=== PATIENT | male | born 1940 | race Caucasian/White ===

== ENCOUNTER 2017-05-20 11:33 | Day surgery (SDC) | payer MEDICARE, OTHER ==
[2017-05-20] MEDS ORDERED: PROPOFOL 10 MG/ML VIAL IV ONE (14:00)
[2017-05-20] MEDS ORDERED: FENTANYL PF 100MCG/2ML VIAL IV ONE (14:00)
[2017-05-20] MEDS ORDERED: LIDOCAINE 2% MDV (20MG/ML) 20ML VIAL IV ONE (14:00)
--- NOTE | 2017-05-21 13:00 | Operative Note ---
DATE OF SURGERY: 05/20/2017 OPERATION: 1. ESOPHAGOGASTRODUODENOSCOPY. 2. COLONOSCOPY. PREOPERATIVE DIAGNOSIS: Weight loss of unclear origin. POSTOPERATIVE DIAGNOSIS: Normal upper and lower endoscopies. PROCEDURE: After informed consent was obtained from the patient, he was placed in the left lateral decubitus position in the endoscopy suite, sedated and monitored by the department of anesthesia. Once sedated, a well-lubricated [id number] gastroscope was placed in the posterior oropharynx and under direct visualization passed to the proximal esophagus. The endoscope was advanced through the proximal, mid, and distal esophagus. The GE junction, esophagus, gastric body, antrum, pylorus, duodenal bulb, and sweep were unremarkable. J-turn views of the proximal stomach were unremarkable. The endoscope was then straightened and retracted from the patient with no new findings noted. Digital rectal exam was unremarkable. A well-lubricated [id number] colonoscope was inserted into the rectum and advanced to the cecum. Preparation quality was good. The cecum, ascending colon, transverse colon, descending colon, sigmoid colon, and rectum were unremarkable. No polyps, mass lesions, or inflammation seen. Forward and J-turn views of the rectum and anorectum were unremarkable. The endoscope was straightened, the rectal ampulla deflated, and the endoscope was removed. RECOMMENDATIONS: Given this patient's weight loss of unclear etiology, I have suggested he undergo a CT of the abdomen and pelvis, particularly if this has not been recently performed. As always, thank you for allowing me to participate in the healthcare of your patients. CC: Mark REED
== END 2017-05-20 13:45 | disposition home or self-care (01) ==
LOC: HOP 11:33
PROVIDERS: ATTEND Internal Medicine Gastroenterology
DX: R63.4 Abnormal weight loss (principal); D64.9 Anemia, unspecified; G11.9 Hereditary ataxia, unspecified; E78.00 Pure hypercholesterolemia, unspecified; E11.9 Type 2 diabetes mellitus without complications
CPT/HCPCS: 00810; 43235; G0121

== ENCOUNTER 2017-07-21 11:25 | Inpatient (IN) | payer MEDICARE, OTHER ==
[2017-07-21] MEDS ORDERED: 0.9 % SODIUM CHLORIDE 1,000 ML BAG IV ONE (11:32)
[2017-07-21 11:51] LABS: BASO % 0.3 % (0-6); EOS % 0.7 % (0-6); GRAN % 72.9 % (47-80); HEMATOCRIT 23.5 % (42.0-52.0); HEMOGLOBIN 7.4 gm/dl (14.0-18.0); LYMPH % 15.4 % (16-45); MEAN CELL VOLUME 115.8 fl (81-97); MEAN CORPUSCULAR HGB CONC 31.5 g/dl (32-36); MONO % 10.7 % (0-9); PLATELET COUNT 256 K/uL (130-400); RED BLOOD COUNT 2.03 M/uL (4.40-5.70); RED CELL DISTRIBUTION WIDTH 15.1 % (11.5-14.5); WHITE BLOOD COUNT W/O DIFF 7.4 K/uL (4.2-12.2)
[2017-07-21 11:53] LABS: MEAN CORPUSCULAR HEMOGLOBIN 36.4 pg (27-33)
--- NOTE | 2017-07-21 11:54 | Emergency Department Record ---
History of Present Illness - General Chief complaint: Weakness Stated complaint: WEAK Time Seen by Provider: 07/21/17 11:52 Mode of Arrival: EMS - History of Present Illness Onset/Timin -: Month(s) Location: Generalized Severity: Moderate Consistency: Constant Improves with: None Worsens with: Exertion Context: History of similar Associated Symptoms: Loss of appetite, Other - [place] Coma Scale Eye Response: (4) Open spontaneously Motor Response: (6) Obeys commands Verbal Response: (5) Oriented [place] Total: 15 - Related Data Allergies Allergy/AdvReac Type Severity Reaction Status Date / Time No Known Drug Intolerances Allergy Unknown PT UNSURE Unverified 07/21/17 11:30 OF REACTION Allergies: Allergy Unknown PT UNSURE Uncoded 07/21/17 11:30 OF REACTION Travel Screening - Travel/Exposure Within Last 30 Days Have you traveled within the last 30 days?: No - Travel/Exposure Within Last Year Have you traveled outside the [place] in the last year?: No - Additonal Travel Details Have you been exposed to anyone with a communicable illness?: No - Travel Symptoms Symptom Screening: None Review of Systems Reviewed: No additional complaints except as noted below Constitutional: Reports: As per HPI. Denies: Chills, Fever, Malaise, Night sweats, Weakness, Weight change Eyes: Reports: As per HPI. Denies: Eye discharge, Eye pain, Photophobia, Vision change ENT: Reports: As per HPI, Congestion. Denies: Dental pain, Ear pain, Epistaxis , Hearing loss, Throat pain Respiratory: Reports: As per HPI, Cough. Denies: Dyspnea, Hemoptysis, Stridor, Wheezes Cardiovascular: Reports: As per HPI, Other (left sided chest pain). Denies: Arrhythmia, Chest pain, Dyspnea on exertion, Edema, Murmurs, Orthopnea, Palpitations, Paroxysmal nocturnal dyspnea, Rheumatic Fever, Syncope Endocrine: Reports: As per HPI. Denies: Fatigue, Heat or cold intolerance, Polydipsia, Polyuria Gastrointestinal: Reports: As per HPI. Denies: Abdominal pain, Constipation, Diarrhea, Hematemesis, Hematochezia, Melena, Nausea, Vomiting Genitourinary: Reports: As per HPI. Denies: Dysuria, Frequency, Hematuria, Incontinence, Retention, Testicular pain, Testicular mass, Urgency Musculoskeletal: Reports: As per HPI. Denies: Arthralgia, Back pain, Gout, Joint swelling, Myalgia, Neck pain Skin: Reports: As per HPI. Denies: Bruising, Change in color, Change in hair/ nails, Lesions, Pruritus, Rash Neurological: Reports: As per HPI. Denies: Abnormal gait, Confusion, Headache, Numbness, Paresthesias, Seizure, Tingling, Tremors, Vertigo, Weakness Psychiatric: Reports: As per HPI. Denies: Anxiety, Auditory hallucinations, Depression, Homicidal thoughts, Suicidal thoughts, Visual hallucinations Hematological/Lymphatic: Reports: As per HPI. Denies: Anemia, Blood Clots, Easy bleeding, Easy bruising, Swollen glands Past Medical History - SOCIAL HISTORY Smoking Status: Former smoker Alcohol Use: None Drug Use: None - RESPIRATORY Hx Respiratory Disorders: No - CARDIOVASCULAR Hx Cardio Disorders: Yes Comment:: high cholesterol - NEURO Hx Neuro Disorders: Yes Hx Neuropathy: Yes Hx Weakness: Yes Comment:: ataxia - GI Hx GI Disorders: Yes Hx Reflux: Yes Hx Wt Loss/Wt Gain: Yes (weight loss of 30lbs in last year) Hx of Polyps: Yes - Hx Genitourinary Disorders: Yes Hx Prostate Problems: Yes - ENDOCRINE Hx Endocrine Disorders: Yes Hx Diabetes: Yes - MUSCULOSKELETAL Hx Musculoskeletal Disorders: No - PSYCH Hx Psych Problems: No - HEMATOLOGY/ONCOLOGY Hx Hematology/Oncology Disorders: Yes Hx Anemia: Yes Family Medical History Any Significant Family History?: Yes Hx Cancer: Brother/Sister Hx Dementia: Mother Hx Diabetes: Brother/Sister Hx Heart Disease: Brother/Sister Physical Exam - General General Appearance: Alert, Oriented x3, Cooperative, No acute distress - Head Head exam: Normal inspection - Eye Eye exam: Normal appearance, PERRL Pupils: Normal accommodation - ENT ENT exam: Normal exam, Mucous membranes moist, Normal external ear exam, Normal orophraynx, TM's normal bilaterally Ear exam: Normal external inspection. negative: External canal tenderness Nasal Exam: Normal inspection. negative: Discharge, Sinus tenderness Mouth exam: Normal external inspection, Tongue normal Teeth exam: Normal inspection. negative: Dental caries Throat exam: Normal inspection. negative: Tonsillar erythema, Tonsillar exudate - Neck Neck exam: Normal inspection, Full ROM. negative: Tenderness - Respiratory Respiratory exam: Decreased breath sounds (on the left side). negative: Respiratory distress - Cardiovascular Cardiovascular Exam: Regular rate, Normal rhythm, Normal heart sounds - GI/Abdominal GI/Abdominal exam: Soft, Normal bowel sounds. negative: Tenderness - Rectal Rectal exam: Deferred - exam: Deferred - Extremities Extremities exam: Normal inspection, Full ROM, Normal capillary refill. negative: Tenderness - Back Back exam: Reports: Normal inspection, Full ROM. Denies: Muscle spasm, Rash noted, Tenderness - Neurological Neurological exam: Alert, Normal gait, Oriented X3, Reflexes normal - Psychiatric Psychiatric exam: Normal affect, Normal mood - Skin Skin exam: Dry, Intact, Normal color, Warm Course Vital Signs 07/21/17 11:37 Temperature 98.3 F Pulse Rate 79 Respiratory 16 Rate Blood Pressure 143/73 Pulse Ox 96 patient looking better after IV fluids - Reevaluation(s) Reevaluation #1: Discussed case with Dr. Byrd and he was going for an iron infusion through [facility] in [place] on Jul 28. He was set up with his first iron infusion jul 28. He had a EGD only showed hiatal hernia and colonoscopy which was negative about one month ago. 07/21/17 12:44 07/21/17 12:49 Reevaluation #2: discussed case with Dr. Rios and will admit 07/21/17 13:24 Medical Decision Making - Data Complexity MDM Data: Labs Ordered and/or Reviewed, X-Ray Ordered and/or Reviewed (chest xray round left infiltrate which favors a pneumonia), EKG Ordered and/or Reviewed (No acute changes) - Lab Data Result diagrams: 07/21/17 11:36 07/21/17 11:36 Disposition Clinical Impression: Cerebral ataxia Anemia Qualifiers: Anemia type: unspecified type Qualified Code(s): D64.9 - Anemia, unspecified Pneumonia Qualifiers: Pneumonia type: due to unspecified organism Laterality: left Lung location: upper lobe of lung Qualified Code(s): J18.1 - Lobar pneumonia, unspecified organism Decision to Admit: Admit from ER Condition: (2) Stable Forms: Patient Portal Access Time of Disposition: 13:25 Quality - Quality Measures Quality Measures: N/A - Blood Pressure Screening Does Patient Have Any of the Following: No Blood Pressure Classification: Hypertensive Reading Systolic Measurement: 143 Diastolic Measurement: 73 Screening for High Blood Pressure: < Pre-Hypertensive BP, F/U Documented > [ [id number]] Pre-Hypertensive Follow-up Interventions: Referral to alternative/primary care provider.
[2017-07-21 12:08] LABS: BLOOD UREA NITROGEN 17 mg/dL (8-23); CREATININE 0.6 mg/dL (0.7-1.2); EST GLOMERULAR FILTRATION RATE > 60 mL/min
[2017-07-21 12:11] LABS: GLUCOSE,RANDOM 156 mg/dL (74-109)
[2017-07-21] MEDS ORDERED: CEFTRIAXONE SODIUM 1 GM in 0.9 % SODIUM CHLORIDE 100ML 100 ML IVPB ONE (12:33)
[2017-07-21] MEDS ORDERED: AZITHROMYCIN 500 MG TABLET PO ONE (12:33)
[2017-07-21 13:31] LABS: % SATURATION 26 % (20-50)
[2017-07-21] MEDS ORDERED: PRAVASTATIN SODIUM 40 MG PO SCH (14:15)
[2017-07-21] MEDS ORDERED: ASPIRIN 81 MG CHEWABLE TABLET PO SCH (16:00)
[2017-07-21] MEDS ORDERED: Non-Formulary MISC (Omeprazole [Prilosec] 20 MG) PO SCH (16:00)
--- NOTE | 2017-07-21 16:00 | History & Physical ---
History of Present Illness - Date of Service Date of Service for History & Physical: 07/22/17 - History of Present Illness History of Present Illness: Mr. Cardona is a 76 y/o male who comes in with complaint of weakness over the past several months. The patient's PCP Dr. Cunha has been working up the patient's progressive anemia and he most recently had EGD/Colonoscopy on Jul 10 which only revealed a small hiatal hernia but no GI bleed. On arrival to the ED the patient was noted to have a Hgb 7.4, with macrocytosis and low reticulocyte count. Labs otherwise were unremarkable but chest showing and left lower lobe infiltrate. The patient was started on Ceftriaxone and Azithromycin and admitted for further evaluation. Travel Screening - Travel/Exposure Within Last 30 Days Have you traveled within the last 30 days?: No - Travel/Exposure Within Last Year Have you traveled outside the [place] in the last year?: No - Additonal Travel Details Have you been exposed to anyone with a communicable illness?: No - Travel Symptoms Symptom Screening: None Review of Systems Constitutional: Reports: As per HPI. Denies: Chills, Fever, Malaise, Night sweats, Weakness, Weight change Eyes: Reports: As per HPI. Denies: Eye discharge, Eye pain, Photophobia, Vision change ENT: Reports: As per HPI, Congestion. Denies: Dental pain, Ear pain, Epistaxis , Hearing loss, Throat pain Respiratory: Reports: As per HPI, Cough. Denies: Dyspnea, Hemoptysis, Stridor, Wheezes Cardiovascular: Reports: As per HPI, Other (left sided chest pain). Denies: Arrhythmia, Chest pain, Dyspnea on exertion, Edema, Murmurs, Orthopnea, Palpitations, Paroxysmal nocturnal dyspnea, Rheumatic Fever, Syncope Endocrine: Reports: As per HPI. Denies: Fatigue, Heat or cold intolerance, Polydipsia, Polyuria Gastrointestinal: Reports: As per HPI. Denies: Abdominal pain, Constipation, Diarrhea, Hematemesis, Hematochezia, Melena, Nausea, Vomiting Genitourinary: Reports: As per HPI. Denies: Dysuria, Frequency, Hematuria, Incontinence, Retention, Testicular pain, Testicular mass, Urgency Musculoskeletal: Reports: As per HPI. Denies: Arthralgia, Back pain, Gout, Joint swelling, Myalgia, Neck pain Skin: Reports: As per HPI. Denies: Bruising, Change in color, Change in hair/ nails, Lesions, Pruritus, Rash Neurological: Reports: As per HPI. Denies: Abnormal gait, Confusion, Headache, Numbness, Paresthesias, Seizure, Tingling, Tremors, Vertigo, Weakness Psychiatric: Reports: As per HPI. Denies: Anxiety, Auditory hallucinations, Depression, Homicidal thoughts, Suicidal thoughts, Visual hallucinations Hematological/Lymphatic: Reports: As per HPI. Denies: Anemia, Blood Clots, Easy bleeding, Easy bruising, Swollen glands Past Medical History - SOCIAL HISTORY Smoking Status: Former smoker Alcohol Use: None Drug Use: None - RESPIRATORY Hx Respiratory Disorders: No - CARDIOVASCULAR Hx Cardio Disorders: Yes Comment:: high cholesterol - NEURO Hx Neuro Disorders: Yes Hx Neuropathy: Yes Hx Weakness: Yes Comment:: ataxia - GI Hx GI Disorders: Yes Hx Reflux: Yes Hx Wt Loss/Wt Gain: Yes (weight loss of 30lbs in last year) Hx of Polyps: Yes - Hx Genitourinary Disorders: Yes Hx Prostate Problems: Yes - ENDOCRINE Hx Endocrine Disorders: Yes Hx Diabetes: Yes - MUSCULOSKELETAL Hx Musculoskeletal Disorders: No - PSYCH Hx Psych Problems: No - HEMATOLOGY/ONCOLOGY Hx Hematology/Oncology Disorders: Yes Hx Anemia: Yes Family Medical History Any Significant Family History?: Yes Hx Cancer: Brother/Sister Hx Dementia: Mother Hx Diabetes: Brother/Sister Hx Heart Disease: Brother/Sister H&P Meds/Allergies - Allergies Allergies: Allergies Allergy/AdvReac Type Severity Reaction Status Date / Time No Known Drug Intolerances Allergy Unknown PT UNSURE Unverified 07/21/17 11:30 OF REACTION Allergies: Allergy Unknown PT UNSURE Uncoded 07/21/17 11:30 OF REACTION - Active Medications Active Medications: Current Medications Metformin HCl (Glucophage Ir) 500 mg PO DAILY [facility] Non-Formulary Medication (Finasteride [Finasteride]) 5 mg PO DAILY [facility] Non-Formulary Medication (Pravastatin Sodium [Pravastatin Sodium]) 40 mg PO QD [facility] Physical Exam - General General Appearance: Alert, Oriented x3, Cooperative, No acute distress - Head Head exam: Normal inspection - Eye Eye exam: Normal appearance, PERRL Pupils: Normal accommodation - ENT ENT exam: Normal exam, Mucous membranes moist, Normal external ear exam, Normal orophraynx, TM's normal bilaterally Ear exam: Normal external inspection. negative: External canal tenderness Nasal Exam: Normal inspection. negative: Discharge, Sinus tenderness Mouth exam: Normal external inspection, Tongue normal Teeth exam: Normal inspection. negative: Dental caries Throat exam: Normal inspection. negative: Tonsillar erythema, Tonsillar exudate - Neck Neck exam: Normal inspection, Full ROM. negative: Tenderness - Respiratory Respiratory exam: Decreased breath sounds (on the left side). negative: Respiratory distress - Cardiovascular Cardiovascular Exam: Regular rate, Normal rhythm, Normal heart sounds - GI/Abdominal GI/Abdominal exam: Soft, Normal bowel sounds. negative: Tenderness - Rectal Rectal exam: Deferred - exam: Deferred - Extremities Extremities exam: Normal inspection, Full ROM, Normal capillary refill. negative: Tenderness - Back Back exam: Reports: Normal inspection, Full ROM. Denies: Muscle spasm, Rash noted, Tenderness - Neurological Neurological exam: Alert, Normal gait, Oriented X3, Reflexes normal - Psychiatric Psychiatric exam: Normal affect, Normal mood - Skin Skin exam: Dry, Intact, Normal color, Warm Results - Labs Result Diagrams: 07/22/17 06:10 07/21/17 11:36 VTE H&P Assessment - Risk for VTE Risk for VTE: No Risk Level: Very Low Risk Assessment Date: 07/22/17 Risk Assessment Time: 06:54 VTE Orders Placed or Will Be Placed: No VTE Reason for No Prophylaxis: Not Indicated (pt ambulatory) Plan - Inpatient Certification Inpatient Certification: Admit to inpatient care: Based on my medical assessment, after consideration of patient's risk factors (age, co-morbidities and patient presenting symptoms and acuity), I expect that this patient will remain in the hospital greater than or equal to two midnights and that the services needed warrant inpatient care because: Patient Risk Factors: Community Acquired Pneumonia Estimated length of stay: 3 days The patient may reasonably be expected to be discharged or transferred to a hospital within 96 hours after admission to [facility]. Services needed: Post hospital care (if known): [] I certify that my determination is in accordance with my understanding of Medicare requirements for reasonable and necessary inpatient services. - Detailed Diagnosis and Plan (1) Community acquired pneumonia Current Visit: Yes Status: Acute Base Code: J18.9 - PNEUMONIA, UNSPECIFIED ORGANISM Comment: - CXR showing infiltrate of the left lower lobe CURB 65 - 1. - change IV abx to PO medications today. Currently on Recephin/Azithromycin. - titrate oxygen to maintain sats > 92% (2) Chronic anemia Current Visit: Yes Status: Chronic Base Code: D64.9 - ANEMIA, UNSPECIFIED Comment: - Hgb 7.4, MCV 115.8, retic 0.9 - EGD/Colonoscopy Jul 10 no active bleeding, fecal occult - negative - B12> 600, serum folate >20, Fe 41 - ordered RBC folate and peripheral blood smear. Transfuse if Hb < 7gm/dL - will do iron infusion tomorrow - Ferrous sulphate infusion scheduled in [place] on Jul 28 (3) Diabetes mellitus type 2 in nonobese Current Visit: Yes Status: Acute Base Code: E11.9 - TYPE 2 DIABETES MELLITUS WITHOUT COMPLICATIONS Comment: - serum glucose 156, CBG 162 - may resume Metformin 500mg BID - glucose accucheck measures AcHs (4) Hyperlipidemia Current Visit: Yes Status: Acute Base Code: E78.5 - HYPERLIPIDEMIA, UNSPECIFIED Comment: - resume Pravastatin (5) Cerebral ataxia Current Visit: Yes Status: Acute Base Code: G11.9 - HEREDITARY ATAXIA, UNSPECIFIED Comment: - fall precuations (6) Venous thromboembolism (VTE) prophylaxis not indicated Current Visit: Yes Status: Acute Base Code: [id number] - Comment: - pt is ambulatory, no pharmacological or mechanical prophylaxis needed. (7) Full code status Current Visit: Yes Status: Acute Base Code: Z78.9 - OTHER SPECIFIED HEALTH STATUS Comment: -FULL CODE - Disposition - Will likely D/C tomorrow.
[2017-07-21 17:13] LABS: URINE APPEARANCE CLEAR; URINE BILIRUBIN NEGATIVE (NEGATIVE); URINE BLOOD NEGATIVE (NEGATIVE); URINE COLOR YELLOW; URINE KETONE NEGATIVE (NEGATIVE); URINE LEUKOCYTE ESTERASE NEGATIVE (NEGATIVE); URINE NITRITE NEGATIVE (NEGATIVE); URINE PROTEIN NEGATIVE (NEGATIVE); URINE UROBILINOGEN 0.2 E.U./dL (0.20 - 1.00)
[2017-07-21] MEDS: PRAVASTATIN SODIUM 40 MG PO SCH (19:32)
[2017-07-21] MEDS ORDERED: NAPROXEN 250 MG TABLET PO ONE (21:30)
[2017-07-21] MEDS: CEFTRIAXONE SODIUM 1 GM in 0.9 % SODIUM CHLORIDE 100ML 100 ML IVPB SCH (22:12)
[2017-07-21] MEDS: 0.9 % SODIUM CHLORIDE 1000ML 1,000 ML IV PRN (22:12)
[2017-07-22 06:36] LABS: BASO % 0.3 % (0-6); EOS % 1.6 % (0-6); GRAN % 72.6 % (47-80); HEMATOCRIT 20.4 % (42.0-52.0); LYMPH % 13.5 % (16-45); MEAN CORPUSCULAR HGB CONC 31.9 g/dl (32-36); MEAN PLATELET VOLUME 10.8 fl (7.4-10.4); PLATELET COUNT 229 K/uL (130-400); RED BLOOD COUNT 1.74 M/uL (4.40-5.70); RED CELL DISTRIBUTION WIDTH 15.2 % (11.5-14.5); WHITE BLOOD COUNT W/O DIFF 6.8 K/uL (4.2-12.2)
[2017-07-22] MEDS: PANTOPRAZOLE SODIUM 40 MG TABLET PO SCH (06:55)
[2017-07-22 07:07] LABS: MEAN CORPUSCULAR HEMOGLOBIN 37.3 pg (27-33)
[2017-07-22 07:13] LABS: MEAN CELL VOLUME 117.2 fl (81-97)
--- NOTE | 2017-07-22 07:18 | RADIOLOGY REPORT ---
EXAM: CHEST, TWO VIEWS HISTORY: SHORTNESS OF BREATH FOR ONE AND A HALF YEARS. ACUTE NONPRODUCTIVE COUGH FOR ONE MONTH. TECHNIQUE: Two views of the chest were obtained. Comparison: Chest x-ray 05/05/17. FINDINGS: There is a new rounded opacity overlying the superior segment of the left lower lobe measuring 4.3 cm. Blunting of the left costophrenic angle consistent with pleural effusion. Minimal strandy density left base likely atelectasis. The right lung is clear. The cardiac silhouette is top normal in size. Elevated left hemidiaphragm. Osteopenia. IMPRESSION: NEW ROUNDED DENSITY PROJECTING OVER THE SUPERIOR SEGMENT OF THE LEFT LOWER LOBE MEASURING 4.3 CM LIKELY DUE TO PNEUMONIA GIVEN THE RAPID APPEARANCE FROM THE PRIOR STUDY. RECOMMEND FOLLOW-UP AFTER ANTIBIOTIC THERAPY TO INSURE CLEARING. PROBABLE SMALL LEFT PLEURAL EFFUSION. JOB NUMBER: [id number] [facility]
[2017-07-22] MEDS: ASPIRIN 81 MG CHEWABLE TABLET PO SCH (10:06)
[2017-07-22] MEDS: METFORMIN 500 MG TABLET PO SCH (10:07)
[2017-07-22] MEDS: CEFTRIAXONE SODIUM 1 GM in 0.9 % SODIUM CHLORIDE 100ML 100 ML IVPB SCH (10:07)
[2017-07-22] MEDS: AZITHROMYCIN 500 MG TABLET PO SCH (10:08)
[2017-07-22 10:32] LABS: IMMED. SPIN CROSSMATCH COMPATIBLE
[2017-07-22 10:33] LABS: ABO GROUP AB; ANTIBODY SCREEN NEGATIVE (NEGATIVE); RH TYPE NEGATIVE
[2017-07-22] MEDS ORDERED: ACETAMINOPHEN 500 MG TABLET PO PRN (11:29)
[2017-07-22] MEDS ORDERED: ALPRAZOLAM 0.25 MG TABLET PO ONE (13:52)
[2017-07-22] MEDS ORDERED: DIPHENHYDRAMINE HCL 25 MG CAPSULE PO PRN (16:08)
[2017-07-22] MEDS ORDERED: CEFDINIR 300 MG CAPSULE PO SCH (16:30)
--- NOTE | 2017-07-22 16:30 | Physician Progress Note ---
Subjective - Date Date of Physician Progress Note: 07/22/17 - Subjective Subjective Comment: Patient reports feeling weaker this morning. He appears anxious but is alert, and oriented. Objective - Vital Signs Vital Signs: Vital Signs - Last 24 Hrs Temp Pulse Pulse Resp BP BP Pulse Ox 07/22/17 14:15 99.1 F 85 18 119/68 94 L 07/22/17 13:00 99.1 F 86 20 127/72 96 07/22/17 12:25 98.6 F 116/71 07/22/17 11:21 98.6 F 86 20 116/71 95 07/22/17 10:00 98.2 F 89 18 122/72 96 07/22/17 09:00 22 07/22/17 06:00 82 18 126/70 07/22/17 04:43 88 16 96 07/21/17 22:50 88 16 95 07/21/17 21:00 18 07/21/17 20:58 99.6 F 07/21/17 20:00 99.9 F H 86 18 109/59 96 - General General Appearance: Alert, Oriented x3, Cooperative, No acute distress - Head Head exam: Normal inspection - Eye Eye exam: Normal appearance, PERRL Pupils: Normal accommodation - ENT ENT exam: Normal exam, Mucous membranes moist, Normal external ear exam, Normal orophraynx, TM's normal bilaterally Ear exam: Normal external inspection. negative: External canal tenderness Nasal Exam: Normal inspection. negative: Discharge, Sinus tenderness Mouth exam: Normal external inspection, Tongue normal Teeth exam: Normal inspection. negative: Dental caries Throat exam: Normal inspection. negative: Tonsillar erythema, Tonsillar exudate - Neck Neck exam: Normal inspection, Full ROM. negative: Tenderness - Respiratory Respiratory exam: Decreased breath sounds (on the left side). negative: Respiratory distress - Cardiovascular Cardiovascular Exam: Regular rate, Normal rhythm, Normal heart sounds - GI/Abdominal GI/Abdominal exam: Soft, Normal bowel sounds. negative: Tenderness - Rectal Rectal exam: Deferred - exam: Deferred - Extremities Extremities exam: Normal inspection, Full ROM, Normal capillary refill. negative: Tenderness - Back Back exam: Reports: Normal inspection, Full ROM. Denies: Muscle spasm, Rash noted, Tenderness - Neurological Neurological exam: Alert, Normal gait, Oriented X3, Reflexes normal - Psychiatric Psychiatric exam: Normal affect, Normal mood - Skin Skin exam: Dry, Intact, Normal color, Warm Assessment and Plan - Assessment and Plan (1) Community acquired pneumonia Current Visit: Yes Status: Acute Base Code: J18.9 - PNEUMONIA, UNSPECIFIED ORGANISM Comment: - CXR showing infiltrate of the left lower lobe CURB 65 - 1. - change IV abx to PO medications today. Currently on Recephin/Azithromycin. - titrate oxygen to maintain sats > 92% (2) Chronic anemia Current Visit: Yes Status: Chronic Base Code: D64.9 - ANEMIA, UNSPECIFIED Comment: - Hgb 7.4 --> 6.5 , MCV 115.8, retic 0.9 - EGD/Colonoscopy Jul 10 no active bleeding, fecal occult - negative - B12> 600, serum folate >20, Fe 41 - ordered RBC folate and peripheral blood smear. Transfuse if Hb < 7gm/dL - will do iron infusion tomorrow - Ferrous sulphate infusion scheduled in [place] on Jul 28 (3) Diabetes mellitus type 2 in nonobese Current Visit: Yes Status: Acute Base Code: E11.9 - TYPE 2 DIABETES MELLITUS WITHOUT COMPLICATIONS Comment: - serum glucose 156, CBG 162 - may resume Metformin 500mg BID - glucose accucheck measures AcHs (4) Hyperlipidemia Current Visit: Yes Status: Acute Base Code: E78.5 - HYPERLIPIDEMIA, UNSPECIFIED Comment: - resume Pravastatin (5) Cerebral ataxia Current Visit: Yes Status: Acute Base Code: G11.9 - HEREDITARY ATAXIA, UNSPECIFIED Comment: - fall precuations (6) Venous thromboembolism (VTE) prophylaxis not indicated Current Visit: Yes Status: Acute Base Code: [id number] - Comment: - pt is ambulatory, no pharmacological or mechanical prophylaxis needed. (7) Full code status Current Visit: Yes Status: Acute Base Code: Z78.9 - OTHER SPECIFIED HEALTH STATUS Comment: -FULL CODE - Disposition Disposition: - Will likely D/C tomorrow. Results - Labs Result Diagrams: 07/22/17 06:10 07/21/17 11:36 Labs Last 24 Hours: Laboratory Results - last 24 hr 07/21/17 07/21/17 07/21/17 17:00 17:00 17:15 WBC RBC Hgb Hct MCV MCH MCHC RDW Plt Count MPV Gran % Lymphocytes % Monocytes % Eosinophils % Basophils % POC Glucose 162 H Folate Urine Color Yellow Urine Appearance Clear Urine pH 6.0 Ur Specific [place] 1.025 Urine Protein Negative Urine Glucose (UA) 100 mg/dl H Urine Ketones Negative Urine Blood Negative Urine Nitrite Negative Urine Bilirubin Negative Urine Urobilinogen 0.2 Ur Leukocyte Esterase Negative Stool Occult Blood Negative ABO Group Rh Factor Antibody Screen 07/22/17 07/22/17 07/22/17 06:10 06:10 06:10 WBC 6.8 RBC 1.74 L Hgb Hct 20.4 L MCV 117.2 H MCH 37.3 H MCHC 31.9 L RDW 15.2 H Plt Count 229 MPV 10.8 H Gran % 72.6 Lymphocytes % 13.5 L Monocytes % 12.0 H Eosinophils % 1.6 Basophils % 0.3 POC Glucose Folate > 20.00 Urine Color Urine Appearance Urine pH Ur Specific [place] Urine Protein Urine Glucose (UA) Urine Ketones Urine Blood Urine Nitrite Urine Bilirubin Urine Urobilinogen Ur Leukocyte Esterase Stool Occult Blood ABO Group Ab Rh Factor Negative Antibody Screen Negative DVT/PE Assessment - Risk for VTE Risk for VTE: No Risk Level: Very Low Risk Assessment Date: 07/22/17 Risk Assessment Time: 06:54 VTE Orders Placed or Will Be Placed: No VTE Reason for No Prophylaxis: Not Indicated (pt ambulatory) - Active Medicaitons Current Medications: Current Medications Acetaminophen (Tylenol 500mg Tab) 500 mg PO Q4H PRN PRN Reason: Abdominal Pain Last Admin: 07/22/17 12:38 Dose: 500 mg Aspirin (Aspirin Chewable) 81 mg PO DAILY [facility] Last Admin: 07/22/17 10:06 Dose: 81 mg Azithromycin (Zithromax) 500 mg PO DAILY [facility] Last Admin: 07/22/17 10:08 Dose: 500 mg Diphenhydramine HCl (Benadryl Capsule) 25 mg PO QHS PRN PRN Reason: INSOMNIA Sodium Chloride () 1,000 mls @ 100 mls/hr IV .Q10H PRN PRN Reason: LARGE VOLUME IV Last Admin: 07/21/17 22:12 Dose: 100 mls/hr Ceftriaxone Sodium 1 gm/ (Sodium Chloride) 100 mls @ 100 mls/hr IVPB Q12HR [facility] Stop: 07/26/17 22:01 Last Admin: 07/22/17 10:07 Dose: 100 mls/hr Metformin HCl (Glucophage Ir) 500 mg PO DAILY [facility] Last Admin: 07/22/17 10:07 Dose: 500 mg Non-Formulary Medication (Finasteride [Finasteride]) 5 mg PO 1730 [facility] Non-Formulary Medication (Pravastatin Sodium [Pravastatin Sodium]) 40 mg PO 1730 [facility] Last Admin: 07/21/17 19:32 Dose: Not Given [facility] Admin: 07/22/17 06:55 Dose: 40 mg AMI Plan - Labs Result Diagrams: 07/22/17 06:10 07/21/17 11:36
[2017-07-22 17:00] LABS: HEMATOCRIT 23.7 % (42.0-52.0); HEMOGLOBIN 7.5 gm/dl (14.0-18.0)
[2017-07-22] MEDS: PRAVASTATIN SODIUM 40 MG PO SCH (17:01)
[2017-07-22] MEDS ORDERED: Non-Formulary MISC (Finasteride [Finasteride] 5 MG) PO SCH (17:30)
[2017-07-23] MEDS: 0.9 % SODIUM CHLORIDE 1000ML 1,000 ML IV PRN (02:27)
[2017-07-23] MEDS: PANTOPRAZOLE SODIUM 40 MG TABLET PO SCH (07:03)
[2017-07-23] MEDS ORDERED: CEFDINIR 300 MG CAPSULE PO SCH (10:00)
[2017-07-23] MEDS: AZITHROMYCIN 500 MG TABLET PO SCH (10:06)
[2017-07-23] MEDS: ASPIRIN 81 MG CHEWABLE TABLET PO SCH (10:06)
[2017-07-23] MEDS: METFORMIN 500 MG TABLET PO SCH (10:06)
[2017-07-23] MEDS ORDERED: IRON SUCROSE COMPLEX 500 MG in 0.9 % SODIUM CHLORIDE 250ML 250 ML IVPB ONE (11:15)
--- NOTE | 2017-07-23 16:37 | Discharge Summary ---
Providers Date of admission: 07/21/17 15:47 Attending physician: SULEMA MORRIS Primary care physician: JEROME DICKSON D.O. Physical Exam - Vital Signs Vital Signs: Vital Signs - Last 24 Hrs Temp Pulse Resp BP Pulse Ox 07/23/17 14:00 99.3 F 86 18 130/74 95 07/23/17 10:00 98.8 F 89 18 97/72 95 07/23/17 09:44 20 07/23/17 06:00 98.1 F 78 18 140/72 94 L 07/22/17 21:54 98.8 F 76 18 133/75 94 L 07/22/17 21:18 16 94 L 07/22/17 18:00 97.5 F L 79 18 120/63 96 - General General Appearance: Alert, Oriented x3, Cooperative, No acute distress - Head Head exam: Normal inspection - Eye Eye exam: Normal appearance, PERRL Pupils: Normal accommodation - ENT ENT exam: Normal exam, Mucous membranes moist, Normal external ear exam, Normal orophraynx, TM's normal bilaterally Ear exam: Normal external inspection. negative: External canal tenderness Nasal Exam: Normal inspection. negative: Discharge, Sinus tenderness Mouth exam: Normal external inspection, Tongue normal Teeth exam: Normal inspection. negative: Dental caries Throat exam: Normal inspection. negative: Tonsillar erythema, Tonsillar exudate - Neck Neck exam: Normal inspection, Full ROM. negative: Tenderness - Respiratory Respiratory exam: Decreased breath sounds (on the left side). negative: Respiratory distress - Cardiovascular Cardiovascular Exam: Regular rate, Normal rhythm, Normal heart sounds - GI/Abdominal GI/Abdominal exam: Soft, Normal bowel sounds. negative: Tenderness - Rectal Rectal exam: Deferred - exam: Deferred - Extremities Extremities exam: Normal inspection, Full ROM, Normal capillary refill. negative: Tenderness - Back Back exam: Reports: Normal inspection, Full ROM. Denies: Muscle spasm, Rash noted, Tenderness - Neurological Neurological exam: Alert, Normal gait, Oriented X3, Reflexes normal - Psychiatric Psychiatric exam: Normal affect, Normal mood - Skin Skin exam: Dry, Intact, Normal color, Warm Hospitalization - Hospitalization Admission Diagnosis: pneumonia left upper lobe. left pleural effusion - Problem List/Discharge Diagnosis (1) Community acquired pneumonia Current Visit: Yes Status: Acute Base Code: J18.9 - PNEUMONIA, UNSPECIFIED ORGANISM Comment: - CXR showing infiltrate of the left lower lobe CURB 65 - 1. - change IV abx to PO medications today. Currently on Recephin/Azithromycin. - titrate oxygen to maintain sats > 92% (2) Chronic anemia Current Visit: Yes Status: Chronic Base Code: D64.9 - ANEMIA, UNSPECIFIED Comment: - Hgb 7.4 --> 6.5 , MCV 115.8, retic 0.9 - EGD/Colonoscopy Jul 10 no active bleeding, fecal occult - negative - B12> 600, serum folate >20, Fe 41 - ordered RBC folate and peripheral blood smear. Transfuse if Hb < 7gm/dL - will do iron infusion tomorrow - Ferrous sulphate infusion scheduled in [place] on Jul 28 (3) Diabetes mellitus type 2 in nonobese Current Visit: Yes Status: Acute Base Code: E11.9 - TYPE 2 DIABETES MELLITUS WITHOUT COMPLICATIONS Comment: - serum glucose 156, CBG 162 - may resume Metformin 500mg BID - glucose accucheck measures AcHs (4) Hyperlipidemia Current Visit: Yes Status: Acute Base Code: E78.5 - HYPERLIPIDEMIA, UNSPECIFIED Comment: - resume Pravastatin (5) Cerebral ataxia Current Visit: Yes Status: Acute Base Code: G11.9 - HEREDITARY ATAXIA, UNSPECIFIED Comment: - fall precuations (6) Venous thromboembolism (VTE) prophylaxis not indicated Current Visit: Yes Status: Acute Base Code: [id number] - Comment: - pt is ambulatory, no pharmacological or mechanical prophylaxis needed. (7) Full code status Current Visit: Yes Status: Acute Base Code: Z78.9 - OTHER SPECIFIED HEALTH STATUS Comment: -FULL CODE - Disposition - Will likely D/C tomorrow. - Hospitalization Course Abnormal Labs: Abnormal Lab Results 07/21/17 07/21/17 07/22/17 Range/Units 17:00 17:15 06:10 RBC 1.74 L (4.40-5.70) M/uL Hgb (14.0-18.0) gm/dl Hct 20.4 L (42.0-52.0) % MCV 117.2 H (81-97) fl MCH 37.3 H (27-33) pg MCHC 31.9 L (32-36) g/dl RDW 15.2 H (11.5-14.5) % MPV 10.8 H (7.4-10.4) fl Lymphocytes % 13.5 L (16-45) % Monocytes % 12.0 H (0-9) % POC Glucose 162 H (70-110) mg/dL Urine Glucose (UA) 100 mg/dl H (NEGATIVE) 07/22/17 Range/Units 16:56 RBC (4.40-5.70) M/uL Hgb 7.5 L (14.0-18.0) gm/dl Hct 23.7 L (42.0-52.0) % MCV (81-97) fl MCH (27-33) pg MCHC (32-36) g/dl RDW (11.5-14.5) % MPV (7.4-10.4) fl Lymphocytes % (16-45) % Monocytes % (0-9) % POC Glucose (70-110) mg/dL Urine Glucose (UA) (NEGATIVE) Condition at Discharge: (2) Stable Discharge Medications - Discharge Medications Prescriptions: Cefdinir 300 mg PO Q12HR 3 Days #6 capsule Azithromycin [Zithromax] 500 mg PO DAILY 3 Days #3 tab Home Medications: Ambulatory Orders Aspirin 81 mg PO QD tab.chew 05/05/17 [Last Taken 07/21/17] Finasteride 5 mg PO QD tab 05/05/17 [Last Taken 07/21/17] Loratadine 10 mg PO QD tab 05/05/17 [Last Taken 07/21/17] Metformin HCl 500 mg PO DAILY tab 05/05/17 [Last Taken 07/21/17] [place]-3 Fatty Acids/Fish Oil [Fish Oil 1,000 mg Softgel] 1 each PO DAILY cap [Last Taken 07/21/17] Omeprazole [Prilosec] 20 mg PO QD cap 05/05/17 [Last Taken 07/21/17] Pravastatin Sodium 40 mg PO QD tab 05/05/17 [Last Taken 07/21/17] Azithromycin [Zithromax] 500 mg PO DAILY 3 Days #3 tab 07/23/17 [Last Taken Unknown] Cefdinir 300 mg PO Q12HR 3 Days #6 capsule 07/23/17 [Last Taken Unknown] Discharge Plan - Discharge Instructions Additional Instructions: - follow up with Dr. Cunha in 5-10 days. - appt with Heme/oncology on Jul 28 - Home care nursing arranged with SW to come out to home tomorrow to assess needs. Quality Measures - Quality Measures Quality Measures: Advance Directives, Documentation of Current Medications in Medical Record, Elder Maltreatment Screen and Follow-Up Plan, Screening for High Blood Pressure and F/U Documented - Current Medications Quality Measure: Measure #130: Documentation of Current Medications - Blood Pressure Screening Quality Measure: Screening for High Blood Pressure and Follow-Up Documented Blood Pressure Classification: Normal BP Reading Systolic Measurement: 116 Diastolic Measurement: 71 Screening for High Blood Pressure: < Normal BP, F/U Not Required > [G8783] - Advance Directives Quality Measure: Measure #47: Care Plan Advance Directives Established: No Advance Directives Information Provided To Patient: No Advance Directives on File: No Living Will: Yes Power of Strip Cutter: Yes Power of Strip Cutter Name: Dayna Cardona - Elder Abuse Suspicion Index Screening: Elder Abuse Suspicion Index Screening Rely on people for bathing, dressing, shopping, banking, etc: No Prevented from getting food, clothes, medication, etc: No Made to feel shamed or threatened by someone: No Forced to sign papers or use money against will: No Feel afraid, touched in ways not wanted or hurt physically: No Poor eye contact, withdrawn, malnourished, cuts or bruises: No Screening Result: Negative result EASI Reference Information: Cassandra KNIGHT, Ирина C, Nia D, Annette Collins.Development and validation of a tool to assist physicians identification of elder abuse: The Elder Abuse Suspicion Index (EASI ). Journal of Elder Abuse and Neglect, 2008; 20 (3): 276-300. - Elder Maltreatment Screen Quality Measures: Elder Maltreatment Screen and Follow-Up Plan Elder Maltreatment Screen: <Negative, No Follow-Up Plan Required> [G8734]
== END 2017-07-23 16:55 | disposition home health service (06) | DRG 194 ==
LOC: ER 11:25 → MEDSURG 15:47
PROVIDERS: ADMIT Internal Medicine; ATTEND Internal Medicine
PROC: 30233N1 Transfusion of Nonautologous Red Blood Cells into Peripheral Vein, Percutaneous Approach (ICD-10-PCS; principal; 2017-07-22)
DX: J18.9 Pneumonia, unspecified organism (principal); G11.9 Hereditary ataxia, unspecified; E78.00 Pure hypercholesterolemia, unspecified; D64.9 Anemia, unspecified; E11.9 Type 2 diabetes mellitus without complications; Z79.84 Long term (current) use of oral hypoglycemic drugs; Z78.9 Other specified health status; Z87.891 Personal history of nicotine dependence
CPT/HCPCS: 36416; 71020; 80048; 81003; 82272; 82553; 82607; 82728; 82746; 82948; 83550; 83605; 84484; 85014; 85018; 85025; 85044; 85730; 86850; 86900; 86901; 93005; 93010; 94760; 96365; 99223; 99233; 99239; 99285; J7050

== ENCOUNTER 2017-10-16 15:40 | Emergency (ER) | payer MEDICARE, OTHER ==
[2017-10-16] MEDS ORDERED: ASPIRIN 81 MG CHEWABLE TABLET PO ONE (15:55)
[2017-10-16] MEDS ORDERED: 0.9 % SODIUM CHLORIDE 1000ML 1,000 ML IV PRN (15:55)
[2017-10-16] MEDS ORDERED: ACETAMINOPHEN 500 MG TABLET PO ONE (15:59)
--- NOTE | 2017-10-16 16:06 | Emergency Department Record ---
History of Present Illness - General Chief Complaint: Chest Pain Stated Complaint: CHEST YAMILA/CHEST PAIN Time Seen by Provider: 10/16/17 15:51 Source: Patient, RN notes reviewed - History of Present Illness Initial Comments: pt came to the ED SOB and cough productive clear mucous and states this came on 4 days ago and he got two units of blood 10 days ago at [facility]. Chest pain mostly with coughing, Patient had one bone marrow and they are planning another bone marrow.GI work up negative for bleeding. CAD history and he said a silent [place]. He stopped smoking at 37 years of age. He also states the chest pain is radiating down the left arm. Patient states when he walks about 15 feet he get chest pain and pain radiates down both arms. Patient has ataxia which is chronic. Patient's hemotologist is at [facility] possible Dr. Baldev Almaraz - Related Data Previous Rx's Medication Instructions Recorded Azithromycin [Zithromax] 500 mg PO DAILY 3 Days #3 tab 07/23/17 Cefdinir 300 mg PO Q12HR 3 Days #6 capsule 07/23/17 Allergies Allergy/AdvReac Type Severity Reaction Status Date / Time No Known Drug Intolerances Allergy Unknown PT UNSURE Unverified 07/21/17 11:30 OF REACTION Allergies: Allergy Unknown PT UNSURE Uncoded 07/21/17 11:30 OF REACTION Review of Systems Reviewed: No additional complaints except as noted below Constitutional: Reports: As per HPI. Denies: Chills, Fever, Malaise, Night sweats, Weakness, Weight change Eyes: Reports: As per HPI. Denies: Eye discharge, Eye pain, Photophobia, Vision change ENT: Reports: As per HPI, Congestion. Denies: Dental pain, Ear pain, Epistaxis , Hearing loss, Throat pain Respiratory: Reports: As per HPI, Cough, Dyspnea. Denies: Hemoptysis, Stridor, Wheezes Cardiovascular: Reports: As per HPI, Chest pain. Denies: Arrhythmia, Dyspnea on exertion, Edema, Murmurs, Orthopnea, Palpitations, Paroxysmal nocturnal dyspnea, Rheumatic Fever, Syncope Endocrine: Reports: As per HPI. Denies: Fatigue, Heat or cold intolerance, Polydipsia, Polyuria Gastrointestinal: Reports: As per HPI. Denies: Abdominal pain, Constipation, Diarrhea, Hematemesis, Hematochezia, Melena, Nausea, Vomiting Genitourinary: Reports: As per HPI. Denies: Dysuria, Frequency, Hematuria, Incontinence, Retention, Testicular pain, Testicular mass, Urgency Musculoskeletal: Reports: As per HPI. Denies: Arthralgia, Back pain, Gout, Joint swelling, Myalgia, Neck pain Skin: Reports: As per HPI. Denies: Bruising, Change in color, Change in hair/ nails, Lesions, Pruritus, Rash Neurological: Reports: As per HPI. Denies: Abnormal gait, Confusion, Headache, Numbness, Paresthesias, Seizure, Tingling, Tremors, Vertigo, Weakness Psychiatric: Reports: As per HPI. Denies: Anxiety, Auditory hallucinations, Depression, Homicidal thoughts, Suicidal thoughts, Visual hallucinations Hematological/Lymphatic: Reports: As per HPI. Denies: Anemia, Blood Clots, Easy bleeding, Easy bruising, Swollen glands Past Medical History - SOCIAL HISTORY Smoking Status: Former smoker Drug Use: None - RESPIRATORY Hx Respiratory Disorders: No - CARDIOVASCULAR Hx Cardio Disorders: Yes Comment:: high cholesterol - NEURO Hx Neuro Disorders: Yes Hx Neuropathy: Yes Hx Weakness: Yes Comment:: ataxia - GI Hx GI Disorders: Yes Hx Reflux: Yes Hx Wt Loss/Wt Gain: Yes (weight loss of 30lbs in last year) Hx of Polyps: Yes - Hx Genitourinary Disorders: Yes Hx Prostate Problems: Yes - ENDOCRINE Hx Endocrine Disorders: Yes Hx Diabetes: Yes - MUSCULOSKELETAL Hx Musculoskeletal Disorders: No - PSYCH Hx Psych Problems: No - HEMATOLOGY/ONCOLOGY Hx Hematology/Oncology Disorders: Yes Hx Anemia: Yes Family Medical History Hx Cancer: Brother/Sister Hx Dementia: Mother Hx Diabetes: Brother/Sister Hx Heart Disease: Brother/Sister Physical Exam - General General Appearance: Alert, Oriented x3, Cooperative, Mild distress - Head Head exam: Normal inspection - Eye Eye exam: Normal appearance, PERRL Pupils: Normal accommodation - ENT ENT exam: Normal exam, Mucous membranes moist, Normal external ear exam, Normal orophraynx, TM's normal bilaterally Ear exam: Normal external inspection. negative: External canal tenderness Nasal Exam: Normal inspection. negative: Discharge, Sinus tenderness Mouth exam: Normal external inspection, Tongue normal Teeth exam: Normal inspection. negative: Dental caries Throat exam: Normal inspection. negative: Tonsillar erythema, Tonsillar exudate - Neck Neck exam: Normal inspection, Full ROM. negative: Tenderness - Respiratory Respiratory exam: Normal lung sounds bilaterally. negative: Respiratory distress - Cardiovascular Cardiovascular Exam: Regular rate, Normal rhythm, Normal heart sounds - GI/Abdominal GI/Abdominal exam: Soft, Normal bowel sounds. negative: Tenderness - Rectal Rectal exam: Deferred - exam: Deferred - Extremities Extremities exam: Normal inspection, Full ROM, Normal capillary refill. negative: Tenderness - Back Back exam: Reports: Normal inspection, Full ROM. Denies: Muscle spasm, Rash noted, Tenderness - Neurological Neurological exam: Alert, Normal gait, Oriented X3, Reflexes normal - Psychiatric Psychiatric exam: Normal affect, Normal mood - Skin Skin exam: Dry, Intact, Normal color, Warm Course - Reevaluation(s) Reevaluation #1: Patient to weak to stand on his own powder. 10/16/17 16:42 Reevaluation #2: discussed case with and she excepted at [facility] the patient. 10/16/17 17:19 Medical Decision Making - Data Complexity MDM Data: Labs Ordered and/or Reviewed (hemoglobin 8.7), X-Ray Ordered and/or Reviewed (chest xray no acute changes ), EKG Ordered and/or Reviewed (sinus tachycardia and new RBBB st depression V1,v2 v3 v4,) - Lab Data Result diagrams: 10/16/17 15:55 10/16/17 15:55 Disposition Clinical Impression: Cough, Unstable angina, Bronchitis Anemia Qualifiers: Anemia type: unspecified type Qualified Code(s): D64.9 - Anemia, unspecified Chest pain Qualifiers: Chest pain type: chest pain due to myocardial ischemia Ischemic chest pain type : unstable angina pectoris Qualified Code(s): I20.0 - Unstable angina Fever Qualifiers: Fever type: unspecified Qualified Code(s): R50.9 - Fever, unspecified Disposition: Acute Care Hospital Transfer Condition: (2) Stable Forms: Patient Portal Access Time of Disposition: 17:24 Quality - Quality Measures Quality Measures: N/A - Blood Pressure Screening Does Patient Have Any of the Following: No Blood Pressure Classification: Pre-Hypertensive BP Reading Systolic Measurement: 148 Diastolic Measurement: 81 Screening for High Blood Pressure: < Pre-Hypertensive BP, F/U Documented > [ G8950] Pre-Hypertensive Follow-up Interventions: Referral to alternative/primary care provider.
[2017-10-16 16:11] LABS: BASO % 0.3 % (0-6); EOS % 0.3 % (0-6); HEMATOCRIT 26.9 % (42.0-52.0); HEMOGLOBIN 8.7 gm/dl (14.0-18.0); LYMPH % 18.6 % (16-45); MEAN CORPUSCULAR HEMOGLOBIN 34.9 pg (27-33); MEAN CORPUSCULAR HGB CONC 32.3 g/dl (32-36); MEAN PLATELET VOLUME 11.1 fl (7.4-10.4); MONO % 11.8 % (0-9); PLATELET COUNT 167 K/uL (130-400); RED BLOOD COUNT 2.49 M/uL (4.40-5.70); RED CELL DISTRIBUTION WIDTH 21.4 % (11.5-14.5); WHITE BLOOD COUNT W/O DIFF 6.5 K/uL (4.2-12.2)
[2017-10-16 16:21] LABS: INFLUENZA A NEGATIVE (NEGATIVE); INFLUENZA B NEGATIVE (NEGATIVE)
[2017-10-16 16:24] LABS: BLOOD UREA NITROGEN 20 mg/dL (8-23)
[2017-10-16 16:25] LABS: CREATININE 0.7 mg/dL (0.7-1.2); EST GLOMERULAR FILTRATION RATE > 60 mL/min
[2017-10-16 16:27] LABS: GLUCOSE,RANDOM 158 mg/dL (74-109)
[2017-10-16] MEDS ORDERED: HEPARIN SODIUM 1000 UNIT/1 ML 10ML VIAL IVP ONE (17:01)
[2017-10-16] MEDS ORDERED: CEFTRIAXONE SODIUM 1 GM in 0.9 % SODIUM CHLORIDE 100ML 100 ML IVPB ONE (17:11)
[2017-10-16] MEDS ORDERED: AZITHROMYCIN 500 MG TABLET PO ONE (17:12)
[2017-10-16] MEDS ORDERED: HEPARIN SODIUM/D5W 25,000 UNITS/500 ML BAG IV SCH (17:15)
--- NOTE | 2017-10-17 23:44 | RADIOLOGY REPORT ---
EXAM: CHEST 2 VIEWS HISTORY: COUGH AND CONGESTION LAST NIGHT. CHEST PAIN. TECHNIQUE: PA and lateral upright views of the chest were obtained. COMPARISON: 07/21/2017. FINDINGS: There is chronic elevation of the left hemidiaphragm, which is unchanged. The heart, mediastinum, and pulmonary vasculature are normal. There is mild atelectasis or scarring at the left lung base, which appears similar to the previous exam. The previously noted infiltrate within the left upper lobe has resolved. There are no visible acute infiltrates or effusions. There is no pneumothorax. The bones appear intact. IMPRESSION: 1. CHRONIC ELEVATION OF THE LEFT HEMIDIAPHRAGM WITH ASSOCIATED LEFT BASILAR ATELECTASIS OR SCARRING. 2. NO ACUTE CHEST PATHOLOGY. J[facility]: [id number] [facility]
== END 2017-10-16 19:07 | disposition short-term general hospital (02) ==
LOC: ER 15:40
DX: I20.0 Unstable angina (principal); D64.9 Anemia, unspecified; J20.9 Acute bronchitis, unspecified; R06.02 Shortness of breath; R05 Cough; R50.81 Fever presenting with conditions classified elsewhere; E11.9 Type 2 diabetes mellitus without complications; R27.0 Ataxia, unspecified; I25.10 Atherosclerotic heart disease of native coronary artery without angina pectoris; I25.2 Old myocardial infarction; Z87.891 Personal history of nicotine dependence; Z79.84 Long term (current) use of oral hypoglycemic drugs
CPT/HCPCS: 71046; 80048; 84484; 85025; 85730; 87400; 93005; 93010; 96365; 96366; 96375; 99285

== ENCOUNTER 2018-05-31 11:59 | Observation (INO) | payer MEDICARE, OTHER ==
[2018-05-31 13:08] LABS: BASO % 0.5 % (0-6); EOS % 1.5 % (0-6); HEMATOCRIT 24.3 % (42.0-52.0); LYMPH % 15.6 % (16-45); MEAN PLATELET VOLUME 10.3 fl (7.4-10.4); MONO % 7.4 % (0-9); PLATELET COUNT 176 K/uL (130-400); RED BLOOD COUNT 2.23 M/uL (4.40-5.70); WHITE BLOOD COUNT W/O DIFF 6.7 K/uL (4.2-12.2)
[2018-05-31 13:13] LABS: MEAN CORPUSCULAR HEMOGLOBIN 35.8 pg (27-33)
[2018-05-31 13:14] LABS: MEAN CORPUSCULAR HGB CONC 32.9 g/dl (32-36); RED CELL DISTRIBUTION WIDTH 18.5 % (11.5-14.5)
--- NOTE | 2018-05-31 13:20 | Emergency Department Record ---
History of Present Illness - General Chief Complaint: Abdominal Pain Stated Complaint: CONSTIPATION Time Seen by Provider: 05/31/18 12:37 Source: Patient, Family Mode of Arrival: Wheelchair Limitations: No limitations - History of Present Illness Initial Comments: pt constipated. he has not gone for several days. he has tried dulcolax and mag citrate. he is having abd pain but no vomiting. he is on a med that is constipating. MD Complaint: Abdominal pain Onset/Timin -: Days(s) Location: Diffuse Radiation: None Severity scale (1-10): 8 Quality: Cramping Consistency: Constant Improves With: Nothing Worsens With: Nothing Associated Symptoms: Constipation - Related Data Home Medications Medication Instructions Recorded Confirmed Last Taken Deferasirox [Jadenu] 1,080 mg PO DAILY 05/31/18 05/31/18 Unknown Allergies Allergy/AdvReac Type Severity Reaction Status Date / Time No Known Drug Intolerances Allergy Unknown PT UNSURE Unverified 07/21/17 11:30 OF REACTION Allergies: Allergy Unknown PT UNSURE Uncoded 07/21/17 11:30 OF REACTION Travel Screening - Travel/Exposure Within Last 30 Days Have you traveled within the last 30 days?: No Review of Systems Reviewed: No additional complaints except as noted below Constitutional: Reports: As per HPI. Denies: Chills, Fever, Malaise, Night sweats, Weakness, Weight change Eyes: Reports: As per HPI. Denies: Eye discharge, Eye pain, Photophobia, Vision change ENT: Reports: As per HPI. Denies: Congestion, Dental pain, Ear pain, Epistaxis , Hearing loss, Throat pain Respiratory: Reports: As per HPI. Denies: Cough, Dyspnea, Hemoptysis, Stridor, Wheezes Cardiovascular: Reports: As per HPI. Denies: Arrhythmia, Chest pain, Dyspnea on exertion, Edema, Murmurs, Orthopnea, Palpitations, Paroxysmal nocturnal dyspnea, Rheumatic Fever, Syncope Endocrine: Reports: As per HPI. Denies: Fatigue, Heat or cold intolerance, Polydipsia, Polyuria Gastrointestinal: Reports: As per HPI. Denies: Abdominal pain, Constipation, Diarrhea, Hematemesis, Hematochezia, Melena, Nausea, Vomiting Genitourinary: Reports: As per HPI. Denies: Dysuria, Frequency, Hematuria, Incontinence, Retention, Testicular pain, Testicular mass, Urgency Musculoskeletal: Reports: As per HPI. Denies: Arthralgia, Back pain, Gout, Joint swelling, Myalgia, Neck pain Skin: Reports: As per HPI. Denies: Bruising, Change in color, Change in hair/ nails, Lesions, Pruritus, Rash Neurological: Reports: As per HPI. Denies: Abnormal gait, Confusion, Headache, Numbness, Paresthesias, Seizure, Tingling, Tremors, Vertigo, Weakness Psychiatric: Reports: As per HPI. Denies: Anxiety, Auditory hallucinations, Depression, Homicidal thoughts, Suicidal thoughts, Visual hallucinations Hematological/Lymphatic: Reports: As per HPI. Denies: Anemia, Blood Clots, Easy bleeding, Easy bruising, Swollen glands Past Medical History - SOCIAL HISTORY Smoking Status: Former smoker - RESPIRATORY Hx Respiratory Disorders: No - CARDIOVASCULAR Hx Cardio Disorders: Yes Comment:: high cholesterol - NEURO Hx Neuro Disorders: Yes Hx Neuropathy: Yes Hx Weakness: Yes Comment:: ataxia - GI Hx GI Disorders: Yes Hx Reflux: Yes Hx Wt Loss/Wt Gain: Yes (weight loss of 30lbs in last year) Hx of Polyps: Yes - Hx Genitourinary Disorders: Yes Hx Prostate Problems: Yes - ENDOCRINE Hx Endocrine Disorders: Yes Hx Diabetes: Yes - MUSCULOSKELETAL Hx Musculoskeletal Disorders: No - PSYCH Hx Psych Problems: No - HEMATOLOGY/ONCOLOGY Hx Hematology/Oncology Disorders: Yes Hx Anemia: Yes Hx Cancer: Yes (MDS) Hx Chemotherapy: Yes Family Medical History Any Significant Family History?: Yes Hx Cancer: Brother/Sister Hx Dementia: Mother Hx Diabetes: Brother/Sister Hx Heart Disease: Brother/Sister Physical Exam - General General Appearance: Alert, Oriented x3, Cooperative, Mild distress - Head Head exam: Normal inspection - Eye Eye exam: Normal appearance, PERRL, EOMI Pupils: Normal accommodation - ENT ENT exam: Normal exam, Mucous membranes moist, Normal external ear exam, Normal orophraynx Ear exam: Normal external inspection. negative: External canal tenderness Nasal Exam: Normal inspection. negative: Discharge, Sinus tenderness Mouth exam: Normal external inspection, Tongue normal Teeth exam: Normal inspection. negative: Dental caries Throat exam: Normal inspection. negative: Tonsillar erythema, Tonsillar exudate - Neck Neck exam: Normal inspection, Full ROM. negative: Tenderness - Respiratory Respiratory exam: Normal lung sounds bilaterally. negative: Respiratory distress - Cardiovascular Cardiovascular Exam: Regular rate, Normal rhythm, Normal heart sounds - GI/Abdominal GI/Abdominal exam: Soft, Hypoactive bowel sounds, Tenderness - Rectal Rectal exam: Deferred - exam: Deferred - Extremities Extremities exam: Normal inspection, Full ROM, Normal capillary refill. negative: Tenderness - Back Back exam: Reports: Normal inspection, Full ROM. Denies: Muscle spasm, Rash noted, Tenderness - Neurological Neurological exam: Alert, CN II-XII intact, Normal gait, Oriented X3 - Psychiatric Psychiatric exam: Normal affect, Normal mood - Skin Skin exam: Dry, Intact, Normal color, Warm Course Vital Signs 05/31/18 12:10 Temperature 98.2 F Pulse Rate 72 Respiratory 20 Rate Blood Pressure 114/65 Pulse Ox 100 - Reevaluation(s) Reevaluation #1: 05/31/18 17:58 pt had moderate results w a soap suds enema and a molasses enema Medical Decision Making - Lab Data Result diagrams: 05/31/18 13:00 05/31/18 13:00 Lab Results 05/31/18 Range/Units 13:00 WBC 6.7 (4.2-12.2) K/uL RBC 2.23 L (4.40-5.70) M/uL Hgb 8.0 L (14.0-18.0) gm/dl Hct 24.3 L (42.0-52.0) % MCV 109.0 H (81-97) fl MCH 35.8 H (27-33) pg MCHC 32.9 (32-36) g/dl RDW 18.5 H (11.5-14.5) % Plt Count 176 (130-400) K/uL MPV 10.3 (7.4-10.4) fl Gran % 75.0 (47-80) % Lymphocytes % 15.6 L (16-45) % Monocytes % 7.4 (0-9) % Eosinophils % 1.5 (0-6) % Basophils % 0.5 (0-6) % Disposition Disposition: Admit Clinical Impression: Weakness Constipation Qualifiers: Constipation type: drug induced constipation Qualified Code(s): K59.03 - Drug induced constipation Anemia Qualifiers: Anemia type: other cause Other causes of anemia: chronic disease, neoplastic Qualified Code(s): D63.0 - Anemia in neoplastic disease Disposition: Still a Patient at [facility] Decision to Admit: Admit from ER Decision to Admit Date: 05/31/18 Decision to Admit Time: 18:06 Forms: Patient Portal Access Quality - Quality Measures Quality Measures: N/A - Blood Pressure Screening Does Patient Have Any of the Following: No Blood Pressure Classification: Normal BP Reading Systolic Measurement: 114 Diastolic Measurement: 65 Screening for High Blood Pressure: < Normal BP, F/U Not Required > [G8783]
[2018-05-31 13:21] LABS: BLOOD UREA NITROGEN 17 mg/dL (8-23)
[2018-05-31 13:22] LABS: CREATININE 1.1 mg/dL (0.7-1.2); EST GLOMERULAR FILTRATION RATE > 60 mL/min; TOTAL PROTEIN 7.2 g/dL (6.6-8.7)
[2018-05-31 13:24] LABS: GLUCOSE,RANDOM 138 mg/dL (74-109)
[2018-05-31 13:27] LABS: ALKALINE PHOSPHATASE 109 U/L (40-129); ALT/SGPT 21 U/L (<41); AST/SGOT 16 U/L (10.0-50.0); LIPASE 14 U/L (13-60)
[2018-05-31 13:28] LABS: BILIRUBIN,DIRECT < 0.2 mg/dL (0-0.3)
[2018-05-31] MEDS ORDERED: MORPHINE SULFATE 10 MG/ML VIAL IVP ONE (15:53)
[2018-05-31] MEDS ORDERED: ONDANSETRON HCL IV 4 MG/2 ML VIAL IVP ONE ×2 (15:53→22:52)
[2018-05-31] MEDS ORDERED: LORATADINE 10 MG TABLET PO SCH (18:15)
[2018-05-31] MEDS ORDERED: Non-Formulary MISC (Finasteride [Finasteride] 5 MG) PO SCH (18:15)
[2018-05-31] MEDS ORDERED: ASPIRIN 81 MG CHEWABLE TABLET PO SCH (18:15)
[2018-05-31] MEDS ORDERED: ACETAMINOPHEN 500 MG TABLET PO PRN (20:05)
[2018-05-31] MEDS ORDERED: MAGNESIUM CITRATE 296 ML BTL PO ONE (20:05)
[2018-05-31] MEDS ORDERED: SIMVASTATIN 20 MG TABLET PO SCH (22:00)
[2018-05-31] MEDS ORDERED: METFORMIN 500 MG TABLET PO SCH (22:00)
[2018-05-31] MEDS: 0.9 % SODIUM CHLORIDE 1000ML 1,000 ML IV SCH (22:43)
[2018-06-01] MEDS ORDERED: PANTOPRAZOLE SODIUM 40 MG TABLET PO SCH (07:00)
--- NOTE | 2018-06-01 07:33 | CT SCAN REPORT ---
EXAM: NONCONTRAST CT OF THE ABDOMEN AND PELVIS HISTORY: CONSTIPATION WITH ABDOMINAL PAIN. PATIENT REPORTS RECENT CHEMOTHERAPY FOR MYELODYSPLASTIC SYNDROME. TECHNIQUE: Noncontrast CT of the abdomen and pelvis was obtained. Comparison: CT of the abdomen and pelvis 05/11/17. FINDINGS: Asymmetric elevation of the left hemidiaphragm. Mild chronic fibrotic changes in both lung bases. Unremarkable noncontrast CT appearance of the liver, spleen, adrenal glands and pancreas. The gallbladder appears absent. Mild prominence of the intra and extrahepatic biliary ducts although appearing decreased from 2017 CT comparison. No hydronephrosis. Stable bilateral renal cortical cysts. Tiny 2 mm calculus in the lower right kidney. Moderate to large volume of stool extending from the cecum to the rectum, with liquid stool in the regions of the cecum and ascending colon. The stomach and small bowel are nondilated. No focal colonic inflammatory changes. No suspicious lymphadenopathy detected in the abdomen or pelvis. Calcifications of the aortoiliac arterial access without aneurysmal dilatation. Mild urinary bladder distention. Scattered thoracolumbar spine degenerative changes. Stable sclerotic focus within the superior L3 vertebral body. No evidence of focal bone lesions detected. Dystrophic calcifications in the gluteal soft tissues bilaterally. IMPRESSION: 1. MODERATE TO LARGE VOLUME OF STOOL THROUGHOUT THE COLON AND RECTUM COMPATIBLE WITH CONSTIPATION. 2. STABLE BILATERAL RENAL CORTICAL CYSTS. JOB NUMBER: [id number] [facility]
[2018-06-01] MEDS ORDERED: ONDANSETRON 4 MG ODT TABLET SL PRN (08:52)
[2018-06-01] MEDS: 0.9 % SODIUM CHLORIDE 1000ML 1,000 ML IV SCH (09:00)
[2018-06-01] MEDS ORDERED: MAGNESIUM CITRATE 296 ML BTL PO ONE (09:16)
--- NOTE | 2018-06-01 09:25 | Discharge Note ---
VTE H&P Assessment - Risk for VTE Risk for VTE: No Risk Level: Very Low Risk Assessment Date: 05/31/18 Risk Assessment Time: 19:00 VTE Orders Placed or Will Be Placed: No VTE Reason for No Prophylaxis: Not Indicated (obseervation patient) Discharge Medications - Discharge Medications Prescriptions: Polyethylene Glycol 3350 [Miralax] 17 gm PO BID #1 bottle Home Medications: Ambulatory Orders Aspirin 81 mg PO QD tab.chew 05/05/17 [Last Taken 07/21/17] Finasteride 5 mg PO QD tab 05/05/17 [Last Taken 07/21/17] Loratadine 10 mg PO QD tab 05/05/17 [Last Taken 07/21/17] Metformin HCl 500 mg PO BID tab 05/05/17 [Last Taken 07/21/17] Omeprazole [Prilosec] 20 mg PO QD cap 05/05/17 [Last Taken 07/21/17] Pravastatin Sodium 40 mg PO QD tab 05/05/17 [Last Taken 07/21/17] Acetaminophen [Tylenol 500Mg Tab] 1,000 mg PO Q6H PRN tablet 06/01/18 [Last Taken Unknown] Aspirin Chewable 81 mg PO DAILY tab.chew 06/01/18 [Last Taken Unknown] Polyethylene Glycol 3350 [Miralax] 17 gm PO BID #1 bottle 06/01/18 [Last Taken Unknown] Simvastatin [Zocor] 20 mg PO QHS tablet 06/01/18 [Last Taken Unknown] Discharge Note - Date Date of Discharge Note: 06/01/18 Disposition: Home, Self-Care Condition: (1) Good Additional Instructions: follow up with oncologist this week follow up with Dr Byrd in one week increase fluids eat a high fiber diet Use miralox 17 gm twice a day tylenol for pain 500 mg to 1000 mg three times a day Forms: Patient Portal Access Diet at Discharge: Other (high fiber diet)
[2018-06-01] MEDS ORDERED: ASPIRIN 81 MG CHEWABLE TABLET PO SCH (10:00)
[2018-06-01] MEDS ORDERED: DEFERASIROX 1080 MG PO SCH (10:00)
[2018-06-01] MEDS ORDERED: POLYETHYLENE GLY 17 GM PACKET PO SCH (10:00)
[2018-06-01] MEDS ORDERED: LORATADINE 10 MG TABLET PO SCH (10:00)
--- NOTE | 2018-06-01 11:50 | Discharge Summary ---
DATE: DISCHARGE DIAGNOSES: 1. Constipation. 2. Abdominal pain, right upper quadrant, secondary to liver pain from his MDS. 3. Myelodysplastic syndrome. 4. Diabetes mellitus. 5. Benign prostatic hyperplasia. 6. Hypercholesterolemia. 7. Gastroesophageal reflux disease. 8. Anemia, chronic. ATTENDING PHYSICIAN: Raji Vo DO REASON FOR HOSPITALIZATION: Constipation. The patient started a medication called Jadenu by his oncologist and he developed constipation. Came into the ER for evaluation. He was given 2 or 3 enemas and citrate of mag and Dulcolax with no relief. He was admitted for observation to help him through his constipation. He was given IV fluids through the night, and this morning he ate breakfast. His belly is soft. He is less tender. Rectal exam by me at the bedside showing no impaction, soft brown stool. I feel at this point he is able to go home with his follow through at home. We will give him another dose of citrate of mag, one bottle, and have him use MiraLax twice a day, 17 g. SIGNIFICANT FINDINGS: CT scan of the abdomen and pelvis noncontrast showed ihhnpbbq-[id number] volume stool throughout the colon, rectum compatible with constipation. Stable bilateral renal cortical cysts. Otherwise no acute changes. WBC 6700, hemoglobin 8.0, potassium 4.1, sodium 139, BUN 17, creatinine 1.1. THERAPY PROVIDED: He was given IV fluids through the night, normal saline. Another dose of citrate of mag this morning and one last night about 10 p.m. or 11 p.m. HOSPITAL COURSE: Unremarkable. The patient is feeling better and would like to go home. CONDITION ON DISCHARGE: Improved. DISCHARGE INSTRUCTIONS: Follow up with his oncologist this week. Follow up with his family doctor this week. Increase the fluids. High-fiber diet. Use MiraLax 17 g twice a day. If problems develop with vomiting, he should come back for reevaluation or contact his oncologist or family doctor. CC: JEROME DICKSON D.O. Dr. Anselmo CRAWFORD
--- NOTE | 2018-06-01 16:20 | History and Physical Report ---
DATE OF ADMISSION: Observation patient on 05/31/2018. I had seen the patient in the emergency depart ment to do my H&P prior to him going to the floor. CHIEF COMPLAINT: Constipation. Last small bowel movement was 3-4 days ago, last full bowel movement was 10 days ago. The patient is a cancer patient undergoing chemotherapy. Has tried many rwui-bzh-jqkfzoy medications for constipation. Milk of magnesia, MiraLax, laxatives that are lrhj-bsm-agxjedd and no results. He is complaining of crampy abdominal pain mostly in the right upper quadrant but he says he has chronic right upper quadrant pain too. 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 PAST SURGICAL HISTORY: Cholecystectomy, appendectomy, colonoscopy. MEDICATIONS: 1. Metformin 500 mg b.i.d. 2. Loratadine 10 mg daily. 3. Finasteride 5 mg daily. 4. Aspirin 81 mg daily. 5. Pravastatin 40 mg daily. 6. Omeprazole 20 mg daily. 7. Jadenu 1080 mg daily. ALLERGIES: No known drug allergies. FAMILY/PSYCHOSOCIAL HISTORY: Brother and sister had cancer. Mother had dementia. Brother and sister had diabetes and heart disease. He is a former cigarette smoker. No alcohol or drug use. REVIEW OF SYSTEMS: HEENT: No upper respiratory infection symptoms, cough, cold, or congestion. Cardiovascular: No chest pain, palpitations, or arrhythmia. Respiratory: No cough, cold, or congestion. Gastrointestinal: There is pain in the right upper quadrant. Soft abdomen. Tender to touch in the right upper quadrant. No rebound or rigidity. Genitourinary: No dysuria, hematuria, frequency, or burning on urination. Musculoskeletal: No joint or bone abnormalities. Neurological: No CVA, paralysis, or paresthesias. He has neuropathy of the legs. Endocrine: He has diabetes mellitus and hypothyroidism. Integument: No rash, ulcers, change in moles, or yellow skin. PHYSICAL EXAMINATION: VITALS: Height 5 feet 8 inches, weight 170 pounds. Temperature 98.2, pulse 72, blood pressure 114/65, respiratory rate 20, pulse ox 100% on room air. HEENT: Pupils are equal, round, and reactive to light and accommodation. Extraocular muscles are intact. Throat is clear. Nose is clear. Tympanic membranes are michaud. NECK: Supple. No jugular venous distention. No hepatojugular reflux. No carotid bruits. Thyroid is smooth. CARDIOVASCULAR: Regular rate and rhythm without murmurs, clicks, rubs, or gallops. RESPIRATORY: Clear to auscultation and percussion. ABDOMEN: Soft. There is tenderness in the right upper quadrant. No rebound or rigidity. No masses palpated. Bowel sounds are present. EXTREMITIES: No pitting edema. No cyanosis, no clubbing. Full range of motion. Peripheral pulses are good. BREASTS: Normal male breasts. RECTAL: Exam deferred. GENITALIA: Normal male genitalia. NEUROLOGIC: Cranial nerves II-XII intact. No gross defects. Sensation normal, strength normal. Deep tendon reflexes equal bilaterally with Babinski negative. MENTAL STATUS: Alert and oriented x3. IMPRESSION: 1. Constipation. 2. Myelodysplastic syndrome. 3. History of silent coronary artery disease. 4. Hypercholesterolemia. 5. Gastroesophageal reflux disease. 6. Diabetes mellitus. PLAN: IV fluids and MiraLax and milk of magnesia, possibly enemas. MTDD
== END 2018-06-01 10:25 | disposition home or self-care (01) ==
LOC: ER 11:59 → MEDSURG 19:35
PROVIDERS: ADMIT Emergency Medicine; ATTEND Emergency Medicine
DX: K59.03 Drug induced constipation (principal); D63.0 Anemia in neoplastic disease; R53.1 Weakness; R10.84 Generalized abdominal pain; E11.9 Type 2 diabetes mellitus without complications; D46.9 Myelodysplastic syndrome, unspecified; R27.0 Ataxia, unspecified; K21.9 Gastro-esophageal reflux disease without esophagitis; Z87.891 Personal history of nicotine dependence; I25.10 Atherosclerotic heart disease of native coronary artery without angina pectoris; I25.2 Old myocardial infarction; E03.9 Hypothyroidism, unspecified
CPT/HCPCS: 83690; 85025; 80076; 80048; 74176; 90686; G0378 ×2; J2405; J2270; 96374; 96375; 99217; 99220; 99285

== ENCOUNTER 2018-09-07 11:49 | Observation (INO) | payer MEDICARE, OTHER ==
--- NOTE | 2018-09-07 12:18 | Emergency Department Record ---
History of Present Illness - General Chief Complaint: Chest Pain Stated Complaint: KENDRA/CP/LOW HGB Time Seen by Provider: 09/07/18 12:10 Source: Patient, RN notes reviewed Mode of Arrival: Ambulatory - History of Present Illness Initial Comments: patient was getting an infusion of aresnest(weekly) and his hg 7.4 today and his last transfusion was on 08/18/2017. Patient had some dyspnea and chest pain and some bilateral chest pain and he is only SOB with walking. Currently no chest pain or arm radiation. His chest pain lasted 5 minutes and it went away when when he sat down to rest. Patient has MDS mylodysplastic syndrome(1.5 years ago). Stage one. 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 Patient has had four rounds of chemotherapy(last chemo jun 2018). oncologist is Dr Baldev Morton oncologist, [phone] Onset/Timin -: Days(s) Onset: During exertion Pain Location: Other Pain Radiation: None Severity: Mild Severity scale (1-10): 5 Quality: Aching Consistency: Intermittent Improves With: Nothing Worsens With: Nothing Treatments Prior to Arrival: None - Related Data Previous Rx's Medication Instructions Recorded Acetaminophen [Tylenol 500Mg Tab] 1,000 mg PO Q6H PRN tablet 06/01/18 Aspirin Chewable 81 mg PO DAILY tab.chew 06/01/18 Polyethylene Glycol 3350 [Miralax] 17 gm PO BID #1 bottle 06/01/18 Simvastatin [Zocor] 20 mg PO QHS tablet 06/01/18 Allergies Allergy/AdvReac Type Severity Reaction Status Date / Time No Known Drug Intolerances Allergy Unknown PT UNSURE Unverified 07/21/17 11:30 OF REACTION Allergies: Allergy Unknown PT UNSURE Uncoded 07/21/17 11:30 OF REACTION Travel Screening - Travel/Exposure Within Last 30 Days Have you traveled within the last 30 days?: No Review of Systems Reviewed: No additional complaints except as noted below Constitutional: Reports: As per HPI. Denies: Chills, Fever, Malaise, Night sweats, Weakness, Weight change Eyes: Reports: As per HPI. Denies: Eye discharge, Eye pain, Photophobia, Vision change ENT: Reports: As per HPI. Denies: Congestion, Dental pain, Ear pain, Epistaxis , Hearing loss, Throat pain Respiratory: Reports: As per HPI, Dyspnea. Denies: Cough, Hemoptysis, Stridor, Wheezes Cardiovascular: Reports: As per HPI, Chest pain, Dyspnea on exertion. Denies: Arrhythmia, Edema, Murmurs, Orthopnea, Palpitations, Paroxysmal nocturnal dyspnea, Rheumatic Fever, Syncope Endocrine: Reports: As per HPI. Denies: Fatigue, Heat or cold intolerance, Polydipsia, Polyuria Gastrointestinal: Reports: As per HPI. Denies: Abdominal pain, Constipation, Diarrhea, Hematemesis, Hematochezia, Melena, Nausea, Vomiting Genitourinary: Reports: As per HPI. Denies: Dysuria, Frequency, Hematuria, Incontinence, Retention, Testicular pain, Testicular mass, Urgency Musculoskeletal: Reports: As per HPI. Denies: Arthralgia, Back pain, Gout, Joint swelling, Myalgia, Neck pain Skin: Reports: As per HPI. Denies: Bruising, Change in color, Change in hair/ nails, Lesions, Pruritus, Rash Neurological: Reports: As per HPI. Denies: Abnormal gait, Confusion, Headache, Numbness, Paresthesias, Seizure, Tingling, Tremors, Vertigo, Weakness Psychiatric: Reports: As per HPI. Denies: Anxiety, Auditory hallucinations, Depression, Homicidal thoughts, Suicidal thoughts, Visual hallucinations Hematological/Lymphatic: Reports: As per HPI. Denies: Anemia, Blood Clots, Easy bleeding, Easy bruising, Swollen glands Past Medical History - SOCIAL HISTORY Smoking Status: Former smoker - RESPIRATORY Hx Respiratory Disorders: No - CARDIOVASCULAR Hx Cardio Disorders: Yes Comment:: high cholesterol - NEURO Hx Neuro Disorders: Yes Hx Neuropathy: Yes Hx Weakness: Yes Comment:: ataxia - GI Hx GI Disorders: Yes Hx Reflux: Yes Hx Wt Loss/Wt Gain: Yes (weight loss of 30lbs in last year) Hx of Polyps: Yes - Hx Genitourinary Disorders: Yes Hx Prostate Problems: Yes - ENDOCRINE Hx Endocrine Disorders: Yes Hx Diabetes: Yes - MUSCULOSKELETAL Hx Musculoskeletal Disorders: No - PSYCH Hx Psych Problems: No - HEMATOLOGY/ONCOLOGY Hx Hematology/Oncology Disorders: Yes Hx Anemia: Yes Hx Cancer: Yes (MDS) Hx Chemotherapy: Yes Family Medical History Any Significant Family History?: Yes Hx Cancer: Brother/Sister Hx Dementia: Mother Hx Diabetes: Brother/Sister Hx Heart Disease: Brother/Sister Physical Exam - General General Appearance: Alert, Oriented x3, Cooperative, No acute distress - Head Head exam: Normal inspection - Eye Eye exam: Normal appearance, PERRL Pupils: Normal accommodation - ENT ENT exam: Normal exam, Mucous membranes moist, Normal external ear exam, Normal orophraynx, TM's normal bilaterally Ear exam: Normal external inspection. negative: External canal tenderness Nasal Exam: Normal inspection. negative: Discharge, Sinus tenderness Mouth exam: Normal external inspection, Tongue normal Teeth exam: Normal inspection. negative: Dental caries Throat exam: Normal inspection. negative: Tonsillar erythema, Tonsillar exudate - Neck Neck exam: Normal inspection, Full ROM. negative: Tenderness - Respiratory Respiratory exam: Normal lung sounds bilaterally. negative: Respiratory distress - Cardiovascular Cardiovascular Exam: Regular rate, Normal rhythm, Normal heart sounds - GI/Abdominal GI/Abdominal exam: Soft, Normal bowel sounds. negative: Tenderness - Rectal Rectal exam: Deferred - exam: Deferred - Extremities Extremities exam: Normal inspection, Full ROM, Normal capillary refill. negative: Tenderness - Back Back exam: Reports: Normal inspection, Full ROM. Denies: Muscle spasm, Rash noted, Tenderness - Neurological Neurological exam: Alert, Normal gait, Oriented X3, Reflexes normal - Psychiatric Psychiatric exam: Normal affect, Normal mood - Skin Skin exam: Dry, Intact, Normal color, Warm Course Vital Signs 09/07/18 12:05 Temperature 97.5 F L Pulse Rate 103 H Respiratory 20 Rate Blood Pressure 162/75 Pulse Ox 98 - Reevaluation(s) Reevaluation #1: discussed case with Vivian Lynn and will admit for blood transfusion and serial cardiac enzymes. 09/07/18 13:04 Reevaluation #2: discussed with Dr. 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
[2018-09-07 12:39] LABS: BLOOD UREA NITROGEN 22 mg/dL (8-23); CREATININE 0.6 mg/dL (0.7-1.2); EST GLOMERULAR FILTRATION RATE > 60 mL/min
[2018-09-07 12:42] LABS: GLUCOSE,RANDOM 138 mg/dL (74-109)
[2018-09-07 14:50] LABS: ABO GROUP AB; ANTIBODY SCREEN NEGATIVE (NEGATIVE); RH TYPE POSITIVE
[2018-09-07] MEDS ORDERED: 0.9 % SODIUM CHLORIDE 1000ML 1,000 ML IV PRN (14:52)
[2018-09-07] MEDS ORDERED: ACETAMINOPHEN 325 MG TAB PO PRN (14:52)
[2018-09-07 15:13] LABS: IMMED. SPIN CROSSMATCH COMPATIBLE
[2018-09-07] MEDS ORDERED: SIMVASTATIN 20 MG TABLET PO SCH (17:00)
[2018-09-07] MEDS ORDERED: ASPIRIN 81 MG TABEC PO SCH (17:00)
[2018-09-07] MEDS ORDERED: PANTOPRAZOLE SODIUM 40 MG TABLET PO SCH (17:00)
[2018-09-07] MEDS ORDERED: Non-Formulary MISC (Finasteride [Finasteride] 5 MG) PO SCH (17:00)
--- NOTE | 2018-09-07 17:31 | History & Physical ---
History of Present Illness - Date of Service Date of Service for History & Physical: 09/08/18 - History of Present Illness Admitting Diagnosis: anemia. MDS. cerebellar ataxia. neuropathy History of Present Illness: 77 year old male patient presents to ED from outpatient infusion clinic for dyspnea and chest pain with exertion. Patient is currently getting weekly Aranesp infusions due to Myelodysplastic syndrome. Patient was due to have an Aranesp and blood transfusion today, due to a hemoglobin of 7.4. However, due to the increased shortness of breath and chest pain, patient was instructed to go to ED for further evaluation. Patient denied symptoms of chest pain, arm pain, or shortness of breath at rest. Patient's other medical history includes ataxia, neuropathy, diabetes, and myelodysplastic syndrome, stage one. Patient has undergone four rounds of chemotherapy and is currently getting the Aranesp infusions. PCP: Dr. Byrd Oncologist: Dr. Baldev Pop, [facility] ([phone]) ED Course: Vitals: Temp 97.5F, HR 103, RR 20, BP 162/75, Pulse ox 98% EKG: no acute changes from 11/2017, RBBB Trop negative Chest x-ray: no acute process 09/07/18: Patient A&O x 4, resting comfortably in bed. Patient asymptomatic at this time of chest pain or shortness of breath. Will plan to transfuse 1 unit PRBC and recheck CBC in the morning. Will monitor serial cardiac enzymes and continue to monitor on back panel padder. Travel Screening - Travel/Exposure Within Last 30 Days Have you traveled within the last 30 days?: No - Travel/Exposure Within Last Year Have you traveled outside the [place] in the last year?: No - Additonal Travel Details Have you been exposed to anyone with a communicable illness?: No - Travel Symptoms Symptom Screening: None Review of Systems Reviewed: No additional complaints except as noted below Constitutional: Reports: As per HPI. Denies: Chills, Fever, Malaise, Night sweats, Weakness, Weight change Eyes: Reports: As per HPI. Denies: Eye discharge, Eye pain, Photophobia, Vision change ENT: Reports: As per HPI. Denies: Congestion, Dental pain, Ear pain, Epistaxis , Hearing loss, Throat pain Respiratory: Reports: As per HPI, Dyspnea. Denies: Cough, Hemoptysis, Stridor, Wheezes Cardiovascular: Reports: As per HPI, Chest pain, Dyspnea on exertion. Denies: Arrhythmia, Edema, Murmurs, Orthopnea, Palpitations, Paroxysmal nocturnal dyspnea, Rheumatic Fever, Syncope Endocrine: Reports: As per HPI. Denies: Fatigue, Heat or cold intolerance, Polydipsia, Polyuria Gastrointestinal: Reports: As per HPI. Denies: Abdominal pain, Constipation, Diarrhea, Hematemesis, Hematochezia, Melena, Nausea, Vomiting Genitourinary: Reports: As per HPI. Denies: Dysuria, Frequency, Hematuria, Incontinence, Retention, Testicular pain, Testicular mass, Urgency Musculoskeletal: Reports: As per HPI. Denies: Arthralgia, Back pain, Gout, Joint swelling, Myalgia, Neck pain Skin: Reports: As per HPI. Denies: Bruising, Change in color, Change in hair/ nails, Lesions, Pruritus, Rash Neurological: Reports: As per HPI. Denies: Abnormal gait, Confusion, Headache, Numbness, Paresthesias, Seizure, Tingling, Tremors, Vertigo, Weakness Psychiatric: Reports: As per HPI. Denies: Anxiety, Auditory hallucinations, Depression, Homicidal thoughts, Suicidal thoughts, Visual hallucinations Hematological/Lymphatic: Reports: As per HPI. Denies: Anemia, Blood Clots, Easy bleeding, Easy bruising, Swollen glands Past Medical History - SOCIAL HISTORY Smoking Status: Former smoker Alcohol Use: None Drug Use: None - RESPIRATORY Hx Respiratory Disorders: Yes Hx Pneumonia: Yes - CARDIOVASCULAR Hx Cardio Disorders: Yes Comment:: high cholesterol - NEURO Hx Neuro Disorders: Yes Hx Dizziness: Yes Hx Neuropathy: Yes Hx Speech Problem: Yes Hx Weakness: Yes Comment:: ataxia - GI Hx GI Disorders: Yes Hx Reflux: Yes Hx Wt Loss/Wt Gain: Yes (weight loss of 30lbs in last year) Hx of Polyps: Yes - Hx Genitourinary Disorders: Yes Hx Prostate Problems: Yes - ENDOCRINE Hx Endocrine Disorders: Yes Hx Diabetes: Yes - MUSCULOSKELETAL Hx Musculoskeletal Disorders: No - PSYCH Hx Psych Problems: No - HEMATOLOGY/ONCOLOGY Hx Hematology/Oncology Disorders: Yes Hx Anemia: Yes Hx Blood Disorders: Yes Hx Cancer: Yes (MDS) Hx Chemotherapy: Yes Hx Blood Transfusions: Yes Family Medical History Any Significant Family History?: Yes Hx Cancer: Brother/Sister Hx Dementia: Mother Hx Diabetes: Brother/Sister Hx Heart Disease: Brother/Sister H&P Meds/Allergies - Allergies Allergies: Allergies Allergy/AdvReac Type Severity Reaction Status Date / Time No Known Drug Intolerances Allergy Unknown PT UNSURE Unverified 07/21/17 11:30 OF REACTION Allergies: Allergy Unknown PT UNSURE Uncoded 07/21/17 11:30 OF REACTION - Home Medications Previous Rx's Medication Instructions Recorded Acetaminophen [Tylenol 500Mg Tab] 1,000 mg PO Q6H PRN tablet 06/01/18 Aspirin Chewable 81 mg PO DAILY tab.chew 06/01/18 Polyethylene Glycol 3350 [Miralax] 17 gm PO BID #1 bottle 06/01/18 Simvastatin [Zocor] 20 mg PO QHS tablet 06/01/18 - Active Medications Active Medications: Current Medications Acetaminophen (Tylenol 325mg) 650 mg PO Q6H PRN PRN Reason: PAIN - MILD(1-4)/FEVER Aspirin (Ecotrin (Ec)) 81 mg PO QPM [facility] Last Admin: 09/07/18 17:27 Dose: 81 mg Sodium Chloride () 1,000 mls @ 15 mls/hr IV .Q24H PRN PRN Reason: LARGE VOLUME IV Metformin HCl (Glucophage Ir) 500 mg PO Q48H [facility] Non-Formulary Medication (Finasteride [Finasteride]) 5 mg PO QPM [facility] Last Admin: 09/07/18 17:28 Dose: Not Given Pantoprazole Sodium (Protonix) 40 mg PO QPM [facility] Last Admin: 09/07/18 17:27 Dose: 40 mg Simvastatin (Zocor) 20 mg PO QPM [facility] Last Admin: 09/07/18 17:27 Dose: 20 mg Physical Exam - Vital Signs Vital Signs: Vital Signs - Last 24 Hrs Temp Pulse Pulse Pulse Resp BP BP 09/07/18 17:08 98.6 F 87 16 153/90 09/07/18 16:02 14 09/07/18 14:39 100 H 14 152/50 09/07/18 14:29 97.9 F 20 154/69 09/07/18 13:30 77 09/07/18 12:05 97.5 F L 103 H 20 162/75 BP Pulse Ox 09/07/18 17:08 97 09/07/18 16:02 09/07/18 14:39 98 09/07/18 14:29 96 09/07/18 13:30 134/68 09/07/18 12:05 98 - General General Appearance: Alert, Oriented x3, Cooperative, No acute distress - Head Head exam: Normal inspection - Eye Eye exam: Normal appearance, PERRL Pupils: Normal accommodation - ENT ENT exam: Normal exam, Mucous membranes moist, Normal external ear exam, Normal orophraynx Ear exam: Normal external inspection. negative: External canal tenderness Nasal Exam: Normal inspection. negative: Discharge, Sinus tenderness Mouth exam: Normal external inspection, Tongue normal Teeth exam: Normal inspection. negative: Dental caries Throat exam: Normal inspection. negative: Tonsillar erythema, Tonsillar exudate - Neck Neck exam: Normal inspection, Full ROM. negative: Tenderness - Respiratory Respiratory exam: Normal lung sounds bilaterally. negative: Respiratory distress - Cardiovascular Cardiovascular Exam: Regular rate, Normal rhythm, Normal heart sounds Peripheral Pulses: 2+: Radial (R), Radial (L), Dorsalis Pedis (R), Dorsalis Pedis (L) - GI/Abdominal GI/Abdominal exam: Soft, Normal bowel sounds. negative: Tenderness - Rectal Rectal exam: Deferred - exam: Deferred - Extremities Extremities exam: Normal inspection, Full ROM, Normal capillary refill. negative: Tenderness - Back Back exam: Reports: Normal inspection. Denies: Muscle spasm, Rash noted, Tenderness - Neurological Neurological exam: Alert, Normal gait, Oriented X3 - Psychiatric Psychiatric exam: Normal affect, Normal mood - Skin Skin exam: Intact, Normal color, Warm Results - Labs Result Diagrams: 09/08/18 06:45 09/07/18 12:00 Labs Last 24 Hours: Laboratory Results - last 24 hr 09/07/18 09/07/18 09/07/18 12:00 12:10 13:14 WBC Cancelled Corrected WBC Cancelled RBC Cancelled Hgb Cancelled Hct Cancelled MCV Cancelled MCH Cancelled MCHC Cancelled RDW Cancelled Plt Count Cancelled MPV Cancelled Gran % Cancelled Lymphocytes % Cancelled Monocytes % Cancelled Eosinophils % Cancelled Basophils % Cancelled Sodium 144 Potassium 4.1 Chloride 105 Carbon Dioxide 26.0 Anion Gap 13.0 BUN 22 Creatinine 0.6 L Estimated GFR > 60 POC Glucose Random Glucose 138 H Calcium 9.1 Troponin T < 0.010 ABO Group Ab Rh Factor Positive Antibody Screen Negative Crossmatch 09/07/18 09/07/18 14:15 17:21 WBC Corrected WBC RBC Hgb Hct MCV MCH MCHC RDW Plt Count MPV Gran % Lymphocytes % Monocytes % Eosinophils % Basophils % Sodium Potassium Chloride Carbon Dioxide Anion Gap BUN Creatinine Estimated GFR POC Glucose 152 H Random Glucose Calcium Troponin T ABO Group Rh Factor Antibody Screen Crossmatch Yes VTE H&P Assessment - Risk for VTE Risk for VTE: No Risk Level: Moderate Risk Assessment Date: 09/07/18 Risk Assessment Time: 17:00 VTE Orders Placed or Will Be Placed: No VTE Reason for No Prophylaxis: Contraindicated Plan - Detailed Diagnosis and Plan (1) Anemia Current Visit: Yes Status: Acute Qualifiers: Anemia type: bone marrow failure Bone marrow failure anemia type: myelophthisis Qualified Code(s): D61.82 - Myelophthisis Base Code: D64.9 - ANEMIA, UNSPECIFIED Comment: 09/07/18: -Hgb outpatient 7.4 -Case discussed with oncologist, wished patient to receive 1 U PRBC and recheck hgb -Patient reports dizziness, shortness of breath, and chest pain with exertion (2) MDS (myelodysplastic syndrome) Current Visit: Yes Status: Acute Base Code: D46.9 - MYELODYSPLASTIC SYNDROME , UNSPECIFIED Comment: 09/07/18: -History of Myelodysplastic Syndrom for 1.5 years -Completed 4 rounds of chemotherapy -Currently receiving Aranesp infusions weekly and blood transfusions [id number] -Managed by Dr. Pop (Oncologist) (3) Chest pain Current Visit: Yes Status: Acute Base Code: R07.9 - CHEST PAIN, UNSPECIFIED Comment: 09/07/18: -Patient reported chest pain and shortness of breath with exertion on admission , asymptomatic with no activity -Patient reports similar symptoms in the past with low hemoglobin -Currently hgb 7.4 -Initial troponin negative, EKG unchanged, chest x-ray negative -Will order serial troponins -pari mutuel clerk (4) Diabetes mellitus type 2 in nonobese Current Visit: No Status: Acute Base Code: E11.9 - TYPE 2 DIABETES MELLITUS WITHOUT COMPLICATIONS Comment: 09/07/18: -Accucheck ac, hs -Continue home dose of Metformin 500mg q48h (5) Venous thromboembolism (VTE) prophylaxis not indicated Current Visit: No Status: Acute Base Code: [id number] - Comment: 09/07/18: - pt is ambulatory within room, no pharmacological or mechanical prophylaxis needed. (6) DNR (do not resuscitate) Current Visit: Yes Status: Acute Base Code: Z66 - DO NOT RESUSCITATE Comment: 09/07/18: Patient is a DNR code status
--- NOTE | 2018-09-08 07:37 | RADIOLOGY REPORT ---
EXAM: CHEST, TWO VIEWS HISTORY: DIFFICULTY BREATHING, CHEST PAIN. TECHNIQUE: Two views of the chest were obtained. Comparison: Chest radiograph 10/16/17. FINDINGS: Right sided chest port with tip near the superior vena cava. The cardiac silhouette is within normal size limits. The thoracic aorta is calcified and mildly tortuous. Patchy opacity within the left lung base, increased from prior study. No definable pleural fluid collection. No visible pneumothorax. Low inspiratory lung volumes. IMPRESSION: PATCHY LEFT LUNG BASE OPACITY, INCREASED FROM 10/16/17 MAY REPRESENT ATELECTASIS AND/OR ACUTE AIR SPACE DISEASE. JOB NUMBER: [id number] [facility]
[2018-09-08 08:12] LABS: HEMATOCRIT 22.6 % (42.0-52.0); HEMOGLOBIN 7.3 gm/dl (14.0-18.0); MEAN CELL VOLUME 104.6 fl (81-97); MEAN CORPUSCULAR HGB CONC 32.3 g/dl (32-36); MEAN PLATELET VOLUME 11.8 fl (7.4-10.4); PLATELET COUNT 124 K/uL (130-400); RED BLOOD COUNT 2.16 M/uL (4.40-5.70); RED CELL DISTRIBUTION WIDTH 24.3 % (11.5-14.5)
[2018-09-08 08:44] LABS: MEAN CORPUSCULAR HEMOGLOBIN 33.7 pg (27-33)
[2018-09-08 11:07] LABS: IMMED. SPIN CROSSMATCH COMPATIBLE
[2018-09-08 15:43] LABS: HEMATOCRIT 24.6 % (42.0-52.0)
[2018-09-08] MEDS ORDERED: 0.9 % SODIUM CHLORIDE 10ML SYR IVP ONE (16:01)
[2018-09-08] MEDS ORDERED: HEPARIN SODIUM FLUSH 100 UNITS/ML SYR 5ML IV ONE (16:01)
--- NOTE | 2018-09-08 16:10 | Discharge Summary ---
Providers Discharge Summary Date: 09/08/18 Date of admission: 09/07/18 14:13 Expected Date of Discharge: 09/08/18 Attending physician: SULEMA MORRIS Primary care physician: JEROME BYRD D.O. Physical Exam - Vital Signs Vital Signs: Vital Signs - Last 24 Hrs Temp Pulse Pulse Pulse Resp BP Pulse Ox 09/08/18 14:00 98.9 F 76 77 18 136/73 97 09/08/18 10:00 98.0 F 86 17 133/62 98 09/08/18 09:00 92 H 88 86 17 09/08/18 05:43 79 18 129/77 97 09/08/18 01:46 97.4 F L 84 18 107/61 98 09/07/18 21:16 98.5 F 88 16 127/70 96 09/07/18 21:00 92 H 16 09/07/18 17:08 98.6 F 87 16 153/90 97 - General General Appearance: Alert, Oriented x3, Cooperative, No acute distress - Head Head exam: Normal inspection - Eye Eye exam: Normal appearance, PERRL Pupils: Normal accommodation - ENT ENT exam: Normal exam, Mucous membranes moist Ear exam: Normal external inspection. negative: External canal tenderness Nasal Exam: negative: Discharge, Sinus tenderness Mouth exam: Normal external inspection Teeth exam: Normal inspection. negative: Dental caries Throat exam: Normal inspection. negative: Tonsillar erythema, Tonsillar exudate - Neck Neck exam: Normal inspection, Full ROM. negative: Tenderness - Respiratory Respiratory exam: Normal lung sounds bilaterally. negative: Respiratory distress - Cardiovascular Cardiovascular Exam: Regular rate, Normal rhythm, Normal heart sounds Peripheral Pulses: 2+: Radial (R), Radial (L), Dorsalis Pedis (R), Dorsalis Pedis (L) - GI/Abdominal GI/Abdominal exam: Soft, Normal bowel sounds. negative: Tenderness - Rectal Rectal exam: Deferred - exam: Deferred - Extremities Extremities exam: Normal inspection, Full ROM, Normal capillary refill. negative: Tenderness - Back Back exam: Reports: Normal inspection. Denies: Muscle spasm, Rash noted, Tenderness - Neurological Neurological exam: Alert, Normal gait, Oriented X3 - Psychiatric Psychiatric exam: Normal affect, Normal mood - Skin Skin exam: Intact, Pallor, Warm Hospitalization - Hospitalization Admission Diagnosis: anemia. MDS. cerebellar ataxia. neuropathy - Problem List/Discharge Diagnosis (1) Anemia Current Visit: Yes Status: Acute Discharge Diagnosis: Anemia type: bone marrow failure Bone marrow failure anemia type: myelophthisis Qualified Code(s): D61.82 - Myelophthisis Base Code: D64.9 - ANEMIA, UNSPECIFIED Comment: 09/08/18: -Initial repeat hgb 7.3. Discussed case with oncologist, Dr. Pop, who suggested a second unit of PRBC prior to dc -Hgb after second unit 8.0. Patient denies any further shortness of breath or chest pain at this time. -Patient to follow-up with Dr. Pop as scheduled (2) MDS (myelodysplastic syndrome) Current Visit: Yes Status: Acute Base Code: D46.9 - MYELODYSPLASTIC SYNDROME , UNSPECIFIED Comment: 09/08/18: -History of Myelodysplastic Syndrom for 1.5 years -Completed 4 rounds of chemotherapy -Currently receiving Aranesp infusions weekly and blood transfusions [id number] -Managed by Dr. Pop (Oncologist) (3) Chest pain Current Visit: Yes Status: Acute Base Code: R07.9 - CHEST PAIN, UNSPECIFIED Comment: 09/08/18: -Patient reported chest pain and shortness of breath with exertion on admission , asymptomatic with no activity -Patient reports similar symptoms in the past with low hemoglobin -Repeat hgb 8.0, asymptomatic at this time -Initial troponin negative, EKG unchanged, chest x-ray negative -Troponin negative x 3 -monitoring analyst (4) Diabetes mellitus type 2 in nonobese Current Visit: No Status: Acute Base Code: E11.9 - TYPE 2 DIABETES MELLITUS WITHOUT COMPLICATIONS Comment: 09/08/18: -Accucheck ac, hs -Continue home dose of Metformin 500mg q48h (5) Venous thromboembolism (VTE) prophylaxis not indicated Current Visit: No Status: Acute Base Code: [id number] - Comment: 09/08/18: - pt is ambulatory within room, no pharmacological or mechanical prophylaxis needed. (6) DNR (do not resuscitate) Current Visit: Yes Status: Acute Base Code: Z66 - DO NOT RESUSCITATE Comment: 09/08/18: Patient is a DNR code status - Hospitalization Course Disposition: Home, Self-Care Hospital Course: 77 year old male patient presents to ED from outpatient infusion clinic for dyspnea and chest pain with exertion. Patient is currently getting weekly Aranesp infusions due to Myelodysplastic syndrome. Patient was due to have an Aranesp and blood transfusion today, due to a hemoglobin of 7.4. However, due to the increased shortness of breath and chest pain, patient was instructed to go to ED for further evaluation. Patient denied symptoms of chest pain, arm pain, or shortness of breath at rest. Patient's other medical history includes ataxia, neuropathy, diabetes, and myelodysplastic syndrome, stage one. Patient has undergone four rounds of chemotherapy and is currently getting the Aranesp infusions. PCP: Dr. Byrd Oncologist: Dr. Baldev Pop, [facility] ([phone]) ED Course: Vitals: Temp 97.5F, HR 103, RR 20, BP 162/75, Pulse ox 98% EKG: no acute changes from 11/2017, RBBB Trop negative Chest x-ray: no acute process 09/07/18: Patient A&O x 4, resting comfortably in bed. Patient asymptomatic at this time of chest pain or shortness of breath. Will plan to transfuse 1 unit PRBC and recheck CBC in the morning. Will monitor serial cardiac enzymes and continue to monitor on classroom monitor. 09/08/18: Patient A&O x 4, sitting comfortably in chair. Patient's hemoglobin after 1unit PRBC was 7.3. Discussed case with oncologist,Dr. Pop, who recommended an additional unit of PRBC's at this time. Patient received 2nd transfusion, repeat hemoglobin 8.0 at this time. Patient denies any further shortness of breath or chest pain. Troponins negative x 3, classroom monitor negative for any significant events. Procedures: Imaging and X-Rays 09/07/18 12:31 CHEST 2 VIEWS [RAD] Stat Cardiology Procedures 09/07/18 12:03 EKG NOW 09/07/18 15:30 Psychiatric Cns .Continuous Abnormal Labs: Abnormal Lab Results 09/07/18 09/07/18 09/08/18 Range/Units 12:00 17:21 06:45 WBC 4.0 L (4.2-12.2) K/uL RBC 2.16 L (4.40-5.70) M/uL Hgb 7.3 L (14.0-18.0) gm/dl Hct 22.6 L (42.0-52.0) % MCV 104.6 H (81-97) fl MCH 33.7 H (27-33) pg RDW 24.3 H (11.5-14.5) % Plt Count 124 L (130-400) K/uL MPV 11.8 H (7.4-10.4) fl Monocytes 11.0 H (0-9) % Creatinine 0.6 L (0.7-1.2) mg/dL POC Glucose 152 H (70-110) mg/dL Random Glucose 138 H (74-109) mg/dL 09/08/18 09/08/18 09/08/18 Range/Units 08:15 12:02 15:42 WBC (4.2-12.2) K/uL RBC (4.40-5.70) M/uL Hgb 8.0 L (14.0-18.0) gm/dl Hct 24.6 L (42.0-52.0) % MCV (81-97) fl MCH (27-33) pg RDW (11.5-14.5) % Plt Count (130-400) K/uL MPV (7.4-10.4) fl Monocytes (0-9) % Creatinine (0.7-1.2) mg/dL POC Glucose 124 H 139 H (70-110) mg/dL Random Glucose (74-109) mg/dL Condition at Discharge: (2) Stable VTE Discharge VTE Reason For No Overlap Therapy: Not Indicated Discharge Medications - Discharge Medications Home Medications: Ambulatory Orders Aspirin 81 mg PO QD tab.chew 05/05/17 [Last Taken 07/21/17] Finasteride 5 mg PO QD tab 05/05/17 [Last Taken 07/21/17] Loratadine 10 mg PO QD tab 05/05/17 [Last Taken 07/21/17] Metformin HCl 500 mg PO BID tab 05/05/17 [Last Taken 07/21/17] Omeprazole [Prilosec] 20 mg PO QD cap 05/05/17 [Last Taken 07/21/17] Pravastatin Sodium 40 mg PO QD tab 05/05/17 [Last Taken 07/21/17] Acetaminophen [Tylenol 500Mg Tab] 1,000 mg PO Q6H PRN tablet 06/01/18 [Last Taken Unknown] Polyethylene Glycol 3350 [Miralax] 17 gm PO BID #1 bottle 06/01/18 [Last Taken Unknown] Simvastatin [Zocor] 20 mg PO QHS tablet 06/01/18 [Last Taken Unknown] Discharge Plan - Discharge Instructions Activity at Discharge: Resume Usual Activities As Tolerated Diet at Discharge: Regular Diet Additional Instructions: -Your repeat hemoglobin was 8.0 today -Follow-up with Dr. Pop Quality Measures - Quality Measures Quality Measures: Advance Directives, Documentation of Current Medications in Medical Record, Elder Maltreatment Screen and Follow-Up Plan, Screening for High Blood Pressure and F/U Documented - Current Medications Quality Measure: Measure #130: Documentation of Current Medications Documentation of Current Medications: <Current Medications Documented/Reviewed> [G8427] - Blood Pressure Screening Quality Measure: Screening for High Blood Pressure and Follow-Up Documented Does Patient Have Any of the Following: No, Active Dx of HTN Blood Pressure Classification: Hypertensive Reading Systolic Measurement: 152 Diastolic Measurement: 50 Screening for High Blood Pressure: < First Hypertensive BP, F/U Documented > [ G8950] First Hypertensive Follow-up Interventions: Referral to alternative/primary care provider. - Advance Directives Quality Measure: Measure #47: Care Plan Advance Directives Established: Yes Advance Directives Information Provided To Patient: No Advance Directives on File: Yes Living Will: Yes Power of Fish And Wildlife Technician: Yes Power of Fish And Wildlife Technician Name: Dayna Cardona Advance Care Planning: <Care Plan/Decision Maker Documented; Discussed & Documented> [[id number]] - Elder Abuse Suspicion Index Screening: Elder Abuse Suspicion Index Screening Rely on people for bathing, dressing, shopping, banking, etc: Yes Prevented from getting food, clothes, medication, etc: No Made to feel shamed or threatened by someone: No Forced to sign papers or use money against will: No Feel afraid, touched in ways not wanted or hurt physically: No Poor eye contact, withdrawn, malnourished, cuts or bruises: No Screening Result: Negative result EASI Reference Information: Cassandra KNIGHT, Ирина Almendarez, Nia D, Annette Collins.Development and validation of a tool to assist physicians identification of elder abuse: The Elder Abuse Suspicion Index (EASI ). Journal of Elder Abuse and Neglect, 2008; 20 (3): 276-300. - Elder Maltreatment Screen Quality Measures: Elder Maltreatment Screen and Follow-Up Plan Elder Maltreatment Screen: <Negative, No Follow-Up Plan Required> [G0134]
[2018-09-08] MEDS ORDERED: METFORMIN 500 MG TABLET PO SCH (17:00)
== END 2018-09-08 16:45 | disposition home or self-care (01) ==
LOC: ER 11:49 → MEDSURG 14:13
PROVIDERS: ADMIT Internal Medicine; ATTEND Internal Medicine
DX: D64.9 Anemia, unspecified (principal); D46.9 Myelodysplastic syndrome, unspecified; G11.9 Hereditary ataxia, unspecified; G62.9 Polyneuropathy, unspecified; E11.9 Type 2 diabetes mellitus without complications; E78.00 Pure hypercholesterolemia, unspecified; R53.1 Weakness; K21.9 Gastro-esophageal reflux disease without esophagitis; Z87.891 Personal history of nicotine dependence
CPT/HCPCS: 36416; 36430; 71046; 80048; 82948; 84484; 85014; 85018; 85027; 86850; 86900; 86901; 99220; 99285; J0881

== ENCOUNTER 2019-06-28 05:41 | Inpatient (IN) | payer MEDICARE, OTHER ==
[2019-06-28] MEDS ORDERED: ACETAMINOPHEN 500 MG TABLET PO ONE (05:45)
[2019-06-28] MEDS ORDERED: 0.9 % SODIUM CHLORIDE 1000ML 1,000 ML IV SCH (05:45)
[2019-06-28] MEDS ORDERED: IBUPROFEN 400 MG TABLET PO ONE (05:45)
[2019-06-28 05:56] LABS: ABSOLUTE NEUTROPHIL COUNT 8.36; BASO % 0.1 % (0-6); EOS % 0.1 % (0-6); HEMATOCRIT 25.3 % (42.0-52.0); HEMOGLOBIN 8.2 gm/dl (14.0-18.0); MEAN CELL VOLUME 111.9 fl (81-97); MEAN CORPUSCULAR HGB CONC 32.4 g/dl (32-36); MEAN PLATELET VOLUME 11.1 fl (7.4-10.4); MONO % 9.1 % (0-9); PLATELET COUNT 178 K/uL (130-400); RED BLOOD COUNT 2.26 M/uL (4.40-5.70); RED CELL DISTRIBUTION WIDTH 22.6 % (11.5-14.5); WHITE BLOOD COUNT W/O DIFF 9.8 K/uL (4.2-12.2)
--- NOTE | 2019-06-28 05:57 | Emergency Department Record ---
History of Present Illness - General Chief complaint: Weakness Stated complaint: WEAK Time Seen by Provider: 06/28/19 05:44 Source: Patient Mode of Arrival: EMS Limitations: No limitations - History of Present Illness Initial comments: 78 yo male presents to ED for evaluation of fever and generalized weakness symptoms for the past 12-24 hours. Patient reports that he is currently being treated for cellulitis to the right ankle with "an antibiotic" prescribed by [facility], also reports productive cough symptoms. Patient denies nausea, vomiting, or abdominal pain symptoms on examination. Patient is s/p cholecystectomy, reports previous abdominal surgery for "ulcers". 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 MD Complaint: Generalized weakness Onset/Timin -: Days(s) Location: Generalized Severity scale (1-10): 4 Consistency: Constant Improves with: Rest Worsens with: Exertion Associated Symptoms: Fever/chills - [place] Coma Scale Eye Response: (4) Open spontaneously Motor Response: (6) Obeys commands Verbal Response: (5) Oriented [place]iden Total: 15 - Related Data Home Medications Medication Instructions Recorded Confirmed Last Taken Mirabegron [Myrbetriq] 25 mg PO DAILY 06/28/19 06/28/19 1 Day Ago ~06/27/19 Previous Rx's Medication Instructions Recorded Acetaminophen [Tylenol 500Mg Tab] 1,000 mg PO Q6H PRN tablet 06/01/18 Polyethylene Glycol 3350 [Miralax] 17 gm PO BID #1 bottle 06/01/18 Simvastatin [Zocor] 20 mg PO QHS tablet 06/01/18 Allergies Allergy/AdvReac Type Severity Reaction Status Date / Time citalopram [From Celexa] Allergy PT UNSURE Verified 06/28/19 05:52 OF REACTION ketamine AdvReac PT UNSURE Verified 06/28/19 05:52 OF REACTION Travel Screening - Travel/Exposure Within Last 30 Days Have you traveled within the last 30 days?: No - Travel/Exposure Within Last Year Have you traveled outside the [place] in the last year?: No - Additonal Travel Details Have you been exposed to anyone with a communicable illness?: No - Travel Symptoms Symptom Screening: None Review of Systems Constitutional: Reports: Chills, Fever, Malaise, Weakness. Denies: Night sweats Eyes: Denies: Eye discharge, Eye pain ENT: Denies: Congestion, Ear pain, Epistaxis Respiratory: Reports: Cough. Denies: Dyspnea Cardiovascular: Denies: Chest pain, Edema Endocrine: Denies: Fatigue, Heat or cold intolerance Gastrointestinal: Denies: Abdominal pain, Nausea, Vomiting Genitourinary: Denies: Incontinence, Retention Musculoskeletal: Denies: Arthralgia, Back pain Skin: Denies: Bruising, Change in color Neurological: Denies: Abnormal gait, Confusion, Headache, Seizure Psychiatric: Denies: Anxiety Hematological/Lymphatic: Denies: Anemia, Blood Clots Past Medical History - SOCIAL HISTORY Smoking Status: Former smoker Alcohol Use: None Drug Use: None - RESPIRATORY Hx Respiratory Disorders: Yes Hx Pneumonia: Yes - CARDIOVASCULAR Hx Cardio Disorders: Yes Comment:: high cholesterol - NEURO Hx Neuro Disorders: Yes Hx Dizziness: Yes Hx Neuropathy: Yes Hx Speech Problem: Yes Hx Weakness: Yes Comment:: ataxia/MDS - GI Hx GI Disorders: Yes Hx Reflux: Yes Hx Wt Loss/Wt Gain: Yes (weight loss of 30lbs in last year) Hx of Polyps: Yes - Hx Genitourinary Disorders: Yes Hx Prostate Problems: Yes - ENDOCRINE Hx Endocrine Disorders: Yes - MUSCULOSKELETAL Hx Musculoskeletal Disorders: No - PSYCH Hx Psych Problems: No - HEMATOLOGY/ONCOLOGY Hx Hematology/Oncology Disorders: Yes Hx Anemia: Yes Hx Blood Disorders: Yes Hx Cancer: Yes (MDS) Hx Chemotherapy: Yes Hx Blood Transfusions: Yes Family Medical History Any Significant Family History?: Yes Hx Cancer: Brother/Sister Hx Dementia: Mother Hx Diabetes: Brother/Sister Hx Heart Disease: Brother/Sister Physical Exam - General General Appearance: Alert, Oriented x3, Cooperative, Moderate distress Limitations: No limitations - Head Head exam: Atraumatic, Normocephalic, Normal inspection Head exam detail: negative: Abrasion, Contusion, Mckay's sign, General tenderness, Hematoma, Laceration - Eye Eye exam: Normal appearance. negative: Conjunctival injection, Periorbital swelling, Periorbital tenderness, Scleral icterus - ENT Ear exam: negative: Auricular hematoma, Auricular trauma Nasal Exam: negative: Active bleeding, Discharge, Dried blood, Foreign body Mouth exam: negative: Drooling, Laceration, Muffled voice, Tongue elevation - Neck Neck exam: Normal inspection. negative: Meningismus, Tenderness - Respiratory Respiratory exam: Rhonchi, Other (Coarse BS bilaterally). negative: Rales, Respiratory distress, Stridor, Wheezes - Cardiovascular Cardiovascular Exam: Normal rhythm, Normal heart sounds, Tachycardia - GI/Abdominal GI/Abdominal exam: Soft, Tenderness (Mild RUQ TTP, no rebound or guarding symptoms are present on examination.). negative: Rebound, Rigid - Rectal Rectal exam: Deferred - exam: Deferred - Extremities Extremities exam: Normal inspection. negative: Pedal edema, Tenderness - Back Back exam: Denies: CVA tenderness (R), CVA tenderness (L) - Neurological Neurological exam: Alert, Normal gait, Oriented X3 - Psychiatric Psychiatric exam: Normal affect, Normal mood - Skin Skin exam: Normal color. negative: Abrasion Type of lesion: negative: abrasion Course Vital Signs 06/28/19 05:43 Temperature 103.0 F H Pulse Rate 129 H Respiratory 20 Rate Pulse Ox 93 L - Reevaluation(s) Reevaluation #1: 06/28/19 06:02 EKG: Sinus tachycardia 121 Normal axis, normal intervals No acute ST-T wave changes Reevaluation #2: 06/28/19 06:26 Laboratory studies were reviewed and appear grossly unremarkable for an acute process except for the following: Hgb 8.2 (baseline 8.8) HCT 25.3 LA 2.0 Glucose 221 Reevaluation #3: 06/28/19 06:42 CXR: Left-sided interstitial process (probable pneumonia) Patient and his were updated on all results, Rocephin and Zithromax ordered to infuse. Temperature improved to 101.3. Case was discussed with Vivian Lynn [employer], will accept admission at this time. Medical Decision Making - Lab Data Result diagrams: 06/28/19 03:40 06/28/19 03:40 Disposition Disposition: Admit Clinical Impression: Chronic anemia CAP (community acquired pneumonia) Qualifiers: Laterality: left Lung location: upper lobe of lung Qualified Code(s): J18.9 - Pneumonia, unspecified organism Fever Qualifiers: Fever type: unspecified Qualified Code(s): R50.9 - Fever, unspecified Disposition: Still a Patient at [facility] [place] Decision to Admit: Admit from ER Decision to Admit Date: 06/28/19 Decision to Admit Time: 06:45 Condition: (2) Stable Forms: Patient Portal Access Time of Disposition: 06:45 Quality - Quality Measures Quality Measures: N/A - Blood Pressure Screening Does Patient Have Any of the Following: No Blood Pressure Classification: Normal BP Reading Systolic Measurement: 110 Diastolic Measurement: 67 Screening for High Blood Pressure: < Normal BP, F/U Not Required > [[id number]]
[2019-06-28 06:03] LABS: MEAN CORPUSCULAR HEMOGLOBIN 36.2 pg (27-33)
[2019-06-28 06:06] LABS: BLOOD UREA NITROGEN 21 mg/dL (8-23); CREATININE 0.8 mg/dL (0.7-1.2); EST GLOMERULAR FILTRATION RATE > 60 mL/min
[2019-06-28 06:07] LABS: TOTAL PROTEIN 6.4 g/dL (6.6-8.7)
[2019-06-28 06:09] LABS: GLUCOSE,RANDOM 221 mg/dL (74-109)
[2019-06-28 06:11] LABS: ALB/GLOB RATIO 2.6 (1.1-1.8); ALBUMIN 4.6 g/dL (4.0-5.0); ALT/SGPT 16 U/L (<41); AST/SGOT 15 U/L (10.0-50.0)
[2019-06-28 06:12] LABS: ALKALINE PHOSPHATASE 95 U/L (40-129)
[2019-06-28] MEDS ORDERED: AZITHROMYCIN 500 MG in 0.9 % SODIUM CHLORIDE 250ML 250 ML IVPB ONE (06:38)
[2019-06-28] MEDS ORDERED: CEFTRIAXONE 1GM/50ML BAG 1 GM/50 ML BAG IVPB ONE (06:38)
--- NOTE | 2019-06-28 06:40 | RADIOLOGY REPORT ---
EXAMINATION: Two View Chest Radiographs EXAM DATE: 06/28/2019 6:24 AM TECHNIQUE: Frontal and lateral views INDICATION: cough, fever COMPARISON: Two-view chest x-ray 06/12/2019 ENCOUNTER: Not applicable FINDINGS: Lower lung volumes on the comparison examination. Increased interstitial opacities throughout the lef t lung. Persistent elevation of the left diaphragm. Heart size obscured. Right subclavian chest port is unchanged. No pneumothorax. No pleural effusion. IMPRESSION: Increased left lung interstitial opacities. This may represent infection or neoplasm superimposed on chronic fibrosis. Dictated by: Semaj Shetty MD on 06/28/2019 6:36 AM. .
[2019-06-28] MEDS ORDERED: 0.9 % SODIUM CHLORIDE 1000ML 1,000 ML IV ONE (11:23)
[2019-06-28] MEDS ORDERED: CEFTRIAXONE SODIUM 1 GM in 0.9 % SODIUM CHLORIDE 100ML 100 ML IVPB SCH (11:23)
[2019-06-28] MEDS ORDERED: POLYETHYLENE GLY 17 GM PACKET PO SCH (11:23)
[2019-06-28] MEDS: AZITHROMYCIN 500 MG TABLET PO SCH (11:50)
[2019-06-28] MEDS ORDERED: DARBEPOETIN SQ ONE (12:00)
[2019-06-28 16:27] LABS: URINE APPEARANCE CLEAR; URINE BILIRUBIN NEGATIVE (NEGATIVE); URINE BLOOD NEGATIVE (NEGATIVE); URINE COLOR YELLOW; URINE KETONE NEGATIVE (NEGATIVE); URINE LEUKOCYTE ESTERASE NEGATIVE (NEGATIVE); URINE NITRITE NEGATIVE (NEGATIVE); URINE PROTEIN NEGATIVE (NEGATIVE); URINE UROBILINOGEN 0.2 E.U./dL (0.20 - 1.00)
[2019-06-28] MEDS: ASPIRIN 81 MG CHEWABLE TABLET PO SCH (17:22)
[2019-06-28] MEDS: Non-Formulary MISC (Finasteride [Finasteride] 5 MG) PO SCH (17:23)
[2019-06-28] MEDS: Non-Formulary MISC (Omeprazole [Prilosec] 20 MG) PO SCH (17:24)
[2019-06-28] MEDS: METFORMIN 500MG PO SCH (17:24)
[2019-06-28] MEDS: PRAVASTATIN SODIUM 80 MG PO SCH (17:24)
[2019-06-28] MEDS: MIRABEGRON 25 MG PO SCH (17:24)
[2019-06-28] MEDS: LORATADINE 10MG PO SCH (17:24)
--- NOTE | 2019-06-28 17:27 | History & Physical ---
History of Present Illness - Date of Service Date of Service for History & Physical: 06/28/19 - History of Present Illness Admitting Diagnosis: Community acquired pneumonia left. Chronic anemia. Fever in adult History of Present Illness: 78 year old male patient presented to ED for evaluation of chills and weakness. Patient noted symptoms to worsen over the past 12-24 hours. Reports currently taking Keflex for a cellulitis on his right ankle, which has since improved. Patient reports chills, a cough, and increased fatigue. Patient reports a hi story of a lung mass and multiple episodes of pneumonia in the past. Patient's past medical history includes ataxia, neuropathy, diabetes, and myelodysplastic syndrome stage one. 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 PCP: Dr. Byrd ED Course: CXR: left-sided interstitial opacities EKG: sinus tachycardia 121, no acute ST-T wave changes UA negative WBC 9.8, lactic 2.0 Hgb 8.2 (at baseline) Temp 103, HR 129 Blood cultures drawn Started Rocephin 1gm q24h and Azithromycin 500mg 06/28/19: Patient A&O x 4, resting comfortably in bed. Reports continued fatigue, but improved from this morning. Denies any nausea, vomiting, diarrhea, or chest pain. Notes shortness of breath with minimal exertion. Travel Screening - Travel/Exposure Within Last 30 Days Have you traveled within the last 30 days?: No - Travel/Exposure Within Last Year Have you traveled outside the [place] in the last year?: No - Additonal Travel Details Have you been exposed to anyone with a communicable illness?: No - Travel Symptoms Symptom Screening: Fever (GT 100.4), Joint & Muscle Aches, Weakness, Fatigue, Chills Review of Systems Reviewed: No additional complaints except as noted below Constitutional: Reports: Chills, Fever, Malaise, Weakness. Denies: Night sweats Eyes: Denies: Eye discharge, Eye pain ENT: Denies: Congestion, Ear pain, Epistaxis Respiratory: Reports: Cough, Dyspnea Cardiovascular: Denies: Chest pain, Edema Endocrine: Denies: Fatigue, Heat or cold intolerance Gastrointestinal: Denies: Abdominal pain, Nausea, Vomiting Genitourinary: Denies: Incontinence, Retention Musculoskeletal: Denies: Arthralgia, Back pain Skin: Denies: Bruising, Change in color Neurological: Denies: Abnormal gait, Confusion, Headache, Seizure Psychiatric: Denies: Anxiety Hematological/Lymphatic: Denies: Anemia, Blood Clots Past Medical History - SOCIAL HISTORY Smoking Status: Former smoker Alcohol Use: None Drug Use: None - RESPIRATORY Hx Respiratory Disorders: Yes Hx Pneumonia: Yes - CARDIOVASCULAR Hx Cardio Disorders: Yes Hx Heart Attack: Yes Comment:: high cholesterol - NEURO Hx Neuro Disorders: Yes Hx Dizziness: Yes Hx Neuropathy: Yes Hx Speech Problem: Yes Hx Weakness: Yes Comment:: ataxia/MDS - GI Hx GI Disorders: Yes Hx Reflux: Yes Hx Wt Loss/Wt Gain: Yes (weight loss of 30lbs in last year) Hx of Polyps: Yes - Hx Genitourinary Disorders: Yes Hx Kidney Stones: Yes Hx Prostate Problems: Yes - ENDOCRINE Hx Endocrine Disorders: Yes - MUSCULOSKELETAL Hx Musculoskeletal Disorders: Yes Hx Arthritis: Yes - PSYCH Hx Psych Problems: No - HEMATOLOGY/ONCOLOGY Hx Hematology/Oncology Disorders: Yes Hx Anemia: Yes Hx Blood Disorders: Yes Hx Cancer: Yes (MDS) Hx Chemotherapy: Yes Hx Blood Transfusions: Yes Hx Blood Transfusion Reaction: No Family Medical History Any Significant Family History?: Yes Hx Cancer: Brother/Sister Hx Dementia: Mother Hx Diabetes: Brother/Sister Hx Heart Disease: Brother/Sister H&P Meds/Allergies - Allergies Allergies: Allergies Allergy/AdvReac Type Severity Reaction Status Date / Time citalopram [From Celexa] Allergy PT UNSURE Verified 06/28/19 05:52 OF REACTION ketamine AdvReac PT UNSURE Verified 06/28/19 05:52 OF REACTION - Home Medications Home Medications Medication Instructions Recorded Confirmed Last Taken Mirabegron [Myrbetriq] 25 mg PO DAILY 06/28/19 06/28/19 1 Day Ago ~06/27/19 Previous Rx's Medication Instructions Recorded Acetaminophen [Tylenol 500Mg Tab] 1,000 mg PO Q6H PRN tablet 06/01/18 Polyethylene Glycol 3350 [Miralax] 17 gm PO BID #1 bottle 06/01/18 Simvastatin [Zocor] 20 mg PO QHS tablet 06/01/18 - Active Medications Active Medications: Current Medications Acetaminophen (Tylenol 500mg Tab) 1,000 mg PO Q6H PRN PRN Reason: PAIN - MILD(1-4)/FEVER Aspirin (Aspirin Chewable) 81 mg PO QPM ЕЛЕНА Azithromycin (Zithromax) 500 mg PO DAILY [facility] Last Admin: 06/28/19 11:50 Dose: Not Given Documented by: Enoxaparin Sodium (Lovenox) 40 mg SQ DAILY [facility] Sodium Chloride () 1,000 mls @ 0 mls/hr IV .Q0M [facility] Last Infusion: 06/28/19 07:27 Dose: Infused Documented by: Sodium Chloride () 1,000 mls @ 100 mls/hr IV .Q10H ONE Stop: 06/28/19 21:22 Last Admin: 06/28/19 11:20 Dose: 100 mls/hr Documented by: CEFTRIAXONE 1GM/50ML BAG (Ceftriaxone 1 Gm-D5w Bag) 1 gm in 50 mls @ 100 mls/hr IVPB Q24H ЕЛЕНА Non-Formulary Medication (Finasteride [Finasteride]) 5 mg PO QPM ЕЛЕНА Non-Formulary Medication (Mirabegron [Myrbetriq]) 25 mg PO QPM ЕЛЕНА Non-Formulary Medication (Omeprazole [Prilosec]) 20 mg PO QPM ЕЛЕНА Non-Formulary Medication (Pravastatin Sodium [Pravastatin Sodium]) 80 mg PO QPM ЕЛЕНА Loratadine 10mg 1 each PO QPM ЕЛЕНА Metformin 500mg 1 each PO QPM [facility] Physical Exam - Vital Signs Vital Signs: Vital Signs - Last 24 Hrs Temp Pulse Pulse Resp BP Pulse Ox 06/28/19 16:00 99.3 F 86 17 123/65 99 06/28/19 12:46 94 H 18 06/28/19 11:23 98.1 F 94 H 18 114/85 97 06/28/19 10:31 97.9 F 98 H 18 97/56 99 06/28/19 09:01 98.2 F 107 H 18 90/62 98 06/28/19 07:30 99.2 F 06/28/19 07:28 109 H 18 98/55 93 L 06/28/19 06:49 101.3 F H 06/28/19 06:46 110/67 06/28/19 05:43 103.0 F H 129 H 20 93 L - General General Appearance: Alert, Oriented x3, Cooperative, No acute distress Limitations: No limitations - Head Head exam: Atraumatic, Normocephalic, Normal inspection Head exam detail: negative: Abrasion, Contusion, Mckay's sign, General tenderness, Hematoma, Laceration - Eye Eye exam: Normal appearance. negative: Conjunctival injection, Periorbital swelling, Periorbital tenderness, Scleral icterus - ENT ENT exam: Normal exam, Mucous membranes moist, Normal external ear exam Ear exam: negative: Auricular hematoma, Auricular trauma Nasal Exam: negative: Active bleeding, Discharge, Dried blood, Foreign body Mouth exam: negative: Drooling, Laceration, Muffled voice, Tongue elevation - Neck Neck exam: Normal inspection. negative: Meningismus, Tenderness - Respiratory Respiratory exam: Rhonchi (left-sided). negative: Rales, Respiratory distress, Stridor, Wheezes - Cardiovascular Cardiovascular Exam: Normal rhythm, Normal heart sounds, Tachycardia Peripheral Pulses: 2+: Radial (R), Radial (L), Dorsalis Pedis (R), Dorsalis Pedis (L) - GI/Abdominal GI/Abdominal exam: Soft, Normal bowel sounds. negative: Rebound, Rigid - Rectal Rectal exam: Deferred - exam: Deferred - Extremities Extremities exam: Normal inspection. negative: Pedal edema, Tenderness Image of Feet: 1 - healing abrasion, minor swelling, no surrounding erythema, warmth, or drainage - Back Back exam: Denies: CVA tenderness (R), CVA tenderness (L) - Neurological Neurological exam: Alert, Oriented X3 - Psychiatric Psychiatric exam: Normal affect, Normal mood - Skin Skin exam: Normal color. negative: Abrasion Type of lesion: negative: abrasion Results - Labs Result Diagrams: 06/28/19 03:40 06/28/19 03:40 Labs Last 24 Hours: Laboratory Results - last 24 hr 06/28/19 06/28/19 06/28/19 03:40 03:40 05:54 WBC 9.8 RBC 2.26 L Hgb 8.2 L Hct 25.3 L MCV 111.9 H MCH 36.2 H MCHC 32.4 RDW 22.6 H Plt Count 178 MPV 11.1 H Lymphocytes % 5.0 L Monocytes % 9.1 H Eosinophils % 0.1 Basophils % 0.1 Absolute Neutrophils 8.36 Sodium 142 Potassium 4.1 Chloride 104 Carbon Dioxide 26.0 Anion Gap 12.0 BUN 21 Creatinine 0.8 Estimated GFR > 60 Random Glucose 221 H Lactic Acid Cancelled 2.0 Calcium 9.0 Total Bilirubin 0.40 AST 15 ALT 16 Alkaline Phosphatase 95 Total Protein 6.4 L Albumin 4.6 Globulin 1.8 Albumin/Globulin Ratio 2.6 H Urine Color Urine Appearance Urine pH Ur Specific [place] Urine Protein Urine Glucose (UA) Urine Ketones Urine Blood Urine Nitrite Urine Bilirubin Urine Urobilinogen Ur Leukocyte Esterase 06/28/19 16:20 WBC RBC Hgb Hct MCV MCH MCHC RDW Plt Count MPV Lymphocytes % Monocytes % Eosinophils % Basophils % Absolute Neutrophils Sodium Potassium Chloride Carbon Dioxide Anion Gap BUN Creatinine Estimated GFR Random Glucose Lactic Acid Calcium Total Bilirubin AST ALT Alkaline Phosphatase Total Protein Albumin Globulin Albumin/Globulin Ratio Urine Color Yellow Urine Appearance Clear Urine pH 6.0 Ur Specific [place] 1.025 Urine Protein Negative Urine Glucose (UA) 100 mg/dl H Urine Ketones Negative Urine Blood Negative Urine Nitrite Negative Urine Bilirubin Negative Urine Urobilinogen 0.2 Ur Leukocyte Esterase Negative - Imaging and Cardiology Chest x-ray Status: Report reviewed VTE H&P Assessment - Risk for VTE Risk for VTE: Yes Risk Level: Moderate Risk Assessment Date: 06/28/19 Risk Assessment Time: 17:27 VTE Orders Placed or Will Be Placed: Yes Plan - Inpatient Certification Inpatient Certification: Admit to inpatient care: Based on my medical assessment, after consideration of patient's risk factors (age, co-morbidities and patient presenting symptoms and acuity), I expect that this patient will remain in the hospital greater than or equal to two midnights and that the services needed warrant inpatient care because: Patient Risk Factors: [age, pneumonia, hospitalization, multiple comorbidities] Estimated length of stay: The patient may reasonably be expected to be discharged or transferred to a hospital within 24-72 hours after admission to [facility]. Services needed: [IV antibiotics, IV fluids, respiratory therapy treatments, nursing care] Post hospital care (if known): [] I certify that my determination is in accordance with my understanding of Medicare requirements for reasonable and necessary inpatient services. 06/28/19 17:28 - Detailed Diagnosis and Plan (1) Community acquired pneumonia Current Visit: Yes Status: Acute Qualifiers: Laterality: left Lung location: upper lobe of lung Qualified Code(s): J18.9 - Pneumonia, unspecified organism Base Code: J18.9 - PNEUMONIA, UNSPECIFIED ORGANISM Comment: 06/28/19: - CXR showing infiltrate of the left lobe - CURB 65 - 1. - Blood cultures drawn - WBC 9.8 - Temp 103, treated with tylenol and motrin, recheck 101.3 - Started Rocephin 1gm q24h, Zithromax 500mg daily - titrate oxygen to maintain sats > 92% (2) Fever Current Visit: Yes Status: Acute Qualifiers: Fever type: unspecified Qualified Code(s): R50.9 - Fever, unspecified Base Code: R50.9 - FEVER, UNSPECIFIED Comment: 06/28/19: - Fever 103 - Blood cultures drawn - Pneumonia as source of infection - Tylenol and motrin prn - NS 0.9% @ 100ml/hr (3) Chronic anemia Current Visit: Yes Status: Chronic Base Code: D64.9 - ANEMIA, UNSPECIFIED Comment: 06/28/19: - Hgb 8.2, at baseline due to MDS (4) DVT prophylaxis Current Visit: Yes Status: Acute Base Code: Z29.9 - ENCOUNTER FOR PROPHYLACTIC MEASURES, UNSPECIFIED Comment: 06/28/19: - High risk due to age, hospitalization, and illness - Lovenox 40mg SQ daily (5) DNR (do not resuscitate) Current Visit: No Status: Acute Base Code: Z66 - DO NOT RESUSCITATE Comment: 06/28/19: - Patient is a DNR code status
[2019-06-28] MEDS: ACETAMINOPHEN 500 MG TABLET PO PRN (17:28)
[2019-06-28] MEDS ORDERED: SIMVASTATIN 20 MG TABLET PO SCH (22:00)
[2019-06-29] MEDS: CEFTRIAXONE 1GM/50ML BAG 1 GM/50 ML BAG IVPB SCH (05:31)
[2019-06-29 06:50] LABS: ABSOLUTE NEUTROPHIL COUNT 3.16; HEMATOCRIT 21.1 % (42.0-52.0); MEAN CELL VOLUME 114.7 fl (81-97); MEAN CORPUSCULAR HGB CONC 31.3 g/dl (32-36); MEAN PLATELET VOLUME 11.4 fl (7.4-10.4); PLATELET COUNT 148 K/uL (130-400); RED BLOOD COUNT 1.84 M/uL (4.40-5.70); RED CELL DISTRIBUTION WIDTH 23.1 % (11.5-14.5); WHITE BLOOD COUNT W/O DIFF 4.4 K/uL (4.2-12.2)
[2019-06-29 07:03] LABS: MEAN CORPUSCULAR HEMOGLOBIN 35.8 pg (27-33)
[2019-06-29 07:14] LABS: BLOOD UREA NITROGEN 15 mg/dL (8-23); CREATININE 0.6 mg/dL (0.7-1.2); EST GLOMERULAR FILTRATION RATE > 60 mL/min; GLUCOSE,RANDOM 162 mg/dL (74-109)
[2019-06-29 07:54] LABS: HEMOGLOBIN 6.6 gm/dl (14.0-18.0)
[2019-06-29] MEDS: AZITHROMYCIN 500 MG TABLET PO SCH (09:30)
--- NOTE | 2019-06-29 09:43 | Physician Progress Note ---
Subjective - Date Date of Physician Progress Note: 06/29/19 - Subjective Subjective Comment: Patient A&O x 4, resting comfortably in bed. Patient reports no increased shortness of breath and notes improvement in cough. Patient discouraged this morning due to drop in hemoglobin of 6.6. 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 Spoke with Dr. Pop ([phone]), patient's oncologist, to let know of current hemoglobin and blood transfusion. Reports patient requires irradiated blood products if he is also neutropenic. Patient has been afebrile since admission, WBC remains 4.4. Objective - Vital Signs Vital Signs: Vital Signs - Last 24 Hrs Temp Pulse Resp BP Pulse Ox 06/29/19 09:00 97.8 F 94 H 20 120/60 97 06/29/19 05:35 97.9 F 88 16 120/69 96 06/29/19 00:00 97.9 F 78 16 119/54 96 06/28/19 21:00 84 16 06/28/19 20:00 99.1 F 84 16 131/60 98 06/28/19 16:00 99.3 F 86 17 123/65 99 06/28/19 12:46 94 H 18 06/28/19 11:23 98.1 F 94 H 18 114/85 97 06/28/19 10:31 97.9 F 98 H 18 97/56 99 - General General Appearance: Alert, Oriented x3, Cooperative, No acute distress Limitations: No limitations - Head Head exam: Atraumatic, Normocephalic, Normal inspection Head exam detail: negative: Abrasion, Contusion, Mckay's sign, General tenderness, Hematoma, Laceration - Eye Eye exam: Normal appearance, PERRL. negative: Conjunctival injection, Periorbital swelling, Periorbital tenderness, Scleral icterus - ENT ENT exam: Normal exam, Mucous membranes moist, Normal external ear exam Ear exam: negative: Auricular hematoma, Auricular trauma Nasal Exam: negative: Active bleeding, Discharge, Dried blood, Foreign body Mouth exam: negative: Drooling, Laceration, Muffled voice, Tongue elevation - Neck Neck exam: Normal inspection. negative: Meningismus, Tenderness - Respiratory Respiratory exam: Decreased breath sounds. negative: Rales, Respiratory distress, Stridor, Wheezes - Cardiovascular Cardiovascular Exam: Regular rate, Normal rhythm, Normal heart sounds Peripheral Pulses: 2+: Radial (R), Radial (L), Dorsalis Pedis (R), Dorsalis Pedis (L) - GI/Abdominal GI/Abdominal exam: Soft, Normal bowel sounds. negative: Rebound, Rigid - Rectal Rectal exam: Deferred - exam: Deferred - Extremities Extremities exam: Normal inspection. negative: Pedal edema, Tenderness Image of Feet: 1 - healing abraison with surrounding bruising. No drainage, erythema, or warmth - Back Back exam: Denies: CVA tenderness (R), CVA tenderness (L) - Neurological Neurological exam: Alert, Oriented X3 - Psychiatric Psychiatric exam: Normal affect, Normal mood - Skin Skin exam: Pallor. negative: Abrasion Type of lesion: negative: abrasion Assessment and Plan - Assessment and Plan (1) Community acquired pneumonia Current Visit: Yes Status: Acute Qualifiers: Laterality: left Lung location: upper lobe of lung Qualified Code(s): J18.9 - Pneumonia, unspecified organism Base Code: J18.9 - PNEUMONIA, UNSPECIFIED ORGANISM Comment: 06/29/19: - CXR showing infiltrate of the left lobe - CURB 65 - 1. - Blood cultures pending - WBC 9.8, 4.4 - Temp 103 in ED, treated with tylenol and motrin, recheck 101.3. Afebrile since admission - Started Rocephin 1gm q24h, Zithromax 500mg daily - titrate oxygen to maintain sats > 92% (2) Chronic anemia Current Visit: Yes Status: Chronic Base Code: D64.9 - ANEMIA, UNSPECIFIED Comment: 06/29/19: - Hgb 8.2, at admission, which is patient's baseline due to MDS. Receives blood transfusions every 5-6 weeks, with last transfusion 2 weeks ago - Hgb 6.6 today - 1 U PRBC, recheck H&H 4 hours after transfussion. Will give 2nd unit if Hemoglobin remains below 7.6 - Spoke with oncologist, Dr. Pop to update on patient's status (3) DVT prophylaxis Current Visit: Yes Status: Acute Base Code: Z29.9 - ENCOUNTER FOR PROPHYLACTIC MEASURES, UNSPECIFIED Comment: 06/29/19: - High risk due to age, hospitalization, and illness - Avoiding pharmacologic therapy due to low hemoglobin - Encourage ambulation within the room, SCDs while in bed (4) DNR (do not resuscitate) Current Visit: No Status: Acute Base Code: Z66 - DO NOT RESUSCITATE Comment: 06/29/19: - Patient is a DNR code status Results - Labs Result Diagrams: 06/29/19 06:36 06/29/19 06:36 Labs Last 24 Hours: Laboratory Results - last 24 hr 06/28/19 06/29/19 06/29/19 16:20 06:36 06:36 WBC 4.4 RBC 1.84 L Hgb 6.6 L* Hct 21.1 L MCV 114.7 H MCH 35.8 H MCHC 31.3 L RDW 23.1 H Plt Count 148 MPV 11.4 H Neutrophils % 85.0 H Band Neutrophils % 0.0 Eosinophils % Not Reportable Basophils % Not Reportable Absolute Neutrophils 3.16 Lymphocytes 13.0 L Monocytes 2.0 Basophils 0.0 Eosinophil Count 0.0 Sodium 141 Potassium 3.7 Chloride 106 Carbon Dioxide 25.0 Anion Gap 10.0 BUN 15 Creatinine 0.6 L Estimated GFR > 60 Random Glucose 162 H Calcium 8.8 Urine Color Yellow Urine Appearance Clear Urine pH 6.0 Ur Specific Morrow 1.025 Urine Protein Negative Urine Glucose (UA) 100 mg/dl H Urine Ketones Negative Urine Blood Negative Urine Nitrite Negative Urine Bilirubin Negative Urine Urobilinogen 0.2 Ur Leukocyte Esterase Negative DVT/PE Assessment - Risk for VTE Risk for VTE: No Risk Level: Moderate Risk Assessment Date: 06/28/19 Risk Assessment Time: 17:27 VTE Orders Placed or Will Be Placed: Yes - Active Medicaitons Current Medications: Current Medications Acetaminophen (Tylenol 500mg Tab) 1,000 mg PO Q6H PRN PRN Reason: PAIN - MILD(1-4)/FEVER Last Admin: 06/28/19 17:28 Dose: 1,000 mg Documented by: Aspirin (Aspirin Chewable) 81 mg PO QPM ЕЛЕНА Last Admin: 06/28/19 17:22 Dose: 81 mg Documented by: Azithromycin (Zithromax) 500 mg PO DAILY [facility] Last Admin: 06/29/19 09:30 Dose: 500 mg Documented by: Sodium Chloride () 1,000 mls @ 0 mls/hr IV .Q0M [facility] Last Infusion: 06/28/19 07:27 Dose: Infused Documented by: CEFTRIAXONE 1GM/50ML BAG (Ceftriaxone 1 Gm-D5w Bag) 1 gm in 50 mls @ 100 mls/hr IVPB Q24H [facility] Last Infusion: 06/29/19 07:14 Dose: Infused Documented by: Non-Formulary Medication (Finasteride [Finasteride]) 5 mg PO QPM [facility] Last Admin: 06/28/19 17:23 Dose: 5 mg Documented by: Non-Formulary Medication (Mirabegron [Myrbetriq]) 25 mg PO QPM [facility] Last Admin: 06/28/19 17:24 Dose: 25 mg Documented by: Non-Formulary Medication (Omeprazole [Prilosec]) 20 mg PO QPM [facility] Last Admin: 06/28/19 17:24 Dose: 20 mg Documented by: Non-Formulary Medication (Pravastatin Sodium [Pravastatin Sodium]) 80 mg PO QPM ЕЛЕНА Last Admin: 06/28/19 17:24 Dose: 80 mg Documented by: Loratadine 10mg 1 each PO QPM ЕЛЕНА Last Admin: 06/28/19 17:24 Dose: 1 each Documented by: Metformin 500mg 1 each PO QPM [facility] Last Admin: 06/28/19 17:24 Dose: 1 each Documented by: AMI Plan - Labs Result Diagrams: 06/29/19 06:36 06/29/19 06:36
[2019-06-29] MEDS ORDERED: ENOXAPARIN 40 MG/0.4 ML SYR SQ SCH (10:00)
[2019-06-29 10:47] LABS: ABO GROUP AB; ANTIBODY SCREEN NEGATIVE (NEGATIVE); IMMED. SPIN CROSSMATCH COMPATIBLE; RH TYPE NEGATIVE
[2019-06-29] MEDS: ACETAMINOPHEN 500 MG TABLET PO PRN (11:43)
[2019-06-29] MEDS: Non-Formulary MISC (Finasteride [Finasteride] 5 MG) PO SCH (17:40)
[2019-06-29] MEDS: ASPIRIN 81 MG CHEWABLE TABLET PO SCH (17:40)
[2019-06-29] MEDS: MIRABEGRON 25 MG PO SCH (17:41)
[2019-06-29] MEDS: LORATADINE 10MG PO SCH (17:41)
[2019-06-29] MEDS: Non-Formulary MISC (Omeprazole [Prilosec] 20 MG) PO SCH (17:41)
[2019-06-29] MEDS: PRAVASTATIN SODIUM 80 MG PO SCH (17:42)
[2019-06-29] MEDS: METFORMIN 500MG PO SCH (17:42)
[2019-06-29 18:20] LABS: HEMOGLOBIN 7.8 gm/dl (14.0-18.0)
[2019-06-29 19:40] LABS: IMMED. SPIN CROSSMATCH COMPATIBLE
[2019-06-30] MEDS: CEFTRIAXONE 1GM/50ML BAG 1 GM/50 ML BAG IVPB SCH (06:00)
[2019-06-30 06:47] LABS: ABSOLUTE NEUTROPHIL COUNT 2.63; HEMOGLOBIN 9.2 gm/dl (14.0-18.0); MEAN CELL VOLUME 106.2 fl (81-97); MEAN CORPUSCULAR HGB CONC 31.7 g/dl (32-36); MEAN PLATELET VOLUME 11.2 fl (7.4-10.4); PLATELET COUNT 150 K/uL (130-400); RED BLOOD COUNT 2.73 M/uL (4.40-5.70); RED CELL DISTRIBUTION WIDTH 22.6 % (11.5-14.5); WHITE BLOOD COUNT W/O DIFF 4.3 K/uL (4.2-12.2)
[2019-06-30 07:00] LABS: MEAN CORPUSCULAR HEMOGLOBIN 33.6 pg (27-33)
[2019-06-30 07:04] LABS: BLOOD UREA NITROGEN 14 mg/dL (8-23); CREATININE 0.6 mg/dL (0.7-1.2); EST GLOMERULAR FILTRATION RATE > 60 mL/min; GLUCOSE,RANDOM 161 mg/dL (74-109)
[2019-06-30 07:25] LABS: ANISOCYTOSIS 1+; HYPOCHROMIA 1+; PLATELET ESTIMATE NORMAL (NORMAL)
--- NOTE | 2019-06-30 10:24 | Rehab Evaluation ---
Patient Information - Patient Information Diagnosis: pneumonia Ordered Treatment: PT Evaluate and Treat Status: Initial Evaluation History: Detail (The patient preseneted in ED on 06/28 with complaints of fever and generalized weakness.) Past Medical/Surgical Hx: PAST MEDICAL/SURGICAL HISTORY Past Surgical History cholecystectomy appendectomy colonoscopy PMH - Respiratory Hx Respiratory Disorders Yes Hx Pneumonia Yes PMH - Cardiovascular Hx Cardiovascular Disorders Yes Hx Heart Attack Yes Comment: high cholesterol PMH - Neuro Hx Neurological Disorders Yes Hx Dizziness Yes Hx Neuropathy Yes Hx Speech Problem Yes Hx Weakness Yes Comment: ataxia/MDS PMH - GI Hx Gastrointestinal Disorders Yes Hx Gastroesophageal Reflux Yes Hx Weight Loss/Weight Gain Yes: weight loss of 30lbs in last year PMH - Hx Genitourinary Disorders Yes Hx Kidney Stones Yes Hx Prostate Problems Yes PMH - Endocrine Hx Endocrine Disorders Yes Hx Diabetes Yes Hx of NIDDM Yes: not any more PMH - Musculoskeletal Hx Musculoskeletal Disorders Yes Hx Arthritis Yes PMH - Psych Hx Psychiatric Problems No PMH - Hematology/Oncology Hx Hematology/Oncology Yes Disorders Hx Anemia Yes Hx Blood Disorders Yes Hx Cancer Yes: MDS Hx Chemotherapy Yes Hx Blood Transfusion Reaction No Premorbid Status: Detail (Prior to admission the patient was ambulatory with 4 wheeled walker community distances and independent with all ADL's.) Social History: Detail (The patient lives with spouse in one story house with 2 steps, a porch and one step to enter house. One railing is present on the steps. The bathroom is equipped with: tub/shower combination with a tub seat and 3 grab bars and an elevated toilet seat. No grab bars are present by toilet however the pt. has sink and counter to push up on. The patient has a 4 wheeled walker and a wheelchair.) Precautions: [place], Fall - Time With Patient Total Time Spent With Patient (Min): 25 Treatment Procedures: Detail (Initial Evaluation, low complexity) Subjective Information - Subjective Information Per Patient (The patient denies pain. The patient did report that he felt fatigue with activity.) Objective Data - Mental Status Patient Orientation: Oriented x3 - Visual Perception Appears within normal limits for therapeutic activities - ROM Within normal limits (The patient's UE and LE AROM is WFL.) - Strength/Tone Not within normal limits (The patient's UE strength was generally 4+ to 5/5. The patient's LE strength was generally 4+/5 except for hip flexors which were 4-/5 bilaterally.) - Coordination Deficit (The patient presents with ataxia in all 4 extremities and trunk. Bilateral decreased movement with DANIEL's and heel to linder test.) - Bed Mobility Independent (The patient was independent with supine to and from sit transfer.) - Transfers Independent (The patient was indpendent with sit to and from stand transfer.) - Balance Balance Sitting: Good Balance Standing: Fair (The patient required support of walker to stand.) - Gait Detail (The patient ambulated with front wheeled walker a distance of 134 feet x 1 with supervision for safety only. The patient's gait pattern was characterized by LE ataxia and mild foot drag on the right which patient stated is typical. Patient had minimal shortness of breath after ambulation.) Therapy Assessment - Therapy Assessment Detail (The patient was independent with bed mobility , transfers and ambulation on levels. The patient stated his was fatigued after ambulating however he has not ambulated distances in a few days. The patient and his were concerned about patient being able to climb stairs at home enterance. Will have pt. complete gait training on stairs this pm. The patient was left in chair with ca ll light within reach and present.) Problem List - Problem List Physical Therapy Problem List: Detail (1) Decreased ability to complete prolonged physical activity (decreased endurance)) Goals - Goals Physical Therapy Goals: The pt. will ambulate on stairs independently using proper technique. Plan - Plan Physical Therapy Plan: PT for 1 session for gait training on stairs.
[2019-06-30] MEDS: AZITHROMYCIN 500 MG TABLET PO SCH (10:40)
--- NOTE | 2019-06-30 15:05 | Physical Therapy Tx Note ---
Physical Therapy Tx Note - Treatment Note Tolerated: Good Total Time Spent With Patient: 15 Physical Therapy Tx Note: Detail (The patient was up in chair when PT arrived. The patient was independent with sit to and from stand transfer. The patient ambulated with front wheeled walker a distance of 60 feet x 1 independently (supervision for safety only). The patient was taken to rehab dept and ambulated on 3 steps with the use of both hands on one railing (side steps) with supervision for safety only. The patient felt comfortable ambulating on stairs and stated he did not feel any LE weakness. The patient has met all inpt goals. Feel the patient does not require any ongoing PT.) Physical Therapy Problem List: Detail (1) Decreased ability to complete prolonged physical activity (decreased endurance)) Physical Therapy Goals: The pt. will ambulate on stairs independently using proper technique. Physical Therapy Plan: The pt. has met all inpt. PT goals and is discharged at this time.
--- NOTE | 2019-06-30 16:30 | Discharge Summary ---
Providers Discharge Summary Date: 06/30/19 Date of admission: 06/28/19 10:52 Attending physician: SULEMA MORRIS Physical Exam - Vital Signs Vital Signs: Vital Signs - Last 24 Hrs Temp Pulse Resp BP BP Pulse Ox 06/30/19 09:00 99.1 F 86 16 140/67 95 06/30/19 05:00 98.4 F 84 16 157/78 99 06/30/19 01:00 98.8 F 84 16 136/66 91 L 06/29/19 17:00 99.8 F H 91 H 16 151/61 96 - General General Appearance: Alert, Oriented x3, Cooperative, No acute distress Limitations: No limitations - Head Head exam: Atraumatic, Normocephalic, Normal inspection Head exam detail: negative: Abrasion, Contusion, Mckay's sign, General tenderness, Hematoma, Laceration - Eye Eye exam: Normal appearance, PERRL. negative: Conjunctival injection, Periorbital swelling, Periorbital tenderness, Scleral icterus - ENT ENT exam: Normal exam, Mucous membranes moist, Normal external ear exam Ear exam: negative: Auricular hematoma, Auricular trauma Nasal Exam: negative: Active bleeding, Discharge, Dried blood, Foreign body Mouth exam: negative: Drooling, Laceration, Muffled voice, Tongue elevation - Neck Neck exam: Normal inspection. negative: Meningismus, Tenderness - Respiratory Respiratory exam: Decreased breath sounds (L more decreased than R). negative: Rales, Respiratory distress, Stridor, Wheezes - Cardiovascular Cardiovascular Exam: Regular rate, Normal rhythm, Normal heart sounds Peripheral Pulses: 2+: Radial (R), Radial (L), Dorsalis Pedis (R), Dorsalis Pedis (L) - GI/Abdominal GI/Abdominal exam: Soft, Normal bowel sounds. negative: Rebound, Rigid - Rectal Rectal exam: Deferred - exam: Deferred - Extremities Extremities exam: Normal inspection. negative: Pedal edema, Tenderness - Back Back exam: Denies: CVA tenderness (R), CVA tenderness (L) - Neurological Neurological exam: Alert, Oriented X3 - Psychiatric Psychiatric exam: Normal affect, Normal mood - Skin Skin exam: Pallor. negative: Abrasion Type of lesion: negative: abrasion Hospitalization - Hospitalization Admission Diagnosis: Community acquired pneumonia left. Chronic anemia. Fever in adult - Problem List/Discharge Diagnosis (1) Community acquired pneumonia Status: Acute Discharge Diagnosis: Laterality: left Lung location: upper lobe of lung Qualified Code(s): J18.9 - Pneumonia, unspecified organism Base Code: J18.9 - PNEUMONIA, UNSPECIFIED ORGANISM Comment: 06/30/19: - CXR showing infiltrate of the left lobe - CURB 65 - 1. - Preliminary Blood cultures: No growth to date - WBC 9.8, 4.4, 4.3 - Discharge home on Zithromax 500mg PO daily x 2 more doses (2) Chronic anemia Status: Chronic Base Code: D64.9 - ANEMIA, UNSPECIFIED Comment: 06/30/19: - Hgb 8.2, at admission, which is patient's baseline due to MDS. Receives blood transfusions every 5-6 weeks, with last transfusion 2 weeks ago - Hgb 6.6 --> 7.8 --> 9.2 after 2 units of PRBCs - Oncologist, Dr. Pop, to update on patient's status (3) DVT prophylaxis Status: Acute Base Code: Z29.9 - ENCOUNTER FOR PROPHYLACTIC MEASURES, UNSPECIFIED Comment: 06/30/19: - High risk due to age, hospitalization, and illness - Avoiding pharmacologic therapy due to low hemoglobin - Encourage ambulation within the room, SCDs while in bed (4) DNR (do not resuscitate) Status: Acute Base Code: Z66 - DO NOT RESUSCITATE Comment: 06/29/19: - Patient is a DNR code status - Hospitalization Course Disposition: Home, Self-Care Hospital Course: 78 year old male patient presented to ED for evaluation of chills and weakness. Patient noted symptoms to worsen over the past 12-24 hours. Reports currently taking Keflex for a cellulitis on his right ankle, which has since improved. Patient reports chills, a cough, and increased fatigue. Patient reports a history of a lung mass and multiple episodes of pneumonia in the past. Patient's past medical history includes ataxia, neuropathy, diabetes, and myelodysplastic syndrome stage one. 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 PCP: Dr. Byrd ED Course: CXR: left-sided interstitial opacities EKG: sinus tachycardia 121, no acute ST-T wave changes UA negative WBC 9.8, lactic 2.0 Hgb 8.2 (at baseline) Temp 103, HR 129 Blood cultures drawn Started Rocephin 1gm q24h and Azithromycin 500mg 06/28/19: Patient A&O x 4, resting comfortably in bed. Reports continued fatigue, but improved from this morning. Denies any nausea, vomiting, diarrhea, or chest pain. Notes shortness of breath with minimal exertion. 06/30/19 Vitals: T 98.2, HR 87, RR 16, BP 123/78, SP02 97% on RA Pt sitting up on bedside, present with pt. He reports feeling much improved and ready to go home. States that he feels much better since receiving the blood transfusions. 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 Will be following up with his Heme/Onc. Procedures: Imaging and X-Rays 06/28/19 05:52 CHEST 2 VIEWS [RAD] Stat Cardiology Procedures 06/28/19 05:53 EKG NOW 06/28/19 11:23 Forepart Rounder .Continuous Abnormal Labs: Abnormal Lab Results 06/28/19 06/28/19 06/28/19 Range/Units 03:40 03:40 16:20 RBC 2.26 L (4.40-5.70) M/uL Hgb 8.2 L (14.0-18.0) gm/dl Hct 25.3 L (42.0-52.0) % MCV 111.9 H (81-97) fl MCH 36.2 H (27-33) pg MCHC (32-36) g/dl RDW 22.6 H (11.5-14.5) % MPV 11.1 H (7.4-10.4) fl Neutrophils % (47-80) % Lymphocytes % 5.0 L (16-45) % Monocytes % 9.1 H (0-9) % Lymphocytes (16-45) % Creatinine (0.7-1.2) mg/dL Random Glucose 221 H (74-109) mg/dL Total Protein 6.4 L (6.6-8.7) g/dL Albumin/Globulin Ratio 2.6 H (1.1-1.8) Urine Glucose (UA) 100 mg/dl H (NEGATIVE) 06/29/19 06/29/19 06/29/19 Range/Units 06:36 06:36 18:10 RBC 1.84 L (4.40-5.70) M/uL Hgb 6.6 L* 7.8 L (14.0-18.0) gm/dl Hct 21.1 L 25.0 L (42.0-52.0) % MCV 114.7 H (81-97) fl MCH 35.8 H (27-33) pg MCHC 31.3 L (32-36) g/dl RDW 23.1 H (11.5-14.5) % MPV 11.4 H (7.4-10.4) fl Neutrophils % 85.0 H (47-80) % Lymphocytes % (16-45) % Monocytes % (0-9) % Lymphocytes 13.0 L (16-45) % Creatinine 0.6 L (0.7-1.2) mg/dL Random Glucose 162 H (74-109) mg/dL Total Protein (6.6-8.7) g/dL Albumin/Globulin Ratio (1.1-1.8) Urine Glucose (UA) (NEGATIVE) 06/30/19 06/30/19 Range/Units 06:24 06:24 RBC 2.73 L (4.40-5.70) M/uL Hgb 9.2 L (14.0-18.0) gm/dl Hct 29.0 L (42.0-52.0) % MCV 106.2 H (81-97) fl MCH 33.6 H (27-33) pg MCHC 31.7 L (32-36) g/dl RDW 22.6 H (11.5-14.5) % MPV 11.2 H (7.4-10.4) fl Neutrophils % (47-80) % Lymphocytes % (16-45) % Monocytes % (0-9) % Lymphocytes (16-45) % Creatinine 0.6 L (0.7-1.2) mg/dL Random Glucose 161 H (74-109) mg/dL Total Protein (6.6-8.7) g/dL Albumin/Globulin Ratio (1.1-1.8) Urine Glucose (UA) (NEGATIVE) Condition at Discharge: (2) Stable Discharge Medications - Discharge Medications Prescriptions: Azithromycin [Zithromax] 500 mg PO DAILY #2 tab Home Medications: Ambulatory Orders Aspirin 81 mg PO QD tab.chew 05/05/17 [Last Taken 1 Day Ago ~06/27/19] Finasteride 5 mg PO QD tab 05/05/17 [Last Taken 1 Day Ago ~06/27/19] Loratadine 10 mg PO QD tab 05/05/17 [Last Taken 1 Day Ago ~06/27/19] Metformin HCl 500 mg PO DAILY tab 05/05/17 [Last Taken 1 Day Ago ~06/27/19] Omeprazole [Prilosec] 20 mg PO QD cap 05/05/17 [Last Taken 1 Day Ago ~06/27/19] Pravastatin Sodium 40 mg PO QD tab 05/05/17 [Last Taken 1 Day Ago ~06/27/19] Acetaminophen [Tylenol 500Mg Tab] 1,000 mg PO Q6H PRN tablet 06/01/18 [Last Taken 1 Day Ago ~06/27/19] Polyethylene Glycol 3350 [Miralax] 17 gm PO BID #1 bottle 06/01/18 [Last Taken 1 Day Ago ~06/27/19] Simvastatin [Zocor] 20 mg PO QHS tablet 06/01/18 [Last Taken 1 Day Ago ~06/27/19] Mirabegron [Myrbetriq] 25 mg PO DAILY 06/28/19 [Last Taken 1 Day Ago ~06/27/19] Acetaminophen [Tylenol 500Mg Tab] 1,000 mg PO Q6H PRN tablet 06/30/19 [Last Taken Unknown] Azithromycin [Zithromax] 500 mg PO DAILY #2 tab 06/30/19 [Last Taken Unknown] Discharge Plan - Discharge Instructions Activity at Discharge: Resume Usual Activities As Tolerated Instructions: Pneumonitis (DC) Quality Measures - Quality Measures Quality Measures: Advance Directives, Documentation of Current Medications in Medical Record, Elder Maltreatment Screen and Follow-Up Plan, Screening for High Blood Pressure and F/U Documented - Current Medications Quality Measure: Measure #130: Documentation of Current Medications Documentation of Current Medications: <Current Medications Documented/Reviewed> [G0354] - Blood Pressure Screening Quality Measure: Screening for High Blood Pressure and Follow-Up Documented Does Patient Have Any of the Following: No Blood Pressure Classification: Pre-Hypertensive BP Reading Systolic Measurement: 123 Diastolic Measurement: 78 Screening for High Blood Pressure: < Pre-Hypertensive BP, F/U Documented > [G8950] Pre-Hypertensive Follow-up Interventions: Follow-up with rescreen every year. - Advance Directives Quality Measure: Measure #47: Care Plan Advance Directives Established: Yes Advance Directives Information Provided To Patient: No Advance Directives on File: Yes Living Will: Yes Power of Pharmaceutical Scientist: Yes Power of Pharmaceutical Scientist Name: Dayna Cardona Advance Care Planning: <Care Plan/Decision Maker Documented; Discussed & Documented> [[id number]] - Elder Abuse Suspicion Index Screening: Elder Abuse Suspicion Index Screening Rely on people for bathing, dressing, shopping, banking, etc: No Prevented from getting food, clothes, medication, etc: No Made to feel shamed or threatened by someone: No Forced to sign papers or use money against will: No Feel afraid, touched in ways not wanted or hurt physically: No Poor eye contact, withdrawn, malnourished, cuts or bruises: No Screening Result: Negative result EASI Reference Information: Cassandra KNIGHT, Ирина C, Nia D, Annette Collins.Development and validation of a tool to assist physicians identification of elder abuse: The Elder Abuse Suspicion Index (EASI ). Journal of Elder Abuse and Neglect, 2008; 20 (3): 276-300. - Elder Maltreatment Screen Quality Measures: Elder Maltreatment Screen and Follow-Up Plan Elder Maltreatment Screen: <Negative, No Follow-Up Plan Required> [G8734]
[2019-07-01] MEDS ORDERED: AZITHROMYCIN 500 MG TABLET PO SCH (10:00)
== END 2019-06-30 17:00 | disposition home or self-care (01) | DRG 195 ==
LOC: ER 05:41 → MEDSURG 10:52
PROVIDERS: ADMIT Internal Medicine; ATTEND Internal Medicine
DX: J18.9 Pneumonia, unspecified organism (principal); R50.9 Fever, unspecified; D64.9 Anemia, unspecified; D46.9 Myelodysplastic syndrome, unspecified; R05 Cough; R27.0 Ataxia, unspecified; E11.9 Type 2 diabetes mellitus without complications; E78.00 Pure hypercholesterolemia, unspecified; G62.9 Polyneuropathy, unspecified; L03.115 Cellulitis of right lower limb; Z87.891 Personal history of nicotine dependence; Z66 Do not resuscitate
CPT/HCPCS: 99285 ×2; 96365; 96366; 83605; 85025; 80053; 71046; 93005; 93010; J0696; 36430; 80048; 81003; 85014; 85018; 85027; 86850; 86900; 86901; 99223; 99233; 99239; J0456; J0881; J7030; J7050

== ENCOUNTER 2019-08-16 03:58 | Inpatient (IN) | payer MEDICARE, OTHER ==
--- NOTE | 2019-08-16 04:07 | Emergency Department Record ---
History of Present Illness - General Chief Complaint: Abdominal Pain Stated Complaint: PAIN Time Seen by Provider: 08/16/19 04:02 Source: EMS Mode of Arrival: EMS Limitations: No limitations - History of Present Illness Initial Comments: 78 yo male presents to ED for evaluation of "pain everywhere" that began several hours ago. Patient denies fevers, chills, rash, or urinary pain symptoms on examination. Patient denies recent injury or trauma. Patient denies abdominal pain, back pain, or pain to the inguinal region. MD Complaint: Other -: Hour(s) Migration to: No migration Severity: Moderate Quality: Aching Consistency: Constant Improves With: Nothing Worsens With: Nothing Associated Symptoms: Denies other symptoms - Related Data Previous Rx's Medication Instructions Recorded Acetaminophen [Tylenol 500Mg Tab] 1,000 mg PO Q6H PRN tablet 06/01/18 Polyethylene Glycol 3350 [Miralax] 17 gm PO BID #1 bottle 06/01/18 Simvastatin [Zocor] 20 mg PO QHS tablet 06/01/18 Acetaminophen [Tylenol 500Mg Tab] 1,000 mg PO Q6H PRN tablet 06/30/19 Azithromycin [Zithromax] 500 mg PO DAILY #2 tab 06/30/19 Allergies Allergy/AdvReac Type Severity Reaction Status Date / Time citalopram [From Celexa] Allergy PT UNSURE Verified 08/16/19 04:03 OF REACTION ketamine AdvReac PT UNSURE Verified 08/16/19 04:03 OF REACTION Review of Systems Constitutional: Denies: Chills, Fever, Malaise Eyes: Denies: Eye discharge, Eye pain ENT: Denies: Congestion, Ear pain, Epistaxis Respiratory: Denies: Cough, Dyspnea Cardiovascular: Denies: Chest pain, Dyspnea on exertion Endocrine: Denies: Fatigue, Heat or cold intolerance Gastrointestinal: Denies: Abdominal pain, Nausea, Vomiting Genitourinary: Denies: Incontinence, Retention Musculoskeletal: Denies: Arthralgia, Back pain Skin: Denies: Bruising, Change in color Neurological: Denies: Abnormal gait, Confusion, Headache, Seizure Psychiatric: Denies: Anxiety Hematological/Lymphatic: Reports: Anemia. Denies: Blood Clots, Easy bleeding, Easy bruising Past Medical History - SOCIAL HISTORY Smoking Status: Former smoker Drug Use: None - RESPIRATORY Hx Respiratory Disorders: Yes Hx Pneumonia: Yes - CARDIOVASCULAR Hx Cardio Disorders: Yes Hx Heart Attack: Yes Comment:: high cholesterol - NEURO Hx Neuro Disorders: Yes Hx Dizziness: Yes Hx Neuropathy: Yes Hx Speech Problem: Yes Hx Weakness: Yes Comment:: ataxia/MDS - GI Hx GI Disorders: Yes Hx Reflux: Yes Hx Wt Loss/Wt Gain: Yes (weight loss of 30lbs in last year) Hx of Polyps: Yes - Hx Genitourinary Disorders: Yes Hx Kidney Stones: Yes Hx Prostate Problems: Yes - ENDOCRINE Hx Endocrine Disorders: Yes - MUSCULOSKELETAL Hx Musculoskeletal Disorders: Yes Hx Arthritis: Yes - PSYCH Hx Psych Problems: No - HEMATOLOGY/ONCOLOGY Hx Hematology/Oncology Disorders: Yes Hx Anemia: Yes Hx Blood Disorders: Yes Hx Cancer: Yes (MDS) Hx Chemotherapy: Yes Hx Blood Transfusions: Yes Hx Blood Transfusion Reaction: No Family Medical History Hx Cancer: Brother/Sister Hx Dementia: Mother Hx Diabetes: Brother/Sister Hx Heart Disease: Brother/Sister Physical Exam - General General Appearance: Alert, Oriented x3, Cooperative, Mild distress Limitations: No limitations - Head Head exam: Atraumatic, Normocephalic, Normal inspection Head exam detail: negative: Abrasion, Contusion, Mckay's sign, General tenderness, Hematoma, Laceration - Eye Eye exam: Normal appearance. negative: Conjunctival injection, Periorbital swelling, Periorbital tenderness, Scleral icterus - ENT Ear exam: negative: Auricular hematoma, Auricular trauma Nasal Exam: negative: Active bleeding, Discharge, Dried blood, Foreign body Mouth exam: negative: Drooling, Laceration, Muffled voice, Tongue elevation - Neck Neck exam: Normal inspection. negative: Meningismus, Tenderness - Respiratory Respiratory exam: Normal lung sounds bilaterally. negative: Rales, Respiratory distress, Rhonchi, Stridor - Cardiovascular Cardiovascular Exam: Regular rate, Normal rhythm, Normal heart sounds - GI/Abdominal GI/Abdominal exam: Soft. negative: Rebound, Rigid, Tenderness - Rectal Rectal exam: Deferred - exam: Normal inspection - Extremities Extremities exam: Normal inspection. negative: Pedal edema, Tenderness - Back Back exam: Denies: CVA tenderness (R), CVA tenderness (L) - Neurological Neurological exam: Alert, Normal gait, Oriented X3 - Psychiatric Psychiatric exam: Normal affect, Normal mood - Skin Skin exam: Pallor. negative: Abrasion Type of lesion: negative: abrasion Course - Reevaluation(s) Reevaluation #1: 08/16/19 05:29 CT Abdomen and Pelvis: No acute process Laboratory studies were reviewed and appear grossly unremarkable for an acute process except for the following: Hgb 8.9 (at baseline) HCT 27.7 Patient is resting significantly more comfortably at this time. Reevaluation #2: 08/16/19 06:20 CXR: Preliminary interpretation Chronic changes Nothing acute Patient is still unable to urinate on re-examination. Patient does report improvement in his overall pain symptoms, will admit for further evaluation. Reevaluation #3: 08/16/19 07:11 Case was discussed with Darlin Koehler NP, will admit for further evaluation pending urinalysis. Patient and his are in agreement with the plan of care as discussed. Medical Decision Making - Lab Data Result diagrams: 08/16/19 04:16 08/16/19 04:16 Disposition Disposition: Admit Clinical Impression: Dysuria, Chronic anemia Disposition: Still a Patient at [facility] Decision to Admit: Admit from ER Decision to Admit Date: 08/16/19 Decision to Admit Time: 07:05 Condition: (2) Stable Forms: Patient Portal Access Time of Disposition: 07:05 Quality - Quality Measures Quality Measures: N/A - Blood Pressure Screening Does Patient Have Any of the Following: No Blood Pressure Classification: Hypertensive Reading Systolic Measurement: 114 Diastolic Measurement: 95 Screening for High Blood Pressure: < First Hypertensive BP, F/U Documented > [[id number]] First Hypertensive Follow-up Interventions: Referral to alternative/primary care provider.
[2019-08-16] MEDS ORDERED: ACETAMINOPHEN 1,000 MG/100 ML BTL IVPB ONE (04:09)
[2019-08-16 04:22] LABS: ABSOLUTE NEUTROPHIL COUNT 9.29; BASO % 0.3 % (0-6); EOS % 0.8 % (0-6); GRAN % 78.2 % (47-80); HEMATOCRIT 27.7 % (42.0-52.0); HEMOGLOBIN 8.9 gm/dl (14.0-18.0); LYMPH % 13.4 % (16-45); MEAN CELL VOLUME 112.6 fl (81-97); MEAN CORPUSCULAR HGB CONC 32.1 g/dl (32-36); MEAN PLATELET VOLUME 11.6 fl (7.4-10.4); MONO % 7.3 % (0-9); PLATELET COUNT 239 K/uL (130-400); RED BLOOD COUNT 2.46 M/uL (4.40-5.70); RED CELL DISTRIBUTION WIDTH 21.2 % (11.5-14.5); WHITE BLOOD COUNT W/O DIFF 11.9 K/uL (4.2-12.2)
[2019-08-16 04:24] LABS: MEAN CORPUSCULAR HEMOGLOBIN 36.1 pg (27-33)
[2019-08-16 04:39] LABS: INFLUENZA A NEGATIVE (NEGATIVE); INFLUENZA B NEGATIVE (NEGATIVE)
[2019-08-16 04:42] LABS: BLOOD UREA NITROGEN 18 mg/dL (8-23); CREATININE 0.9 mg/dL (0.7-1.2); EST GLOMERULAR FILTRATION RATE > 60 mL/min
[2019-08-16 04:43] LABS: TOTAL PROTEIN 6.5 g/dL (6.6-8.7)
[2019-08-16 04:45] LABS: GLUCOSE,RANDOM 219 mg/dL (74-109)
[2019-08-16 04:47] LABS: ALT/SGPT 30 U/L (<41); AST/SGOT 20 U/L (10.0-50.0)
[2019-08-16 04:48] LABS: ALB/GLOB RATIO 2.4 (1.1-1.8); ALBUMIN 4.6 g/dL (4.0-5.0); ALKALINE PHOSPHATASE 92 U/L (40-129); CREATINE PHOSPHOKINASE 49 U/L (39-308)
--- NOTE | 2019-08-16 05:28 | CT SCAN REPORT ---
EXAMINATION: CT Abdomen and Pelvis without IV Contrast EXAM DATE: 08/16/2019 5:22 AM TECHNIQUE: Standard protocol CT imaging of the abdomen and pelvis was performed without intravenous c ontrast. INDICATION: "pain" lower abdomen COMPARISON: None ENCOUNTER: Not applicable CT ABDOMEN AND PELVIS FINDINGS: Lung Bases: Included extent of the lung bases are clear. Hepatobiliary: The liver has a normal size with a smooth surface. Pancreas: The pancreas is normal. Spleen: The spleen is not enlarged. Adrenals: The adrenal glands are normal. Kidneys, Ureters, & Bladder: Both kidneys have a normal size and morphology. There is no hydronephro sis. There are cystic lesions in both kidneys. Both ureters have a normal course and caliber and the urinary bladder a normal morphology and uniform wall thickness. No ureteral or bladder calculi are id entified. Gastrointestinal: The stomach and small bowel are normal with no obstruction or inflammation. The lar ge bowel is within normal limits. Reproductive Organs: Unremarkable Lymphatic System: There is no adenopathy within the abdomen or pelvis. Vasculature: Normal caliber abdominal aorta Peritoneum: No free fluid, free air, or inflammation Abdominal wall & Musculoskeletal: No suspicious bone lesions. Single sclerotic focus in the right raheem ac wing Assessment of the solid organs, soft tissues, and vascular structures is overall limited on noncontra st imaging, IMPRESSION: No acute abdominal or pelvic disease process. Cystic lesions in the kidneys. Dictated by: Genny Gamble DO on 08/16/2019 5:23 AM. .
[2019-08-16] MEDS ORDERED: 0.9 % SODIUM CHLORIDE 1000ML 500 ML IV SCH (06:30)
--- NOTE | 2019-08-16 06:59 | RADIOLOGY REPORT ---
EXAMINATION: Single View Chest EXAM DATE: 08/16/2019 6:30 AM TECHNIQUE: Single view chest INDICATION: cough COMPARISON: June 28, 2019 ENCOUNTER: Not applicable FINDINGS: Low lung volumes as before. Some motion blur which was not present previously. Considering difference s in technique there has been no significant interval change with volume loss of the left lung and pr esumed interstitial infiltrates as before. Right portacatheter unchanged with the tip at the lower SV C. No evident pneumothorax or sizable pleural effusions. Cardiomediastinal silhouette and pulmonary v asculature considered unchanged. IMPRESSION: Stable chest. Dictated by: Kurt Siddiqui DO on 08/16/2019 6:56 AM. .
[2019-08-16] MEDS ORDERED: 0.9 % SODIUM CHLORIDE 1000ML 1,000 ML IV ONE (09:20)
[2019-08-16] MEDS ORDERED: ACETAMINOPHEN 500 MG TABLET PO PRN (09:20)
[2019-08-16] MEDS ORDERED: MIRABEGRON 25 MG PO SCH ×2 (10:00→17:00)
[2019-08-16 10:13] LABS: URINE APPEARANCE SL CLOUDY; URINE BILIRUBIN NEGATIVE (NEGATIVE); URINE BLOOD NEGATIVE (NEGATIVE); URINE COLOR YELLOW; URINE GLUCOSE (UA) NEGATIVE (NEGATIVE); URINE KETONE NEGATIVE (NEGATIVE); URINE LEUKOCYTE ESTERASE NEGATIVE (NEGATIVE); URINE NITRITE NEGATIVE (NEGATIVE); URINE PROTEIN NEGATIVE (NEGATIVE); URINE UROBILINOGEN 0.2 E.U./dL (0.20 - 1.00)
[2019-08-16] MEDS ORDERED: DARBEPOETIN SQ ONE (11:00)
[2019-08-16] MEDS: KETOROLAC 30 MG/ML VIAL IVP PRN ×2 (12:13→19:49)
--- NOTE | 2019-08-16 13:08 | History & Physical ---
History of Present Illness - Date of Service Date of Service for History & Physical: 08/16/19 - History of Present Illness Admitting Diagnosis: Generalized weakness. Rigors History of Present Illness: 08/16/19: Patient presented to ER for "pain everywhere" for a couple hours. Patient denied fevers, chills, urinary symptoms, but pointing to groin area p/Physician. Patient denied known trauma to the abdomen, back or inguinal area. 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 Patient unable to urinate in ER x 3+ hours. Bladder scan revealed only 84 ml urine in the bladder, ER was not able to get urine sample prior to patient being admitted to the Med/Surg floor. Pain improved with IV Ofirmev. PCP: Jeromy Byrd ED Course: Vital Signs Temp Pulse Pulse Resp BP BP Pulse Ox 08/16/19 06:20 115 H 93/58 95 08/16/19 05:08 117 H 22 106/60 95 08/16/19 04:05 98.6 F 72 24 114/95 92 L Intake & Output 08/14/19 08/15/19 08/16/19 08/17/19 06:59 06:59 06:59 06:59 Intake Total 100 Balance 100 Weight 175 lb 175 lb Intake: IV 100 Laboratory 08/16/19 08/16/19 08/16/19 10:10 04:16 04:16 WBC RBC Hgb Hct MCV MCH MCHC RDW Plt Count MPV Gran % Lymphocytes % Monocytes % Eosinophils % Basophils % Absolute Neutrophils Sodium 143 Potassium 4.0 Chloride 103 Carbon Dioxide 25.0 Anion Gap 15.0 BUN 18 Creatinine 0.9 Estimated GFR > 60 Random Glucose 219 H Calcium 9.3 Total Bilirubin 0.50 AST 20 ALT 30 Alkaline Phosphatase 92 Creatine Kinase 49 Total Protein 6.5 L Albumin 4.6 Globulin 1.9 Albumin/Globulin Ratio 2.4 H Urine Color Yellow Urine Appearance Sl cloudy Urine pH 5.5 Ur Specific [place] 1.020 Urine Protein Negative Urine Glucose (UA) Negative Urine Ketones Negative Urine Blood Negative Urine Nitrite Negative Urine Bilirubin Negative Urine Urobilinogen 0.2 Ur Leukocyte Esterase Negative Influenza Type A Ag Negative Influenza Type B Ag Negative 08/16/19 04:16 WBC 11.9 RBC 2.46 L Hgb 8.9 L Hct 27.7 L MCV 112.6 H MCH 36.1 H MCHC 32.1 RDW 21.2 H Plt Count 239 MPV 11.6 H Gran % 78.2 Lymphocytes % 13.4 L Monocytes % 7.3 Eosinophils % 0.8 Basophils % 0.3 Absolute Neutrophils 9.29 Sodium Potassium Chloride Carbon Dioxide Anion Gap BUN Creatinine Estimated GFR Random Glucose Calcium Total Bilirubin AST ALT Alkaline Phosphatase Creatine Kinase Total Protein Albumin Globulin Albumin/Globulin Ratio Urine Color Urine Appearance Urine pH Ur Specific [place] Urine Protein Urine Glucose (UA) Urine Ketones Urine Blood Urine Nitrite Urine Bilirubin Urine Urobilinogen Ur Leukocyte Esterase Influenza Type A Ag Influenza Type B Ag Past Surgical History Date/Surgery cholecystectomy appendectomy colonoscopy Past Medical History Hx Respiratory Disorders Yes Hx Pneumonia Yes Hx Cardiovascular Disorders Yes Hx Heart Attack Yes Comment: high cholesterol Hx Neurological Disorders Yes Hx Dizziness Yes Hx Neuropathy Yes: Arms and Legs Hx Weakness Yes Hx Speech Problem Yes Comment: Cerebellar Ataxia Hx Gastrointestinal Disorders Yes Hx Gastroesophageal Reflux Yes Hx of Polyps Yes Hx Weight Loss/Weight Gain Yes: weight loss of 30lbs in last year Hx Genitourinary Disorders Yes Hx Kidney Stones Yes Hx Prostate Problems Yes Hx Endocrine Disorders Yes Hx of NIDDM Yes: Diet controlled Hx Musculoskeletal Disorders Yes Hx Arthritis Yes Hx Psychiatric Problems No Hx Hematology/Oncology Disorders Yes Hx Anemia Yes: Chronic Anemia Hx Blood Disorders Yes Hx Cancer Yes: MDS * Hx Chemotherapy Yes Hx Blood Transfusions Yes (29 pints p/pt) Hx Blood Transfusion Reaction No History of multi drug resistant No infection History of exposure to TB No History of positive TB test No History of C-Difficile No Hx Influenza Vaccination Yes Hx Pneumococcal Vaccination Yes Immunizations Up to Date Yes Social History Alcohol None Drug Use None Smoking Status Smoking Status Former smoker Uses/Used Cigarettes Family Medical History Any Significant Family Hx? Yes Hx Cancer Brother/Sister Hx Dementia Mother Hx Diabetes Brother/Sister Hx Heart Disease Brother/Sister Skin Risk Assessment Scale Sensory Perception No Impairment Moisture Risk Rarely Moist Activity Risk Walks Occasionally Mobility Risk Slightly Limited Nutrition Risk Adequate Friction & Shear Risk No Apparent Problem Skin Risk Total Score (points) 20 Skin Risk Evaluation No Risk Wound Present on Admission Wound present upon admission? No Medications Acetaminophen (Tylenol 500mg Tab) 1,000 mg PO Q6H PRN PRN Reason: PAIN - MILD(1-4)/FEVER Sodium Chloride () 500 mls @ 0 mls/hr IV .Q0M ЕЛЕНА Sodium Chloride () 1,000 mls @ 100 mls/hr IV .Q10H ONE Acetaminophen (Ofirmev) 1,000 mg in 100 mls @ 400 mls/hr IVPB NOW ONE Stop: 08/16/19 04:23 Last Infusion: 08/16/19 07:20 Dose: 0 mls/hr Documented by: RAYNE Problems Dysuria (Acute) R30.0 Chronic anemia (Chronic) D64.9 06/30/19: - Hgb 8.2, at admission, which is patient's baseline due to MDS. Receives blood transfusions every 5-6 weeks, with last transfusion 2 weeks ago - Hgb 6.6 --> 7.8 --> 9.2 after 2 units of PRBCs - Oncologist, Dr. Pop, to update on patient's status 08/16/19: Patient in room with , laying in bed upon arrival to room. Patient A&Ox4 with delayed responses and intermittent garbled speech r/t Cerebellar Ataxia. Patient reports right lower abdominal/suprapubic pain and inability to urinate. Patient sees Dr Yeboah for retention issues. Patient explained POC, need for urine sample and all questions answered. Patient with chronic anemia and due to receive Aranesp Wednesdays. Per patient he does not receive blood transfusion until Hgb < 8.0. Pt having increased weakness, PT/OT Eval ordered. Travel Screening - Travel/Exposure Within Last 30 Days Have you traveled within the last 30 days?: No - Travel/Exposure Within Last Year Have you traveled outside the [place] in the last year?: No - Additonal Travel Details Have you been exposed to anyone with a communicable illness?: No - Travel Symptoms Symptom Screening: Headache, Stomach Pain, Chills Review of Systems Constitutional: Denies: Chills, Fever, Malaise Eyes: Denies: Eye discharge, Eye pain ENT: Denies: Congestion, Ear pain, Epistaxis Respiratory: Denies: Cough, Dyspnea Cardiovascular: Denies: Chest pain, Dyspnea on exertion Endocrine: Denies: Fatigue, Heat or cold intolerance Gastrointestinal: Denies: Abdominal pain, Nausea, Vomiting Genitourinary: Denies: Incontinence, Retention Musculoskeletal: Denies: Arthralgia, Back pain Skin: Denies: Bruising, Change in color Neurological: Denies: Abnormal gait, Confusion, Headache, Seizure Psychiatric: Denies: Anxiety Hematological/Lymphatic: Reports: Anemia. Denies: Blood Clots, Easy bleeding, Easy bruising Past Medical History - SOCIAL HISTORY Smoking Status: Former smoker Alcohol Use: None Drug Use: None - RESPIRATORY Hx Respiratory Disorders: Yes Hx Pneumonia: Yes - CARDIOVASCULAR Hx Cardio Disorders: Yes Hx Heart Attack: Yes Comment:: high cholesterol - NEURO Hx Neuro Disorders: Yes Hx Dizziness: Yes Hx Neuropathy: Yes Hx Speech Problem: Yes Hx Weakness: Yes Comment:: ataxia/MDS - GI Hx GI Disorders: Yes Hx Reflux: Yes Hx Wt Loss/Wt Gain: Yes (weight loss of 30lbs in last year) Hx of Polyps: Yes - Hx Genitourinary Disorders: Yes Hx Kidney Stones: Yes Hx Prostate Problems: Yes - ENDOCRINE Hx Endocrine Disorders: Yes - MUSCULOSKELETAL Hx Musculoskeletal Disorders: Yes Hx Arthritis: Yes - PSYCH Hx Psych Problems: No - HEMATOLOGY/ONCOLOGY Hx Hematology/Oncology Disorders: Yes Hx Anemia: Yes Hx Blood Disorders: Yes Hx Cancer: Yes (MDS) Hx Chemotherapy: Yes Hx Blood Transfusions: Yes Hx Blood Transfusion Reaction: No Family Medical History Any Significant Family History?: Yes Hx Cancer: Brother/Sister Hx Dementia: Mother Hx Diabetes: Brother/Sister Hx Heart Disease: Brother/Sister H&P Meds/Allergies - Allergies Allergies: Allergies Allergy/AdvReac Type Severity Reaction Status Date / Time citalopram [From Celexa] Allergy PT UNSURE Verified 08/16/19 04:03 OF REACTION ketamine AdvReac PT UNSURE Verified 08/16/19 04:03 OF REACTION - Home Medications Previous Rx's Medication Instructions Recorded Acetaminophen [Tylenol 500Mg Tab] 1,000 mg PO Q6H PRN tablet 06/01/18 Polyethylene Glycol 3350 [Miralax] 17 gm PO BID #1 bottle 06/01/18 Simvastatin [Zocor] 20 mg PO QHS tablet 06/01/18 Acetaminophen [Tylenol 500Mg Tab] 1,000 mg PO Q6H PRN tablet 06/30/19 Azithromycin [Zithromax] 500 mg PO DAILY #2 tab 06/30/19 - Active Medications Active Medications: Current Medications Acetaminophen (Tylenol 500mg Tab) 1,000 mg PO Q6H PRN PRN Reason: PAIN - MILD(1-4)/FEVER Sodium Chloride () 500 mls @ 0 mls/hr IV .Q0M ЕЛЕНА Last Admin: 08/16/19 06:26 Dose: 500 mls/hr Documented by: Sodium Chloride () 1,000 mls @ 100 mls/hr IV .Q10H ONE Stop: 08/16/19 19:19 Last Admin: 08/16/19 09:00 Dose: 100 mls/hr Documented by: Ketorolac Tromethamine (Toradol) 30 mg IVP Q8H PRN PRN Reason: PAIN - MODERATE (5-7) Last Admin: 08/16/19 12:13 Dose: 30 mg Documented by: Non-Formulary Medication (Finasteride [Finasteride]) 5 mg PO QPM ЕЛЕНА Non-Formulary Medication (Omeprazole [Prilosec]) 20 mg PO QPM ЕЛЕНА Non-Formulary Medication (Pravastatin Sodium [Pravastatin Sodium]) 40 mg PO QPM ЕЛЕНА Non-Formulary Medication (Mirabegron [Myrbetriq]) 25 mg PO QPM ЕЛЕНА Aspirin Chew 81 Mg 1 each PO QPM ЕЛЕНА Loratadine 10 Mg 1 each PO QPM ЕЛЕНА Metformin 500 Mg 1 each PO QPM ЕЛЕНА Miralax 17 Gm 1 each PO BID ЕЛЕНА Physical Exam - Vital Signs Vital Signs: Vital Signs - Last 24 Hrs Temp Pulse Pulse Resp BP BP Pulse Ox 08/16/19 06:20 115 H 93/58 95 08/16/19 05:08 117 H 22 106/60 95 08/16/19 04:05 98.6 F 72 24 114/95 92 L - General General Appearance: Alert, Oriented x3, Cooperative, No acute distress Limitations: Physical limitation (Weakness/HFR) - Head Head exam: Atraumatic, Normocephalic, Normal inspection - Eye Eye exam: Normal appearance - Neck Neck exam: Normal inspection. negative: Meningismus, Tenderness - Respiratory Respiratory exam: Normal lung sounds bilaterally. negative: Rales, Respiratory distress, Rhonchi, Stridor - Cardiovascular Cardiovascular Exam: Regular rate, Normal rhythm, Normal heart sounds Peripheral Pulses: 2+: Radial (R), Radial (L), Dorsalis Pedis (R), Dorsalis Pedis (L) - GI/Abdominal GI/Abdominal exam: Soft, Normal bowel sounds, Tenderness (suprapubic/RLQ). negative: Distended, Guarding, Rebound, Rigid - Rectal Rectal exam: Deferred - exam: Deferred - Extremities Extremities exam: Normal inspection. negative: Pedal edema - Back Back exam: Reports: Normal inspection. Denies: CVA tenderness (R), CVA tenderness (L) - Neurological Neurological exam: Alert, Oriented X3 - Psychiatric Psychiatric exam: Normal affect, Normal mood - Skin Skin exam: Dry, Intact, Pallor Results - Labs Result Diagrams: 08/16/19 04:16 08/16/19 04:16 Labs Last 24 Hours: Laboratory Results - last 24 hr 08/16/19 08/16/19 08/16/19 04:16 04:16 04:16 WBC 11.9 RBC 2.46 L Hgb 8.9 L Hct 27.7 L MCV 112.6 H MCH 36.1 H MCHC 32.1 RDW 21.2 H Plt Count 239 MPV 11.6 H Gran % 78.2 Lymphocytes % 13.4 L Monocytes % 7.3 Eosinophils % 0.8 Basophils % 0.3 Absolute Neutrophils 9.29 Sodium 143 Potassium 4.0 Chloride 103 Carbon Dioxide 25.0 Anion Gap 15.0 BUN 18 Creatinine 0.9 Estimated GFR > 60 Random Glucose 219 H Calcium 9.3 Total Bilirubin 0.50 AST 20 ALT 30 Alkaline Phosphatase 92 Creatine Kinase 49 Total Protein 6.5 L Albumin 4.6 Globulin 1.9 Albumin/Globulin Ratio 2.4 H Urine Color Urine Appearance Urine pH Ur Specific [place] Urine Protein Urine Glucose (UA) Urine Ketones Urine Blood Urine Nitrite Urine Bilirubin Urine Urobilinogen Ur Leukocyte Esterase Influenza Type A Ag Negative Influenza Type B Ag Negative 08/16/19 10:10 WBC RBC Hgb Hct MCV MCH MCHC RDW Plt Count MPV Gran % Lymphocytes % Monocytes % Eosinophils % Basophils % Absolute Neutrophils Sodium Potassium Chloride Carbon Dioxide Anion Gap BUN Creatinine Estimated GFR Random Glucose Calcium Total Bilirubin AST ALT Alkaline Phosphatase Creatine Kinase Total Protein Albumin Globulin Albumin/Globulin Ratio Urine Color Yellow Urine Appearance Sl cloudy Urine pH 5.5 Ur Specific [place] 1.020 Urine Protein Negative Urine Glucose (UA) Negative Urine Ketones Negative Urine Blood Negative Urine Nitrite Negative Urine Bilirubin Negative Urine Urobilinogen 0.2 Ur Leukocyte Esterase Negative Influenza Type A Ag Influenza Type B Ag - Imaging and Cardiology Chest x-ray Status: Report reviewed (Negative) CT scan - abdomen Status: Report reviewed (Cystic lesions in kidneys) CT scan - pelvis Status: Report reviewed (No acute abdominal/pelvic disease process) VTE H&P Assessment - Risk for VTE Risk for VTE: Yes Risk Level: High Risk Assessment Date: 08/16/19 Risk Assessment Time: 13:23 VTE Orders Placed or Will Be Placed: Yes Plan - Detailed Diagnosis and Plan (1) Dysuria Current Visit: Yes Status: Acute Base Code: R30.0 - DYSURIA Comment: 08/16/19: -Decreased urine output, hx retention sees Dr. Yeboah -Abdomen TTP RLQ/Suprapubic region -CT Abdomen/Pelvis: No acute abdominal/pelvic disease process. Cystic lesions in the kidneys. -Bladder scan in ER 84 ml -PVR bladder scan ordered NOW -UA: Cloudy, pH 5.5, 1.020 spec. gravity, negative all others -Urine culture pending -Tylenol/Toradol ordered PRN pain -IV NS 100 ml/hr (2) Chronic anemia Current Visit: Yes Status: Chronic Base Code: D64.9 - ANEMIA, UNSPECIFIED Comment: 08/16/19: - Hgb 9.0 >> 8.9 which is patient's baseline due to MDS. Receives blood transfusions for Hgb < 8.0. -Aranesp due to give today. Oncologist, Dr Pop consulted and ordered to give today. (3) Weakness Current Visit: No Status: Acute Base Code: R53.1 - WEAKNESS Comment: 08/16/19: -Reported that patient was having increased weakness, falls at home -PT/OT Eval ordered -Pt with HFR band on, signage on door and slippers on, up with assist, call light and at bedside (4) DVT prophylaxis Current Visit: No Status: Acute Base Code: Z29.9 - ENCOUNTER FOR PROPHYLACTIC MEASURES, UNSPECIFIED Comment: 08/16/19: - High risk due to age, hospitalization, weakness, and illness - Avoiding pharmacologic therapy due to low hemoglobin - Encourage ambulation within the room, SCDs while in bed (5) DNR (do not resuscitate) Current Visit: No Status: Acute Base Code: Z66 - DO NOT RESUSCITATE Comment: 08/16/19: - Patient is a DNR code status this admission
--- NOTE | 2019-08-16 14:08 | Rehab Evaluation ---
Patient Information - Patient Information Diagnosis: generalized weakness, rigors Ordered Treatment: OT Evaluate and Treat Status: Initial Evaluation Surgery: No Past Medical/Surgical Hx: PAST MEDICAL/SURGICAL HISTORY Past Surgical History cholecystectomy appendectomy colonoscopy PMH - Respiratory Hx Respiratory Disorders Yes Hx Pneumonia Yes PMH - Cardiovascular Hx Cardiovascular Disorders Yes Hx Heart Attack Yes Comment: high cholesterol PMH - Neuro Hx Neurological Disorders Yes Hx Dizziness Yes Hx Neuropathy Yes Hx Speech Problem Yes Hx Weakness Yes Comment: ataxia/MDS PMH - GI Hx Gastrointestinal Disorders Yes Hx Gastroesophageal Reflux Yes Hx Weight Loss/Weight Gain Yes: weight loss of 30lbs in last year PMH - Hx Genitourinary Disorders Yes Hx Kidney Stones Yes Hx Prostate Problems Yes PMH - Endocrine Hx Endocrine Disorders Yes Hx Diabetes Yes Hx of NIDDM Yes: not any more PMH - Musculoskeletal Hx Musculoskeletal Disorders Yes Hx Arthritis Yes PMH - Psych Hx Psychiatric Problems No PMH - Hematology/Oncology Hx Hematology/Oncology Yes Disorders Hx Anemia Yes Hx Blood Disorders Yes Hx Cancer Yes: MDS Hx Chemotherapy Yes Hx Blood Transfusion Reaction No Premorbid Status: Detail (Pt lives with spouse in a 1 story house with 3 steps and 1 railing at the entrance. He has a tub/shower combination with a seat and 4 grab bars as well as an elevated toilet without grab bars. He typically ambulates with a 4 wheeled walker. He is Ind with showering and dressing and his is responsible for meal prep, laundry and home mgmt tasks.) Social History: Detail (Supportive spouse.) Precautions: [place], Fall - Time With Patient Total Time Spent With Patient (Min): 25 Treatment Procedures: Detail (OT eval low complexity) Subjective Information - Subjective Information Per Patient Objective Data - Pain Pain Present: Yes (3/10 lower abdomen pain) - Mental Status Patient Orientation: Oriented x3 - Visual Perception Appears within normal limits for therapeutic activities (Pt wears glasses) - ROM Within normal limits (Rober UE AROM WNL) - Strength/Tone Not within normal limits (Rober shoulder strength 4/5, 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 Pt presents with significant UE tremors which he reports are longstanding.) - Coordination Deficit (Pt reports premorbid difficulty with coordination due to tremors.) - Bed Mobility Independent (Ind with supine to sit and sit to supine.) - Transfers Independent (Pt able to perform sit to stand from EOB with SBA) - Balance Balance Sitting: Good Balance Standing: Fair - Sensation Intact - Gait Detail (Pt ambulating in room and short distance in hallway with 2 wheeled walker and CG assist.) - ADL's/IADL's Detail (Pt reports he was able to don his PJ bottoms today and he has no concerns about completing self cares after discharge.) Therapy Assessment - Therapy Assessment Detail (Pt presents with decreased shoulder strength which may be longstanding as well as UE tremors which impair his coordination. Pt feels he will not have any difficulty with self cares after discharge and he is not interested in home therapy at this time.) Problem List - Problem List Occupational Therapy Problem List: Detail (1. Decreased coordination and shoulder strength.) Goals - Goals Occupational Therapy Goals: 1. Pt will participate in UE strengthening and coordination training. Prognosis - Prognosis Good Plan - Plan Occupational Therapy Plan: OT will follow until discharge to address goal above. Pt requesting no home therapy at this time.
--- NOTE | 2019-08-16 14:36 | Rehab Evaluation ---
Patient Information - Patient Information Diagnosis: generalized weakness, rigors Ordered Treatment: PT Evaluate and Treat Status: Initial Evaluation Surgery: No Past Medical/Surgical Hx: PAST MEDICAL/SURGICAL HISTORY Past Surgical History cholecystectomy appendectomy colonoscopy PMH - Respiratory Hx Respiratory Disorders Yes Hx Pneumonia Yes PMH - Cardiovascular Hx Cardiovascular Disorders Yes Hx Heart Attack Yes Comment: high cholesterol PMH - Neuro Hx Neurological Disorders Yes Hx Dizziness Yes Hx Neuropathy Yes Hx Speech Problem Yes Hx Weakness Yes Comment: ataxia/MDS PMH - GI Hx Gastrointestinal Disorders Yes Hx Gastroesophageal Reflux Yes Hx Weight Loss/Weight Gain Yes: weight loss of 30lbs in last year PMH - Hx Genitourinary Disorders Yes Hx Kidney Stones Yes Hx Prostate Problems Yes PMH - Endocrine Hx Endocrine Disorders Yes Hx Diabetes Yes Hx of NIDDM Yes: not any more PMH - Musculoskeletal Hx Musculoskeletal Disorders Yes Hx Arthritis Yes PMH - Psych Hx Psychiatric Problems No PMH - Hematology/Oncology Hx Hematology/Oncology Yes Disorders Hx Anemia Yes Hx Blood Disorders Yes Hx Cancer Yes: MDS Hx Chemotherapy Yes Hx Blood Transfusion Reaction No Premorbid Status: Detail (Pt lives with spouse in a 1 story house with 3 steps and 1 railing at the entrance. He has a tub/shower combination with a seat and 4 grab bars as well as an elevated toilet without grab bars. He typically ambulates with a 4 wheeled walker. He is Ind with showering and dressing and his is responsible for meal prep, laundry and home mgmt tasks.) Social History: Detail (Supportive spouse.) Precautions: [place], Fall - Time With Patient Total Time Spent With Patient (Min): 25 Treatment Procedures: Detail (Initial Evaluation low complexity) Subjective Information - Subjective Information Per Patient (The patient initially had complaints of groin region pain. The patient currently has no complaints of plan. The patient does complain of LE weakness.) Objective Data - Mental Status Patient Orientation: Oriented x3 - Visual Perception Appears within normal limits for therapeutic activities - ROM Within normal limits (LE AROM is WNL.) - Strength/Tone Not within normal limits (Patient's LE strength is as follows bilaterally: hip musculature was generally 4-/5, knee flexors 4-/5, knee extensors 4/5, ankle musculature generally 4/5.) - Coordination Deficit (The patient exhibits all ataxic movements all 4 extremities and trunk.) - Bed Mobility Independent (The patient was independent with supine to and from sit transfer.) - Transfers Independent (The patient completed sit to stand with supervision for safety only.) - Balance Balance Sitting: Fair Balance Standing: Poor (The patient stands with a wide base of support and requires walker to maintain standing balance due to ataxia.) - Gait Detail (The patient ambulated with front wheeled walker with CG/supervision for safety a distance of 100 feet x 1. The patient's gait pattern was characterized by LE ataxic movement, walker placed too far forward and L foot drag at times. The patient stated his gait pattern was unchanged from his usual pattern. The patient was fatigued and short of breath after ambulating.) Therapy Assessment - Therapy Assessment Detail (The patient exhibited decreased LE strength( compared to previous PT evaluation on 06/27 admission and decreased ambulation endurance. The patient would benefit from inpt. PT to increase ambulation distance and gait training on stairs. The patient decline Home PT services.) Problem List - Problem List Physical Therapy Problem List: Detail (1) Impaired ambulation 2) Decreased LE strength 3) Ataxia 4) Decreased ambulation distance and endurance for physical activity) Occupational Therapy Problem List: Detail (1. Decreased coordination and shoulder strength.) Goals - Goals Physical Therapy Goals: 1) The patient will ambulate household to community distances with supervision/CG with assistive device. 2) The patient will ambulate on stairs with supervision for safety. 3) Increase LE strength 1/3 muscle grade to increase stability of gait. Occupational Therapy Goals: 1. Pt will participate in UE strengthening and coordination training. Plan - Plan Physical Therapy Plan: PT daily for gait training on levels and stairs, LE strengthening exercises. Occupational Therapy Plan: OT will follow until discharge to address goal above. Pt requesting no home therapy at this time.
[2019-08-16] MEDS: CEFTRIAXONE 1GM/50ML BAG 1 GM/50 ML BAG IVPB SCH (16:40)
[2019-08-16] MEDS ORDERED: MORPHINE SULFATE 5 MG/ML VIAL IVP PRN ×2 (17:55→19:17)
[2019-08-16] MEDS ORDERED: ONDANSETRON HCL IV 4 MG/2 ML VIAL IVP PRN (17:58)
[2019-08-16] MEDS: Non-Formulary MISC (Finasteride [Finasteride] 5 MG) PO SCH (19:34)
[2019-08-16] MEDS: Non-Formulary MISC (Omeprazole [Prilosec] 20 MG) PO SCH (19:36)
[2019-08-16] MEDS: ASPIRIN 81 MG PO SCH (19:36)
[2019-08-16] MEDS: METFORMIN 500 MG PO SCH (19:37)
[2019-08-16] MEDS: LORATADINE 10 MG PO SCH (19:37)
[2019-08-16] MEDS: PRAVASTATIN SODIUM 40 MG PO SCH (19:38)
--- NOTE | 2019-08-16 20:08 | CT ANGIOGRAM REPORT ---
EXAMINATION: CTA of the Abdomen and Pelvis EXAMINATION DATE: 08/16/2019 7:44 PM TECHNIQUE: Standard protocol CTA imaging of the abdomen and pelvis was performed without and with int ravenous contrast. Postprocessing was performed creating 2D coronal maximal intensity projection (MIP ) images and 3D images. IV Contrast: The amount and type of contrast are recorded in the medical record. INDICATION: RLQ pain COMPARISON: CT of the abdomen and pelvis without contrast 08/16/2019. CT the abdomen and pelvis with c ontrast 05/21/2017. ENCOUNTER: Not applicable FINDINGS: 1. Abdominal Aorta: No abdominal aortic aneurysm or dissection. 2. Celiac Artery: Normal caliber. No significant stenosis. 3. SMA: Normal caliber. No significant stenosis. 4. ANA: Normal caliber. No significant stenosis. 5. Right Renal Artery: Normal caliber. No significant stenosis. 6. Left Renal Artery: Normal caliber. No significant stenosis. 7. Right Iliac arteries: No significant stenosis is present. 8. Left Iliac arteries: No significant stenosis is present. ABDOMINAL AND PELVIC FINDINGS: Lung Bases: Subsegmental atelectasis in the left lung base. Elevation left hemidiaphragm. Hepatobiliary: The liver has a normal size with a smooth surface. The hepatic and portal veins appear patent. The gallbladder is surgically absent. Extrahepatic and intrahepatic bile duct dilatation is demonstrated. The common bile duct measures 10 mm in diameter. Pancreas: The pancreas is normal. Spleen: The spleen is not enlarged. Adrenals: The adrenal glands are normal. Kidneys, Ureters, & Bladder: A 9 mm left renal simple cyst, a 2 cm left renal simple cyst and a 2.9 c m left renal simple cyst are noted. Both kidneys have a normal size and there is no hydronephrosis. Both ureters have a normal caliber and the urinary bladder is unremarkable. Gastrointestinal: The stomach and small bowel are normal with no obstruction or inflammation. The lar ge bowel is normal. Prominent stool in colon and rectum. The appendix is surgically absent. Reproductive Organs: Unremarkable Lymphatic System: There is no adenopathy within the abdomen or pelvis. Peritoneum: No free fluid, free air, or inflammation Abdominal Wall & Musculoskeletal: No suspicious bone lesions. Mild degenerative changes of the spine IMPRESSION: 1. The cause of pain is not definitively identified: -Prominent stool within the colon. No high-grade obstruction. Prior appendectomy -No aortic aneurysm or dissection. No evidence of bowel ischemia -Prominent intrahepatic and extrahepatic bile ducts are greater than expected for age and prior july cystectomy although this remains the most likely explanation. Correlation with biochemical and clinic al evidence for biliary obstruction may guide the need for additional evaluation Dictated by: CONNIE CARLTON MD on 08/16/2019 7:45 PM. .
[2019-08-16] MEDS ORDERED: 0.9 % SODIUM CHLORIDE 1000ML 1,000 ML IV PRN (20:13)
[2019-08-16] MEDS ORDERED: MAGNESIUM HYDROXIDE/AL HYDROX 30 ML, LIDOCAINE VISC 2% 15ML 15 ML PO PRN ×2 (20:19)
[2019-08-16] MEDS ORDERED: METOCLOPRAMIDE HCL 10 MG/2 ML VIAL IV PRN (20:21)
[2019-08-16] MEDS: MIRALAX PO SCH (21:30)
[2019-08-16] MEDS ORDERED: SIMVASTATIN 20 MG TABLET PO SCH (22:00)
[2019-08-17] MEDS: CEFTRIAXONE 1GM/50ML BAG 1 GM/50 ML BAG IVPB SCH ×2 (03:48→15:38)
[2019-08-17] MEDS: MIRALAX PO SCH (04:29)
[2019-08-17 09:30] LABS: ABSOLUTE NEUTROPHIL COUNT 1.98; BASO % 0.3 % (0-6); GRAN % 67.4 % (47-80); HEMATOCRIT 21.9 % (42.0-52.0); LYMPH % 23.1 % (16-45); MEAN CELL VOLUME 113.5 fl (81-97); MEAN PLATELET VOLUME 11.3 fl (7.4-10.4); MONO % 8.2 % (0-9); PLATELET COUNT 111 K/uL (130-400); RED BLOOD COUNT 1.93 M/uL (4.40-5.70); RED CELL DISTRIBUTION WIDTH 21.6 % (11.5-14.5); WHITE BLOOD COUNT W/O DIFF 2.9 K/uL (4.2-12.2)
[2019-08-17 09:32] LABS: MEAN CORPUSCULAR HEMOGLOBIN 36.2 pg (27-33)
[2019-08-17] MEDS: POLYETHYLENE GLY 17 GM PACKET PO SCH ×2 (09:45→21:42)
[2019-08-17 09:47] LABS: ALB/GLOB RATIO 2.2 (1.1-1.8); ALBUMIN 3.9 g/dL (4.0-5.0); ALKALINE PHOSPHATASE 151 U/L (40-129); ALT/SGPT 426 U/L (<41); AMYLASE 116 U/L (28-100); AST/SGOT 257 U/L (10.0-50.0); BLOOD UREA NITROGEN 17 mg/dL (8-23); CREATININE 0.7 mg/dL (0.7-1.2); EST GLOMERULAR FILTRATION RATE > 60 mL/min; GLUCOSE,RANDOM 283 mg/dL (74-109); LIPASE 88 U/L (13-60); TOTAL PROTEIN 5.7 g/dL (6.6-8.7)
[2019-08-17] MEDS ORDERED: ENOXAPARIN 40 MG/0.4 ML SYR SQ SCH (10:00)
[2019-08-17 10:52] LABS: ABO GROUP AB; ANTIBODY SCREEN NEGATIVE (NEGATIVE); IMMED. SPIN CROSSMATCH COMPATIBLE; RH TYPE NEGATIVE
--- NOTE | 2019-08-17 11:49 | Physical Therapy Tx Note ---
Physical Therapy Tx Note - Treatment Note Tolerated: Good Total Time Spent With Patient: 25 Physical Therapy Tx Note: Detail (Pt reclined in bed upon arrival, reading newspaper, present in room. Independent w/bed mobility. Good sitting balance. Sit/stand transfer to front wheeled walker w/CGA, ambulated from bedside to nrsg station and back to bedside w/CGA (about 100 feet). Discussed stair technique that pt uses (stepping sideways) and how he enters/exits home. Pt denied any pain or fatigue. Awaiting blood transfusion to determine plan of care. Pt independently got back into bed. Left in bed w/call light in reach, present in room.) Physical Therapy Problem List: Detail (1) Impaired ambulation 2) Decreased LE strength 3) Ataxia 4) Decreased ambulation distance and endurance for physical activity) Physical Therapy Goals: 1) The patient will ambulate household to community distances with supervision/CG with assistive device. 2) The patient will ambulate on stairs with supervision for safety. 3) Increase LE strength 1/3 muscle grade to increase stability of gait. Prognosis: Good Physical Therapy Plan: PT daily for gait training on levels and stairs, LE strengthening exercises.
--- NOTE | 2019-08-17 14:06 | Physician Progress Note ---
Subjective - Date Date of Physician Progress Note: 08/17/19 - Subjective Subjective Comment: 08/17/19: Patient resting in bed with present. Patient reports increased pain accompanied by nausea last night radiating from suprapubic region around to flank/back and down both thighs. Patient reported that the Morphine brought his pain down to a 3/10 and he was able to sleep. Patient updated on CT results only showing prominent stool present. Patient states he frequently has problems with his bowels and takes Miralax to help with BM. Patient doesn't feel constipated and had BM yesterday 08/16/19. Patient still mildy TTP mid-suprapubic region. Remains afebrile, denies nausea/vomiting currently. Patient's lab work came back with a Hgb 7.0. Will transfuse one unit PRBC, recheck Hgb/Hct and potentially a second unit PRBC. Patient and updated on POC. Discharge wi ll depend on patient's pain control, any difficulty urinating and Hgb/Hct results. Location: Pelvis Radiation: Back, Flank, Other (BLE) Consistency: Intermittent Improves with: Medication Worsens with: None Associated symptoms: Denies other symptoms Objective - Vital Signs Vital Signs: Vital Signs - Last 24 Hrs Temp Pulse Resp BP Pulse Ox 08/17/19 11:23 87 16 116/52 98 08/17/19 07:19 97.9 F 79 16 96/52 97 08/17/19 04:00 98 F 75 16 105/64 96 08/16/19 19:56 98.4 F 93 H 20 137/58 92 L 08/16/19 18:00 97.9 F 95 H 20 136/62 08/16/19 16:00 99.5 F 111 H 20 120/83 - General General Appearance: Alert, Oriented x3, Cooperative, No acute distress Limitations: Physical limitation (Weakness/HFR) - Head Head exam: Atraumatic, Normocephalic, Normal inspection - Eye Eye exam: Normal appearance - Neck Neck exam: Normal inspection, Full ROM - Respiratory Respiratory exam: Normal lung sounds bilaterally. negative: Rales, Respiratory distress, Rhonchi, Stridor, Wheezes - Cardiovascular Cardiovascular Exam: Regular rate, Normal rhythm, Normal heart sounds Peripheral Pulses: 2+: Dorsalis Pedis (R), Dorsalis Pedis (L) - GI/Abdominal GI/Abdominal exam: Soft, Normal bowel sounds, Tenderness (suprapubic). negative: Distended, Guarding, Rebound, Rigid - Rectal Rectal exam: Deferred - exam: Deferred - Extremities Extremities exam: Normal inspection. negative: Pedal edema - Back Back exam: Reports: Normal inspection. Denies: CVA tenderness (R), CVA tenderness (L) - Neurological Neurological exam: Alert, Oriented X3 - Psychiatric Psychiatric exam: Normal affect, Normal mood - Skin Skin exam: Dry, Intact, Pallor Assessment and Plan - Assessment and Plan (1) Dysuria Current Visit: Yes Status: Acute Base Code: R30.0 - DYSURIA Comment: 08/17/19: -Decreased urine output at home/in ER, hx retention sees Dr. Yeboah -Still c/o burning with initiation of stream followed by weak stream, taking Finasteride only as Myrbertriq didn't help -Abdomen TTP Suprapubic region, RLQ resolved -CT Abdomen/Pelvis: No acute abdominal/pelvic disease process. Cystic lesions in the kidneys. -Repeat CT w/oral & IV contrast: 1. The cause of pain is not definitively identified: Prominent stool within the colon. No high-grade obstruction. Prior appendectomy. No aortic aneurysm or dissection. No evidence of bowel ischemia. Prominent intrahepatic and extrahepatic bile ducts are greater than expected for age and prior cholecystectomy although this remains the most likely explanation. Correlation with biochemical and clinical evidence for biliary obstruction may guide the need for additional evaluation -Bladder scan in ER 84 ml -PVR bladder scan 08/16/19 was 24 ml -UA: Cloudy, pH 5.5, 1.020 spec. gravity, negative all others -Urine culture still pending -Tylenol/Toradol/Morphine/GI cocktail ordered PRN pain -IV NS 100 ml/hr, D/C today to increase PO fluids (2) Chronic anemia Current Visit: Yes Status: Chronic Base Code: D64.9 - ANEMIA, UNSPECIFIED Comment: 08/17/19: - Chronic anemia d/t MDS. Receives blood transfusions for Hgb < 8.0. - Hgb 9.0 >> 8.9 >> 7.0. One unit PRBC ordered to transfuse. - Aranesp given 08/16/19 ok per Oncologist, Dr Pop. (3) Weakness Current Visit: No Status: Acute Base Code: R53.1 - WEAKNESS Comment: 08/17/19: -Reported that patient was having increased weakness, falls at home -PT/OT working with patient on independent transfers/mobility training -Pt with HFR band on, signage on door and slippers on, up with assist, call light and at bedside (4) DVT prophylaxis Current Visit: No Status: Acute Base Code: Z29.9 - ENCOUNTER FOR PROPHYLACTIC MEASURES, UNSPECIFIED Comment: 08/17/19: - High risk due to age, hospitalization, weakness, and illness - Avoiding pharmacologic therapy due to low hemoglobin - Encourage ambulation within the room, SCDs while in bed (5) DNR (do not resuscitate) Current Visit: No Status: Acute Base Code: Z66 - DO NOT RESUSCITATE Comment: 08/17/19: - Patient is a DNR code status this admission Results - Labs Result Diagrams: 08/17/19 09:00 08/17/19 09:00 Labs Last 24 Hours: Laboratory Results - last 24 hr 08/17/19 08/17/19 08/17/19 07:19 09:00 09:00 WBC 2.9 L RBC 1.93 L Hgb 7.0 L Hct 21.9 L MCV 113.5 H MCH 36.2 H MCHC 32.0 RDW 21.6 H Plt Count 111 L MPV 11.3 H Gran % 67.4 Lymphocytes % 23.1 Monocytes % 8.2 Eosinophils % 1.0 Basophils % 0.3 Absolute Neutrophils 1.98 Sodium 141 Potassium 3.9 Chloride 106 Carbon Dioxide 24.0 Anion Gap 11.0 BUN 17 Creatinine 0.7 Estimated GFR > 60 POC Glucose 128 H Random Glucose 283 H Calcium 8.6 L Total Bilirubin 0.40 AST 257 H ALT 426 H Alkaline Phosphatase 151 H Total Protein 5.7 L Albumin 3.9 L Globulin 1.8 Albumin/Globulin Ratio 2.2 H Amylase 116 H Lipase 88 H ABO Group Rh Factor Antibody Screen Crossmatch 08/17/19 09:20 WBC RBC Hgb Hct MCV MCH MCHC RDW Plt Count MPV Gran % Lymphocytes % Monocytes % Eosinophils % Basophils % Absolute Neutrophils Sodium Potassium Chloride Carbon Dioxide Anion Gap BUN Creatinine Estimated GFR POC Glucose Random Glucose Calcium Total Bilirubin AST ALT Alkaline Phosphatase Total Protein Albumin Globulin Albumin/Globulin Ratio Amylase Lipase ABO Group Ab Rh Factor Negative Antibody Screen Negative Crossmatch Yes - Imaging and Cardiology CT scan - abdomen Status: Report reviewed CT scan - pelvis Status: Report reviewed DVT/PE Assessment - Risk for VTE Risk for VTE: Yes Risk Level: High Risk Assessment Date: 08/16/19 Risk Assessment Time: 13:23 VTE Orders Placed or Will Be Placed: Yes - Active Medicaitons Current Medications: Current Medications Acetaminophen (Tylenol 500mg Tab) 1,000 mg PO Q6H PRN PRN Reason: PAIN - MILD(1-4)/FEVER Al Hydroxide/Mg Hydroxide 30 (ml/ Lidocaine HCl 15 ml) 0 ml PO Q8H PRN PRN Reason: ABDOMINAL PAIN Last Admin: 08/16/19 22:00 Dose: 45 liquid Documented by: CEFTRIAXONE 1GM/50ML BAG (Ceftriaxone 1 Gm-D5w Bag) 1 gm in 50 mls @ 100 mls/hr IVPB Q12H ЕЛЕНА Last Infusion: 08/17/19 04:28 Dose: Infused Documented by: Sodium Chloride () 1,000 mls @ 100 mls/hr IV .Q10H PRN PRN Reason: LARGE VOLUME IV Last Admin: 08/16/19 21:00 Dose: 100 mls/hr Documented by: Ketorolac Tromethamine (Toradol) 30 mg IVP Q8H PRN PRN Reason: PAIN - MODERATE (5-7) Last Admin: 08/16/19 19:49 Dose: 30 mg Documented by: Metoclopramide HCl (Reglan) 10 mg IV Q8H PRN PRN Reason: NAUSEA Last Admin: 08/16/19 21:30 Dose: 10 mg Documented by: Morphine Sulfate (Morphine Sulfate) 2 mg IVP Q4H PRN PRN Reason: PAIN - SEVERE (8-10) Stop: 08/23/19 17:56 Last Admin: 08/16/19 18:04 Dose: 2 mg Documented by: Non-Formulary Medication (Finasteride [Finasteride]) 5 mg PO QPM ЕЛЕНА Last Admin: 08/16/19 19:34 Dose: Not Given Documented by: Non-Formulary Medication (Omeprazole [Prilosec]) 20 mg PO QPM ЕЛЕНА Last Admin: 08/16/19 19:36 Dose: Not Given Documented by: Non-Formulary Medication (Pravastatin Sodium [Pravastatin Sodium]) 40 mg PO QPM ЕЛЕНА Last Admin: 08/16/19 19:38 Dose: Not Given Documented by: Ondansetron HCl (Zofran) 4 mg IVP Q6H PRN PRN Reason: NAUSEA Last Admin: 08/16/19 18:03 Dose: 4 mg Documented by: Aspirin Chew 81 Mg 1 each PO QPM [facility] Last Admin: 08/16/19 19:36 Dose: Not Given Documented by: Loratadine 10 Mg 1 each PO QPM [facility] [place] Last Admin: 08/16/19 19:37 Dose: Not Given Documented by: Metformin 500 Mg 1 each PO QPM [facility] [place] Last Admin: 08/16/19 19:37 Dose: Not Given Documented by: Polyethylene Glycol (Miralax) 17 gm PO BID [facility] Last Admin: 08/17/19 09:45 Dose: 17 gm Documented by: RUBEN Plan - Labs Result Diagrams: 08/17/19 09:00 08/17/19 09:00
[2019-08-17 15:34] LABS: HEMATOCRIT 25.4 % (42.0-52.0)
[2019-08-17 16:50] LABS: IMMED. SPIN CROSSMATCH COMPATIBLE
[2019-08-17] MEDS: Non-Formulary MISC (Omeprazole [Prilosec] 20 MG) PO SCH (17:44)
[2019-08-17] MEDS: Non-Formulary MISC (Finasteride [Finasteride] 5 MG) PO SCH (17:44)
[2019-08-17] MEDS: ASPIRIN 81 MG PO SCH (17:44)
[2019-08-17] MEDS: LORATADINE 10 MG PO SCH (17:44)
[2019-08-17] MEDS: METFORMIN 500 MG PO SCH (17:45)
[2019-08-17] MEDS: PRAVASTATIN SODIUM 40 MG PO SCH (17:45)
[2019-08-18] MEDS: CEFTRIAXONE 1GM/50ML BAG 1 GM/50 ML BAG IVPB SCH (02:39)
[2019-08-18 06:35] LABS: HEMATOCRIT 29.9 % (42.0-52.0); HEMOGLOBIN 9.7 gm/dl (14.0-18.0); MEAN CELL VOLUME 104.2 fl (81-97); MEAN CORPUSCULAR HGB CONC 32.4 g/dl (32-36); MEAN PLATELET VOLUME 11.2 fl (7.4-10.4); PLATELET COUNT 126 K/uL (130-400); RED BLOOD COUNT 2.87 M/uL (4.40-5.70); RED CELL DISTRIBUTION WIDTH 23.1 % (11.5-14.5); WHITE BLOOD COUNT W/O DIFF 3.5 K/uL (4.2-12.2)
[2019-08-18 06:43] LABS: MEAN CORPUSCULAR HEMOGLOBIN 33.7 pg (27-33)
[2019-08-18 06:55] LABS: ALB/GLOB RATIO 1.9 (1.1-1.8); ALKALINE PHOSPHATASE 132 U/L (40-129); ALT/SGPT 276 U/L (<41); AMYLASE 30 U/L (28-100); AST/SGOT 84 U/L (10.0-50.0); BLOOD UREA NITROGEN 12 mg/dL (8-23); CREATININE 0.6 mg/dL (0.7-1.2); EST GLOMERULAR FILTRATION RATE > 60 mL/min; GLUCOSE,RANDOM 151 mg/dL (74-109); LIPASE 25 U/L (13-60); TOTAL PROTEIN 6.1 g/dL (6.6-8.7)
[2019-08-18 06:58] LABS: ANISOCYTOSIS 3+; OVALOCYTES 1+
--- NOTE | 2019-08-18 09:12 | Discharge Summary ---
Providers Discharge Summary Date: 08/18/19 Date of admission: 08/17/19 16:31 Expected Date of Discharge: 08/18/19 Attending physician: SULEMA RIOS Primary care physician: JEROMY BYRD D.O. Physical Exam - Vital Signs Vital Signs: Vital Signs - Last 24 Hrs Temp Pulse Resp BP Pulse Ox 08/18/19 07:45 98.1 F 85 20 160/79 95 08/18/19 05:00 98.9 F 83 18 150/78 96 08/17/19 20:00 99.8 F H 80 18 148/74 95 08/17/19 16:00 130/74 92 L 08/17/19 11:23 87 16 116/52 98 - General General Appearance: Alert, Oriented x3, Cooperative, No acute distress Limitations: Physical limitation (Weakness/HFR, improving) - Head Head exam: Atraumatic, Normocephalic, Normal inspection - Eye Eye exam: Normal appearance - Neck Neck exam: Normal inspection, Full ROM - Respiratory Respiratory exam: Normal lung sounds bilaterally. negative: Rales, Respiratory distress, Rhonchi, Stridor, Wheezes - Cardiovascular Cardiovascular Exam: Regular rate, Normal rhythm, Normal heart sounds Peripheral Pulses: 2+: Dorsalis Pedis (R), Dorsalis Pedis (L) - GI/Abdominal GI/Abdominal exam: Soft, Normal bowel sounds, Tenderness (suprapubic, very mild). negative: Distended, Guarding, Rebound, Rigid - Rectal Rectal exam: Deferred - exam: Deferred - Extremities Extremities exam: Normal inspection. negative: Pedal edema - Back Back exam: Reports: Normal inspection. Denies: CVA tenderness (R), CVA tenderness (L) - Neurological Neurological exam: Alert, Oriented X3 - Psychiatric Psychiatric exam: Normal affect, Normal mood - Skin Skin exam: Dry, Intact, Pallor Type of lesion: negative: abrasion Hospitalization - Hospitalization Admission Diagnosis: Generalized weakness. Rigors - Problem List/Discharge Diagnosis (1) Dysuria Current Visit: Yes Status: Acute Base Code: R30.0 - DYSURIA Comment: 08/18/19: -Decreased urine output at home/in ER, hx retention sees Dr. Yeboah -Still c/o burning with initiation of stream followed by weak stream, taking Finasteride only as Myrbertriq didn't help -Abdomen mildly TTP Suprapubic region, RLQ resolved -CT Abdomen/Pelvis: No acute abdominal/pelvic disease process. Cystic lesions in the kidneys. -Repeat CT w/oral & IV contrast: 1. The cause of pain is not definitively identified: Prominent stool within the colon. No high-grade obstruction. Prior appendectomy. No aortic aneurysm or dissection. No evidence of bowel ischemia. Prominent intrahepatic and extrahepatic bile ducts are greater than expected for age and prior cholecystectomy although this remains the most likely explanation. Correlation with biochemical and clinical evidence for biliary obstruction may guide the need for additional evaluation -Bladder scan in ER 84 ml -PVR bladder scan 08/16/19 was 24 ml -UA: Cloudy, pH 5.5, 1.020 spec. gravity, negative all others -Urine culture still pending -Tylenol/Toradol/Morphine/GI cocktail ordered PRN pain -SL, tolerating PO fluids (2) Chronic anemia Current Visit: Yes Status: Chronic Base Code: D64.9 - ANEMIA, UNSPECIFIED Comment: 08/18/19: - Chronic anemia d/t MDS. Receives blood transfusions for Hgb < 8.0. - Hgb 9.0 >> 8.9 >> 7.0. One unit PRBC transfused, repeat 8.0, second unit transfused Hgb >> 9.7. - Aranesp given 08/16/19 ok per Oncologist, Dr Pop. (3) Weakness Current Visit: No Status: Acute Base Code: R53.1 - WEAKNESS Comment: 08/18/19: -Reported that patient was having increased weakness, falls at home -PT/OT working with patient on independent transfers/mobility training -Pt with HFR band on, signage on door and slippers on, up with assist, call light and at bedside (4) DVT prophylaxis Current Visit: No Status: Acute Base Code: Z29.9 - ENCOUNTER FOR PROPHYLACTIC MEASURES, UNSPECIFIED Comment: 08/18/19: - High risk due to age, hospitalization, weakness, and illness - Avoiding pharmacologic therapy due to low hemoglobin - Encourage ambulation within the room, SCDs while in bed (5) DNR (do not resuscitate) Current Visit: No Status: Acute Base Code: Z66 - DO NOT RESUSCITATE Comment: 08/18/19: - Patient is a DNR code status this admission - Hospitalization Course Disposition: Home, Self-Care Hospital Course: 08/16/19: Patient presented to ER for "pain everywhere" for a couple hours. Patient denied fevers, chills, urinary symptoms, but pointing to groin area p/Physician. Patient denied known trauma to the abdomen, back or inguinal area. 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 Patient unable to urinate in ER x 3+ hours. Bladder scan revealed only 84 ml urine in the bladder, ER was not able to get urine sample prior to patient being admitted to the Med/Surg floor. Pain improved with IV Ofirmev. PCP: Jeromy Byrd ED Course: Vital Signs Temp Pulse Pulse Resp BP BP Pulse Ox 08/16/19 06:20 115 H 93/58 95 08/16/19 05:08 117 H 22 106/60 95 08/16/19 04:05 98.6 F 72 24 114/95 92 L Intake & Output 08/14/19 08/15/19 08/16/19 08/17/19 06:59 06:59 06:59 06:59 Intake Total 100 Balance 100 Weight 175 lb 175 lb Intake: IV 100 Laboratory 08/16/19 08/16/19 08/16/19 10:10 04:16 04:16 WBC RBC Hgb Hct MCV MCH MCHC RDW Plt Count MPV Gran % Lymphocytes % Monocytes % Eosinophils % Basophils % Absolute Neutrophils Sodium 143 Potassium 4.0 Chloride 103 Carbon Dioxide 25.0 Anion Gap 15.0 BUN 18 Creatinine 0.9 Estimated GFR > 60 Random Glucose 219 H Calcium 9.3 Total Bilirubin 0.50 AST 20 ALT 30 Alkaline Phosphatase 92 Creatine Kinase 49 Total Protein 6.5 L Albumin 4.6 Globulin 1.9 Albumin/Globulin Ratio 2.4 H Urine Color Yellow Urine Appearance Sl cloudy Urine pH 5.5 Ur Specific [place] 1.020 Urine Protein Negative Urine Glucose (UA) Negative Urine Ketones Negative Urine Blood Negative Urine Nitrite Negative Urine Bilirubin Negative Urine Urobilinogen 0.2 Ur Leukocyte Esterase Negative Influenza Type A Ag Negative Influenza Type B Ag Negative 08/16/19 04:16 WBC 11.9 RBC 2.46 L Hgb 8.9 L Hct 27.7 L MCV 112.6 H MCH 36.1 H MCHC 32.1 RDW 21.2 H Plt Count 239 MPV 11.6 H Gran % 78.2 Lymphocytes % 13.4 L Monocytes % 7.3 Eosinophils % 0.8 Basophils % 0.3 Absolute Neutrophils 9.29 Sodium Potassium Chloride Carbon Dioxide Anion Gap BUN Creatinine Estimated GFR Random Glucose Calcium Total Bilirubin AST ALT Alkaline Phosphatase Creatine Kinase Total Protein Albumin Globulin Albumin/Globulin Ratio Urine Color Urine Appearance Urine pH Ur Specific [place] Urine Protein Urine Glucose (UA) Urine Ketones Urine Blood Urine Nitrite Urine Bilirubin Urine Urobilinogen Ur Leukocyte Esterase Influenza Type A Ag Influenza Type B Ag Past Surgical History Date/Surgery cholecystectomy appendectomy colonoscopy Past Medical History Hx Respiratory Disorders Yes Hx Pneumonia Yes Hx Cardiovascular Disorders Yes Hx Heart Attack Yes Comment: high cholesterol Hx Neurological Disorders Yes Hx Dizziness Yes Hx Neuropathy Yes: Arms and Legs Hx Weakness Yes Hx Speech Problem Yes Comment: Cerebellar Ataxia Hx Gastrointestinal Disorders Yes Hx Gastroesophageal Reflux Yes Hx of Polyps Yes Hx Weight Loss/Weight Gain Yes: weight loss of 30lbs in last year Hx Genitourinary Disorders Yes Hx Kidney Stones Yes Hx Prostate Problems Yes Hx Endocrine Disorders Yes Hx of NIDDM Yes: Diet controlled Hx Musculoskeletal Disorders Yes Hx Arthritis Yes Hx Psychiatric Problems No Hx Hematology/Oncology Disorders Yes Hx Anemia Yes: Chronic Anemia Hx Blood Disorders Yes Hx Cancer Yes: MDS * Hx Chemotherapy Yes Hx Blood Transfusions Yes (29 pints p/pt) Hx Blood Transfusion Reaction No History of multi drug resistant No infection History of exposure to TB No History of positive TB test No History of C-Difficile No Hx Influenza Vaccination Yes Hx Pneumococcal Vaccination Yes Immunizations Up to Date Yes Social History Alcohol None Drug Use None Smoking Status Smoking Status Former smoker Uses/Used Cigarettes Family Medical History Any Significant Family Hx? Yes Hx Cancer Brother/Sister Hx Dementia Mother Hx Diabetes Brother/Sister Hx Heart Disease Brother/Sister Skin Risk Assessment Scale Sensory Perception No Impairment Moisture Risk Rarely Moist Activity Risk Walks Occasionally Mobility Risk Slightly Limited Nutrition Risk Adequate Friction & Shear Risk No Apparent Problem Skin Risk Total Score (points) 20 Skin Risk Evaluation No Risk Wound Present on Admission Wound present upon admission? No Medications Acetaminophen (Tylenol 500mg Tab) 1,000 mg PO Q6H PRN PRN Reason: PAIN - MILD(1-4)/FEVER Sodium Chloride () 500 mls @ 0 mls/hr IV .Q0M ЕЛЕНА Sodium Chloride () 1,000 mls @ 100 mls/hr IV .Q10H ONE Acetaminophen (Ofirmev) 1,000 mg in 100 mls @ 400 mls/hr IVPB NOW ONE Stop: 08/16/19 04:23 Last Infusion: 08/16/19 07:20 Dose: 0 mls/hr Documented by: RAYNE Problems Dysuria (Acute) R30.0 Chronic anemia (Chronic) D64.9 06/30/19: - Hgb 8.2, at admission, which is patient's baseline due to MDS. Receives blood transfusions every 5-6 weeks, with last transfusion 2 weeks ago - Hgb 6.6 --> 7.8 --> 9.2 after 2 units of PRBCs - Oncologist, Dr. Pop, to update on patient's status 08/16/19: Patient in room with , laying in bed upon arrival to room. Patient A&Ox4 with delayed responses and intermittent garbled speech r/t Cerebellar Ataxia. Patient reports right lower abdominal/suprapubic pain and inability to urinate. Patient sees Dr Yeboah for retention issues. Patient explained POC, need for urine sample and all questions answered. Patient with chronic anemia and due to receive Aranesp Wednesdays. Per patient he does not receive blood transfusion until Hgb < 8.0. Pt having increased weakness, PT/OT Eval ordered. 08/18/19: Patient reporting he feels much better. His pain has almost resolved states he feels the palpation, but it doesn't make him jump off the bed anymore. Patient's reported making an appointment with Dr Doll's PA to r/o bowel issues for the pain since all of his testing came back normal. Patient will follow-up with Dr. Byrd as scheduled and then switch to Dr. Rios for his future appointments. Patient did have BM again this AM and denies feeling constipated. Afebrile throughout the night. No nursing concerns noted. Procedures: Imaging and X-Rays 08/16/19 04:08 ABDOMEN/PELVIS WO CONTRAST [CT] Stat 08/16/19 05:34 CHEST 1 VIEW [RAD] Stat 08/16/19 17:58 ABDOMEN/PELVIS CTA [CTA] Stat Abnormal Labs: Abnormal Lab Results 08/16/19 08/16/19 08/17/19 Range/Units 04:16 04:16 07:19 WBC (4.2-12.2) K/uL RBC 2.46 L (4.40-5.70) M/uL Hgb 8.9 L (14.0-18.0) gm/dl Hct 27.7 L (42.0-52.0) % MCV 112.6 H (81-97) fl MCH 36.1 H (27-33) pg RDW 21.2 H (11.5-14.5) % Plt Count (130-400) K/uL MPV 11.6 H (7.4-10.4) fl Lymphocytes % 13.4 L (16-45) % Monocytes (0-9) % Creatinine (0.7-1.2) mg/dL POC Glucose 128 H (70-110) mg/dL Random Glucose 219 H (74-109) mg/dL Calcium (8.8-10.2) mg/dL AST (10.0-50.0) U/L ALT (<41) U/L Alkaline Phosphatase (40-129) U/L Total Protein 6.5 L (6.6-8.7) g/dL Albumin (4.0-5.0) g/dL Albumin/Globulin Ratio 2.4 H (1.1-1.8) Amylase (28-100) U/L Lipase (13-60) U/L 08/17/19 08/17/19 08/17/19 Range/Units 09:00 09:00 15:15 WBC 2.9 L (4.2-12.2) K/uL RBC 1.93 L (4.40-5.70) M/uL Hgb 7.0 L 8.0 L (14.0-18.0) gm/dl Hct 21.9 L 25.4 L (42.0-52.0) % MCV 113.5 H (81-97) fl MCH 36.2 H (27-33) pg RDW 21.6 H (11.5-14.5) % Plt Count 111 L (130-400) K/uL MPV 11.3 H (7.4-10.4) fl Lymphocytes % (16-45) % Monocytes (0-9) % Creatinine (0.7-1.2) mg/dL POC Glucose (70-110) mg/dL Random Glucose 283 H (74-109) mg/dL Calcium 8.6 L (8.8-10.2) mg/dL AST 257 H (10.0-50.0) U/L ALT 426 H (<41) U/L Alkaline Phosphatase 151 H (40-129) U/L Total Protein 5.7 L (6.6-8.7) g/dL Albumin 3.9 L (4.0-5.0) g/dL Albumin/Globulin Ratio 2.2 H (1.1-1.8) Amylase 116 H (28-100) U/L Lipase 88 H (13-60) U/L 08/18/19 08/18/19 Range/Units 06:30 06:30 WBC 3.5 L (4.2-12.2) K/uL RBC 2.87 L (4.40-5.70) M/uL Hgb 9.7 L (14.0-18.0) gm/dl Hct 29.9 L (42.0-52.0) % MCV 104.2 H (81-97) fl MCH 33.7 H (27-33) pg RDW 23.1 H (11.5-14.5) % Plt Count 126 L (130-400) K/uL MPV 11.2 H (7.4-10.4) fl Lymphocytes % (16-45) % Monocytes 14.0 H (0-9) % Creatinine 0.6 L (0.7-1.2) mg/dL POC Glucose (70-110) mg/dL Random Glucose 151 H (74-109) mg/dL Calcium (8.8-10.2) mg/dL AST 84 H (10.0-50.0) U/L ALT 276 H (<41) U/L Alkaline Phosphatase 132 H (40-129) U/L Total Protein 6.1 L (6.6-8.7) g/dL Albumin (4.0-5.0) g/dL Albumin/Globulin Ratio 1.9 H (1.1-1.8) Amylase (28-100) U/L Lipase (13-60) U/L Condition at Discharge: (2) Stable VTE Discharge VTE Reason For No Overlap Therapy: Contraindicated (Chronic low Hgb) Discharge Medications - Discharge Medications Prescriptions: RX: Cefdinir 300 mg PO BID 5 Days #10 capsule Home Medications: Ambulatory Orders RX: Aspirin 81 mg PO QD tab.chew 05/05/17 [Last Taken 08/16/19] RX: Finasteride 5 mg PO QD tab 05/05/17 [Last Taken 08/16/19] RX: Loratadine 10 mg PO QD tab 05/05/17 [Last Taken 08/16/19] RX: Metformin HCl 500 mg PO DAILY tab 05/05/17 [Last Taken 08/16/19] RX: Omeprazole [Prilosec] 20 mg PO QD cap 05/05/17 [Last Taken 08/16/19] RX: Pravastatin Sodium 40 mg PO QD tab 05/05/17 [Last Taken 08/16/19] RX: Polyethylene Glycol 3350 [Miralax] 17 gm PO BID #1 bottle 06/01/18 [Last Taken 08/16/19] RX: Cefdinir 300 mg PO BID 5 Days #10 capsule 08/18/19 [Last Taken Unknown] Discharge Plan - Discharge Instructions Activity at Discharge: Increase Activity as Tolerated Diet at Discharge: Advance to Usual Diet Instructions: Fall Prevention for Older Adults (DC), Myelodysplastic Syndromes (DC), Acute Abdominal Pain (DC), Dysuria (GEN), Weakness (DC), Anemia (DC) Additional Instructions: Activity: Increase Activity as Tolerated Diet: Advance to Usual Diet Consults: [] Follow Up: [Keep appointment with Dr. Byrd, future appointments to be with Dr. Rios Appointment made with KIRSTIE Pool] Dressing/Wound Care: (Type) (Change) Additional: [] Continue antibiotics: Cefdinir beginning tonight. Return to ER if symptoms worsen, fever returns or inability to urinate. Quality Measures - Quality Measures Quality Measures: Advance Directives, Documentation of Current Medications in Medical Record, Elder Maltreatment Screen and Follow-Up Plan, Screening for High Blood Pressure and F/U Documented - Current Medications Quality Measure: Measure #130: Documentation of Current Medications Documentation of Current Medications: <Current Medications Documented/Reviewed> [G7548] - Blood Pressure Screening Quality Measure: Screening for High Blood Pressure and Follow-Up Documented Does Patient Have Any of the Following: No Blood Pressure Classification: Hypertensive Reading Systolic Measurement: 114 Diastolic Measurement: 95 Screening for High Blood Pressure: < First Hypertensive BP, F/U Documented > [G8950] First Hypertensive Follow-up Interventions: Referral to alternative/primary care provider. - Advance Directives Quality Measure: Measure #47: Care Plan Advance Directives Established: Yes Advance Directives Information Provided To Patient: No Advance Directives on File: Yes Living Will: Yes Power of Resident Care Technician: Yes Power of Resident Care Technician Name: Dayna Cardona Advance Care Planning: <Care Plan/Decision Maker Documented; Discussed & Documented> [6413F] - Elder Abuse Suspicion Index Screening: Elder Abuse Suspicion Index Screening Rely on people for bathing, dressing, shopping, banking, etc: No Prevented from getting food, clothes, medication, etc: No Made to feel shamed or threatened by someone: No Forced to sign papers or use money against will: No Feel afraid, touched in ways not wanted or hurt physically: No Poor eye contact, withdrawn, malnourished, cuts or bruises: No Screening Result: Negative result EASI Reference Information: Cassandra KNIGHT, Ирина C, Nia Law, Annette Collins.Development and validation of a tool to assist physicians identification of elder abuse: The Elder Abuse Suspicion Index (EASI ). Journal of Elder Abuse and Neglect, 2008; 20 (3): 276-300. - Elder Maltreatment Screen Quality Measures: Elder Maltreatment Screen and Follow-Up Plan Elder Maltreatment Screen: <Negative, No Follow-Up Plan Required> [G9344]
== END 2019-08-18 10:00 | disposition home or self-care (01) | DRG 696 ==
LOC: ER 03:58 → MEDSURG 07:42 → OBSVTOIN 08-17 16:31
PROVIDERS: ADMIT Internal Medicine; ATTEND Internal Medicine
DX: R30.0 Dysuria (principal); G11.9 Hereditary ataxia, unspecified; Q42.8 Congenital absence, atresia and stenosis of other parts of large intestine; D64.9 Anemia, unspecified; D46.9 Myelodysplastic syndrome, unspecified; R53.1 Weakness; G62.9 Polyneuropathy, unspecified; R11.2 Nausea with vomiting, unspecified; E11.9 Type 2 diabetes mellitus without complications; E78.00 Pure hypercholesterolemia, unspecified; I25.2 Old myocardial infarction; Z87.891 Personal history of nicotine dependence; Z66 Do not resuscitate; M19.90 Unspecified osteoarthritis, unspecified site; K21.9 Gastro-esophageal reflux disease without esophagitis; N28.9 Disorder of kidney and ureter, unspecified
CPT/HCPCS: 36430; 99284; 96372; 96365; 96366; 99285; 82550; 82150; 83690; 85025 ×2; 85018; 85014; 80053 ×2; 36416; 82948; 81003; 87400; 86900; 86901; 86850; 71045; 74174; 74176; G0378 ×17; P9016; Q9967; J1885 ×2; J2765; J2405; J0881; J0696 ×3; 83735; 85027; 99220; 99233; 99239; J7030